=== PATIENT | female | born 1980 | race Caucasian/White ===

== ENCOUNTER → 2018-06-04 | Outpatient (CLI) | payer OTHER, SELFPAY | END | disposition home or self-care (01) | LOC: PSN 14:01 | PROVIDERS: Family Provider Family Medicine; PCP Family Medicine; Referring Provider Family Medicine; Visit Provider Family Medicine | DX: R00.2 Palpitations (principal) | CPT/HCPCS: 93225; 93226 ==

== ENCOUNTER → 2018-12-09 19:54 | Outpatient (CLI) | payer OTHER, SELFPAY | PROVIDERS: Family Provider Family Medicine; PCP Family Medicine; Referring Provider Family Medicine; Visit Provider Family Medicine | DX: G47.10 Hypersomnia, unspecified (principal); R06.83 Snoring | CPT/HCPCS: 95810 ==

== ENCOUNTER → 2019-01-28 20:17 | Outpatient (CLI) | payer OTHER, SELFPAY ==
[2018-12-27 07:39] VITALS: BMI 33.1
== END ==
PROVIDERS: Family Provider Family Medicine; PCP Family Medicine; Referring Provider Nurse Practitioner Acute Care; Visit Provider Nurse Practitioner Acute Care
DX: G47.33 Obstructive sleep apnea (adult) (pediatric) (principal)
CPT/HCPCS: 95811

== ENCOUNTER → 2019-02-01 06:52 | Outpatient (CLI) | payer OTHER, SELFPAY ==
[2018-12-27 07:39] VITALS: BMI 33.1
--- NOTE | 2019-02-07 09:23 | PFT ---
INTRODUCTION: The patient is a 38-year-old female that presents for pulmonary function studies secondary to a diagnosis of shortness of breath. Respiratory therapy reports good patient effort. Bronchodilators were used during testing. INTERPRETATION: Forced expiration spirometry demonstrates no evidence of a large airways obstructive ventilatory defect. There was no significant response to aerosolized bronchodilators. Spirograms are of good quality and plateau normally. The respiratory flow volume loop is normal. Body plethysmography was performed and reveals lung volumes to be within normal limits. Diffusing capacity by single breath CO was also within normal limits. IMPRESSION: Normal pulmonary function studies.
== END ==
PROVIDERS: Family Provider Family Medicine; PCP Family Medicine; Referring Provider Nurse Practitioner Acute Care; Visit Provider Nurse Practitioner Acute Care
DX: R06.02 Shortness of breath (principal)
CPT/HCPCS: 94060; 94726; 94729

== ENCOUNTER 2019-08-01 11:52 | Emergency (ER) | payer BC, SELFPAY ==
[2019-07-27 05:40] VITALS: BMI 32.5
[2019-08-01 11:54] VITALS: BP 130/76; PULSE 79; PULSE 81; RESP 14; RESP 18; TEMP 36.8; O2SAT 97; BMI 31.9
--- NOTE | 2019-08-01 12:24 | ED.DCSUM_ITS ---
History of Present Illness Chief Complaint: Wound Informant: Patient Onset: Today Context: Sudden Onset Narrative: Patient is a 39-year-old female status post hysterectomy presenting with bleeding wound on her right labia. Patient was taking a shower and she thinks she must of scratched hemangioma that she has had on her labia. She denies any pain. After she got the shower was drying her hair and pressure teeth noted she was bleeding. She applied direct pressure but continued to bleed so she came to the emergency room for further evaluation. Patient denies any other complaints at this time. She denies any history of any bleeding issues. She does not take any blood thinners or aspirin. She denies any lightheadedness. States she is otherwise feeling well today. No other complaints at this time. Past Medical History - Allergies and Home Meds Allergies/Adverse Reactions: Allergies amoxicillin [From Augmentin] Adverse Reaction (Mild, Verified 08/01/19 11:53) Abd cramps/diarrhea GI upset/Yeast infection clavulanic acid [From Augmentin] Adverse Reaction (Mild, Verified 08/01/19 11:53) Abd cramps/diarrhea GI upset/Yeast infection Primary Care Physician: Piter Andrew DO [Primary Care Provider] - Past Medical History: - - Rheumatoid arthritis Surgical History: hysterectomy Lives: Spouse/ Significant Other, With Family Smoking Status: Former smoker Review of Systems General: Denies: Chills, Fever, Sweats Eyes: Denies: Visual changes - bilaterally, Diplopia ENT: Denies: Rhinorrhea, Sore throat Cardiovascular: Denies: Chest pain, Palpitations Respiratory: Denies: Dyspnea, Cough, Dyspnea on exertion Gastrointestinal: Denies: Abdominal pain, Nausea, Vomiting, Diarrhea, Melena, Hematochezia Genitourinary: Denies: Dysuria, Hematuria, Frequency Musculoskeletal: Denies: Back pain, Extremity Pain Skin: Reports: Wounds - Right labia. Denies: Rash Neurological: Denies: Headache, Weakness, Numbness Physical Exam Vital Signs/Narrative: Vital Signs Temp Pulse Resp BP Pulse Ox 08/01/19 11:54 98.2 F 81 14 130/76 H 97 Inital Vital Signs reviewed: Yes General: Well nourished, Well developed, No Acute Distress Head: Normocephalic, Atraumatic Eyes: Perrl, EOMI ENT: Moist mucous membranes, No rhinorrhea Neck: Supple, Nontender Cardiovascular: Regular rate, Regular rhythm, No murmurs Respiratory: No distress, CTA bilaterally, Chest nontender Abdomen: Soft, Nontender, Nondistended, Normal bowel sounds : - - See skin exam. No external signs of any other trauma, edema or swelling. No internal exam performed. Back: Nontender, Normal Inspection. Negative for: CVA tenderness Extremities: Nontender, No edema Skin: Normal color, No rash, - - Small wound on the proximal inner right labia with dried blood. No active bleeding. There are 2 areas of dried blood next to each other, exact source of the blood is not entirely clear.. Negative for: Pallor Neurological: Alert, Oriented x3, Cranial nerves II-XII grossly intact, Normal Strength, Normal Sensation Psychological: Normal affect, Normal Mood Diagnostic/Tx/Re-eval - Medical Decision Making Patient is evaluated for bleeding wound after actually scratching hemangioma on her right labia. She appears nontoxic and in no acute distress. On my exam patient is no longer bleeding. Gelfoam will be applied to the area in case rebleeding does occur as well as a pressure dressing. Patient is agreeable this plan. She is instructed to follow-up with her PRESS PIPE INSPECTOR as needed. Patient is counseled on signs and symptoms requiring return to the emergency room. Patient verbalizes agreement and understand this plan. Patient discharged home in stable and improved condition. ED Disposition - Plan for ED Patient: Disposition: Home or Assisted Living Diagnosis: Open wound of genital labia Instructions: ED Abrasion Referrals: Piter Andrew DO [Primary Care Provider] - Additional Instructions: Continue to apply pressure with gauze for the next day or 2. You may put more Gelfoam on the area of bleeding if it starts to bleed again with initial Gelfoam falls off. Please follow-up with your PRESS PIPE INSPECTOR as needed.
[2019-08-01 12:42] VITALS: RESP 18
[2019-08-01] MEDS: Gelfoam 12-7 MM Sponge (1) 1 EACH TP (12:42)
== END 2019-08-01 12:44 | disposition home or self-care (01) ==
PROVIDERS: Emergency Provider Emergency Medicine; PCP Family Medicine
DX: S31.40XA Unspecified open wound of vagina and vulva, initial encounter (principal); X58.XXXA Exposure to other specified factors, initial encounter; Y93.E1 Activity, personal bathing and showering; Y92.9 Unspecified place or not applicable; M06.9 Rheumatoid arthritis, unspecified; Z87.891 Personal history of nicotine dependence
CPT/HCPCS: 99282

== ENCOUNTER → 2019-08-02 10:38 | Outpatient (CLI) | payer BC, SELFPAY ==
[2019-08-02 10:03] VITALS: BMI 31.3
--- NOTE | 2019-08-02 10:39 | RAD_ITS ---
STUDY: X-RAY - LUMBAR SPINE REASON FOR EXAM: Female, 39 years old. LBP TECHNIQUE: 4 view(s) of the lumbar spine were obtained. COMPARISON: None FINDINGS: Normal lumbar lordosis. There is a dextroscoliosis of the lumbar spine at the thoracolumbar junction.. There is a normal alignment of the vertebrae. Normal vertebral bodies and endplates. Normal disc space heights. The soft tissue structures are unremarkable. RAD/L/S Spine Min 4 Views IMPRESSION: Moderate/severe dextroscoliosis at the thoracal lumbar junction. Electronically Signed: Maximus Majano, at 10:35 EDT , Service support ,
--- NOTE | 2019-08-02 10:39 | RAD_ITS ---
STUDY: X-RAY - THORACIC SPINE REASON FOR EXAM: Female, 39 years old. BACK PAIN TECHNIQUE: AP and lateral view(s) of the thoracic spine were obtained. COMPARISON: None. FINDINGS: Normal kyphosis of the thoracic spine. Moderate levoscoliosis centered at the T6-T7 level. Normal thoracic vertebrae and endplates. Normal disc space heights. Marked degree of dextroscoliosis at the thoracal lumbar junction. The soft tissue structures are unremarkable. RAD/Thoracic Spine 2 Views IMPRESSION: Moderate levoscoliosis at the T6-T7 level as well as a marked degree of dextroscoliosis at the thoracolumbar junction. Electronically Signed: Maximus Majano, at 10:34 EDT , Service support ,
== END ==
PROVIDERS: PCP Family Medicine; Referring Provider Chiropractor; Visit Provider Chiropractor
DX: M99.03 Segmental and somatic dysfunction of lumbar region (principal); M06.9 Rheumatoid arthritis, unspecified; M45.9 Ankylosing spondylitis of unspecified sites in spine; M99.02 Segmental and somatic dysfunction of thoracic region
CPT/HCPCS: 72070; 72110

== ENCOUNTER 2019-08-08 16:40 | Outpatient (CLI) | payer BC, SELFPAY ==
[2019-08-02 10:03] VITALS: BMI 31.3
== END 2019-08-08 16:45 | disposition home or self-care (01) ==
LOC: LABSPEC 08-09 15:22
PROVIDERS: PCP Family Medicine; Referring Provider Family Medicine; Visit Provider Family Medicine
DX: Z20.828 Contact with and (suspected) exposure to other viral communicable diseases (principal)
CPT/HCPCS: 87635; G2023; U0003

== ENCOUNTER → 2019-12-30 09:50 | Outpatient (CLI) | payer BC, SELFPAY ==
[2019-09-13 16:35] VITALS: BMI 31.9
[2019-12-30 12:58] LABS: Hemoglobin A1c 6.3 % (3.8-5.6)
[2019-12-30 13:28] LABS: ALB/GLOB Ratio 1.1 RATIO (0.9-2.4); AST(SGOT) 4 U/L (15-37); Alanine Aminotransfer ALT/SGPT 19 U/L (13-56); Albumin, Serum 3.8 g/dL (3.2-5.0); Alkaline Phosphatase 58 U/L (45-117); Anion Gap 5 (5-15); BUN 8 mg/dL (7-18); BUN/Creat Ratio 10.5 RATIO (10-20); Calcium,Total 9.4 mg/dL (8.5-10.1); Chloride 105 mmol/L (98-107); Cholesterol 253 mg/dL (200); Creatinine, Serum 0.76 mg/dL (0.55-1.02); EST Glomerular Filtration Rate 91 mL/min (>60); Est Glom Filt Rate - Afr Amer 110 mL/min (>60); Globulin 3.6 g/dL (2.2-4.2); Glucose 113 mg/dL (74-106); High Density Lipoprotein 33 mg/dL; Potassium 3.8 mmol/L (3.5-5.1); Protein, Total 7.4 g/dL (6.4-8.2); Sodium Level 139 mmol/L (136-145); Triglycerides 172 mg/dL; Very Low Density Lipoprotein 34 mg/dL (5-40)
== END ==
PROVIDERS: PCP Family Medicine; Referring Provider Family Medicine; Visit Provider Family Medicine
DX: Z00.00 Encounter for general adult medical examination without abnormal findings (principal); R73.01 Impaired fasting glucose
CPT/HCPCS: 36415; 80053; 80061; 83036

== ENCOUNTER → 2020-08-09 15:27 | Outpatient (CLI) | payer BC, SELFPAY ==
[2020-08-09 13:30] VITALS: BMI 34.5
[2020-08-09 16:42] LABS: NATERA MAILED SPECIMEN
[2020-08-09 17:11] LABS: Prolactin 3.5 ng/mL
== END ==
PROVIDERS: PCP Family Medicine; Visit Provider Obstetrics & Gynecology
DX: R53.83 Other fatigue (principal)
CPT/HCPCS: 36415; 84146; 84443

== ENCOUNTER → 2021-09-11 | Outpatient (CLI) | payer OTHER, SELFPAY ==
--- NOTE | 2021-09-11 12:02 | BI_ITS ---
MAMMOGRAPHY - BILATERAL SCREENING 3-D TOMOSYNTHESIS REASON FOR EXAM: Female, 41 years old. Breast cancer screening. PERTINENT HISTORY: History of breast cancer in grandmother, age not identified. TECHNIQUE: 2-D mammograms and 3-D Tomosynthesis of the breast (s) were performed. CAD was performed. COMPARISON: 03/29/2015. FINDINGS: The breast composition is almost entirely fat. 2 new low density partially obscured masses in the upper outer quadrant of the left breast the most medial of these measures 12 mm in diameter and the most lateral measures 11 mm in diameter. These likely represent cysts. However, the patient should return for compression spot views and ultrasound of the left breast for further evaluation of these low-density masses. Right breast is stable. BI/SCRN MAMM (CAD)W/JASMYNE BILAT IMPRESSION: 2 new low density, partially obscured masses in the left breast for which further workup, as outlined above, is recommended. ASSESSMENT CATEGORY: BIRADS Category 0: Incomplete. Need additional imaging evaluation as above. A letter regarding these results will be sent to the patient by the facility within 30 days. FOLLOW UP RECOMMENDATION: Additional imaging recommended as above. (E) Approximately 10% of breast cancers are not detected by mammography. A normal mammogram should not delay biopsy of a clinically suspicious abnormality. Electronically Signed: Danny Christie MD at 13:59 EDT ,
== END | disposition home or self-care (01) ==
LOC: OPBI 12:01
PROVIDERS: PCP Family Medicine; Visit Provider Obstetrics & Gynecology
DX: Z12.31 Encounter for screening mammogram for malignant neoplasm of breast (principal)
CPT/HCPCS: 77063; 77067

== ENCOUNTER → 2021-09-17 | Outpatient (CLI) | payer OTHER, SELFPAY ==
--- NOTE | 2021-09-17 14:16 | BI_ITS ---
MAMMOGRAPHY - UNILATERAL DIAGNOSTIC: LEFT BREAST REASON FOR EXAM: Female, 41 years old. Abnormal screening mammogram. PERTINENT HISTORY: Grandmother with breast cancer. TECHNIQUE: Digital unilateral breast dakotah (3D mammographic acquisition) in the CC and MLO projections. 2-D mediolateral oblique (MLO) and craniocaudad (CC) views of both breasts were obtained. CAD: Full Field Digital Mammography with Computer Added Detection was performed. COMPARISON: Comparison is made with prior study dated 09/11/2021. FINDINGS: Breast Composition: There are scattered areas of fibroglandular density. Stable appearance of the 2 low density nodules in the upper outer quadrant of the left breast. Correlation with ultrasound is recommended. No other significant abnormalities are identified. BI/DIAG MAMM W/CAD, UNILAT IMPRESSION: Persistent nodules in the anterior upper outer quadrant of the left breast as described. Correlation with ultrasound is recommended. ASSESSMENT CATEGORY: BIRADS Category 0: Incomplete. Need additional imaging evaluation. A letter regarding these results will be sent to the patient by the facility within 30 days. Approximately 10% of breast cancers are not detected by mammography. A normal mammogram should not delay biopsy of a clinically suspicious abnormality. Electronically Signed: Maximus Majano MD at 15:11 EDT ,
--- NOTE | 2021-09-17 14:48 | US_ITS ---
STUDY: ULTRASOUND BREAST - LEFT REASON FOR EXAM: Female, 41 years old. Abnormal screening mammogram. TECHNIQUE: Axial and longitudinal images of the LEFT breast were performed with a high resolution ultrasound transducer. # OF IMAGES: 60 COMPARISON: Comparison is made with prior mammogram dated 09/11/2021 and 09/17/2021. FINDINGS: LEFT Breast: The mammographic abnormality corresponds to a cluster of cysts at the 12 o''clock position of the breast at 3 cm from the nipple. The largest cyst measures 1 cm x 1 cm x 0.4 cm. US/Breast Limited Unilateral IMPRESSION: The mammographic abnormality corresponds to a cluster of cysts at the 12 o''clock position of the breast at 3 cm from nipple. ASSESSMENT CATEGORY: BIRADS Category 2: Benign. A letter regarding these results will be sent to the patient by the facility within 30 days. Electronically Signed: Maximus Majano MD at 8:47 EDT ,
== END | disposition home or self-care (01) ==
LOC: OPBI 14:14
PROVIDERS: PCP Family Medicine; Visit Provider Obstetrics & Gynecology
DX: R92.2 Inconclusive mammogram (principal)
CPT/HCPCS: 76642; 77065

== ENCOUNTER → 2021-10-09 | Outpatient (CLI) | payer OTHER, SELFPAY ==
[2021-10-09 10:06] LABS: Absolute Lymphocyte Count 3.12 X10^3/uL (0.83-4.51); Absolute Neutrophil Count 4.8 X10^3/uL (2.0-7.7); Basophil# 0.05 X10^3/uL; Basophil% 0.6 % (0-1); Eosinophil# 0.23 X10^3/uL; Eosinophils% 2.7 % (0-5); Hematocrit 39.1 % (37-47); Hemoglobin 13.5 g/dL (12.0-15.0); Lymphocyte # 3.12 X10^3/ul (0.83-4.51); Mean Corp Hgb Conc 34.5 g/dL (32-36); Mean Corpuscular Hgb 31.2 pg (27.0-32.0); Mean Corpuscular Volume 90.3 fL (81-99); Mean Platelet Vol. 10.4 fl (6.2-12.0); Monocyte# 0.43 X10^3/uL; NRBC Flagged by Analyzer 0 % (0-5); Neutrophil # 4.81 X10^3/uL (2.7-7.7); Neutrophil % 55.4 % (47-70); Platelet Count 296 K/mm3 (150-450); RBC Distribution Width CV 12.3 % (11.6-14.6); RBC Distribution Width SD 40.6 fl (35.1-43.9); Red Blood Count 4.33 M/mm3 (4.2-5.4); White Blood Count 8.7 K/mm3 (4.4-11.0)
[2021-10-09 10:21] LABS: Insulin 19.9 mU/L (2.6-37.6)
[2021-10-09 10:23] LABS: Hemoglobin A1c 7.7 % (3.8-5.6)
[2021-10-09 10:26] LABS: ALB/GLOB Ratio 0.9 RATIO (0.9-2.4); AST(SGOT) 8 U/L (15-37); Alanine Aminotransfer ALT/SGPT 18 U/L (13-56); Albumin, Serum 3.4 g/dL (3.2-5.0); Alkaline Phosphatase 51 U/L (45-117); Anion Gap 10 (5-15); BUN 14 mg/dL (7-18); BUN/Creat Ratio 17.5 RATIO (10-20); Calcium,Total 8.8 mg/dL (8.5-10.1); Chloride 102 mmol/L (98-107); Cholesterol 243 mg/dL (200); EST Glomerular Filtration Rate 85 mL/min (>60); Est Glom Filt Rate - Afr Amer 102 mL/min (>60); Globulin 3.9 g/dL (2.2-4.2); Glucose 227 mg/dL (74-106); High Density Lipoprotein 42 mg/dL; Protein, Total 7.3 g/dL (6.4-8.2); Sodium Level 136 mmol/L (136-145); Thyroid Stim Hormone (TSH) 2.51 uIU/mL (0.358-3.74); Triglycerides 230 mg/dL; Very Low Density Lipoprotein 46 mg/dL (5-40)
== END | disposition home or self-care (01) ==
PROVIDERS: PCP Family Medicine; Referring Provider Family Medicine; Visit Provider Family Medicine
DX: Z00.00 Encounter for general adult medical examination without abnormal findings (principal); E78.5 Hyperlipidemia, unspecified; R73.01 Impaired fasting glucose; R79.89 Other specified abnormal findings of blood chemistry
CPT/HCPCS: 36415; 80053; 80061; 83036; 83525; 84443; 85025

== ENCOUNTER 2022-11-14 15:00 | Outpatient (RCR) | payer OTHER, SELFPAY ==
--- NOTE | 2022-10-24 09:34 | HP.PTEVAL ---
Patient's Visit Information Visit Information Visit Information: ELVIA ARZOLA is a 42 year old F referred to Physical Therapy by Dr. Navin Joseph MD with a diagnosis of , SI DYSFUNCTION, AND SACROILITIS. Date of Evaluation: 10/24/22 Physical Therapist: Elli Recinos PT, Cert MDT Visit Plan Frequency: 2x /Week Duration: 4-6 Weeks Plan: *WRITTEN HEP INSTRUCTIONS TO SUPPLEMENT WATER EX* AQUATIC THERAPY FOR PAIN RELEIF, POSTURE CORRECTION/STRENGTHENING, INSTRUCTION IN APPROPRIATE BODY MECHANICS AND ACTIVITY MODIFICATIONS. DLS STARTING WITH A NEUTRAL SPINE PROGRESSING ROM TOLERATED. TRUDY LE ROM, STRETCHING AND STRENGTHENING. HEP INSTRUCTION. 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. Disability: NO Present symptoms: LEFT LOW BACK/SI JOINT AREA PAIN AND LOW BACK ACHINESS ACROSS TRUDY LOW BACK. INTERMITTENT R LE NUMBNESS. 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 Symptoms at onset: LOW BACK PAIN Worse: SITTING IN THE CAR TOO LONG, PROLONGED STANDING, BENDING/GARDENING, TRYING TO STAND UP AFTER PROLONGED BENDING, PROLONGED WALKING/WALKING MORE THAN A FEW MILES. Better: HEAT, MASSAGE, STEROIDS, ANTI-INFLAMMATORY, M. RELAXER, BIOFREEZE. Disturbed sleep: YES Previous history/Previous treatment: MEDICATION, MASSAGE, ACCUPUNCTURE. CHIROPRACTIC A FEW YEARS AGO - WITH BENEFIT FOR ACUTE SX'S. NO INGRIS'S. NO BACK SURGERY. Treatment this episode: MEDICATION AND MASSAGE. PLANNING TO TRY INJECTIONS TO HELP THE PAIN. Coughing/sneezing/straining: NE Gait: STIFFNESS ESPECIALLY IN THE MORNING AND DIFFICULTY STANDING UP STRAIGHT. LEFT LEG ROLLS OUT. Bowel or Bladder Dysfunction: NO Accidents: NO Unexplained weight loss: NO Imagin10/20/22 LUMBAR X-RAY: Stable thoracolumbar dextroscoliosis with chronic L5-S1 degenerative facet arthropathy. 10/20/22 PELVIC X-RAY: MPRESSION: Minimal right acetabular spurring otherwise normal x-ray examination of the pelvis. 10/20/22: X-RAY OF SI JTS: IMPRESSION: Mild SI joint arthrosis. PMH/Recent major surgery: TYPE 2 DIABETIC. RA. Objective Objective: Sitting/Standing Posture: SCOLIOSIS Other Observations: INDEP GAIT AND TRANSFERS. Sensory deficit: TRUDY LE LIGHT TOUCH SENSATION GROSSLY INTACT AND SYMMETRICAL. ROM deficit: TRUDY HIP IR L>R, HS AND GASTROC-SOLEUS COMPLEX TIGHTNESS Motor deficit: TRUDY LE STRENGTH GROSSLY 5/5 WITH MMT'ING EXCEPT HIPS 4/5 Reflexes: 2/3 TRUDY LE'S. Dural Signs: NEGATIVE TRUDY LE'S. Lumbar mvmt loss: flex - NIL ext - MOD TO DIAMOND - INCREASES L LOW BACK/SI JT AREA PAIN R SG - MIN L SG - MOD Core strength: FAIR Palpation: TENDERNESS L SI JT REGION AND SACRAL REGION Balance/Special Test Scores Oswestry Low Back Score: 14 Goals Goal 1:: DECREASE C/O LOW BACK, SACRAL, PELVIC AND LE SX'S. Goal Time Frame: 4-6 Weeks Goal 2:: IMPROVE PERSONAL CARE, LIFTING, WALKING, SITTING, STANDING, SOCIAL LIFE, TRAVEL AND WORK/HOMEMAKING FUNCTION. Goal Time Frame: 4-6 Weeks Goal 3:: INSTRUCT IN PROPHYLAXIS Goal Time Frame: 4-6 Weeks Anticipated Interventions Patient/Client Instruction: Educate patient on: Condition, Plan of Care and Risk Factors For the Purpose of:: To improve self management Therapeutic Exercise to Include: Strength training, Body mechanics, Postural training, Flexibilty training, Gait and locomotor training, Neuromotor development, In an aquatic setting and Dynamic Lumbar Stabilization For the Purpose of:: To decrease pain, To increase ROM, To improve muscle performance and motor function, To increase tolerance to activity/condition/position, To improve ability of physical actions for home/community/work/leisure and To improve gait and locomotor functions Text: Thank you for the opportunity to evaluate your patient. For Medicare and Medicare HMO plans, please review the plan of care and approve it. It will need to be FAXED BACK to us at [phone] for Medicare purposes. For Medicare only, by signing this I certify the plan of care. Please let me know if there are questions or concerns regarding this plan of care. Physician Signature: Date:
--- NOTE | 2022-11-19 10:31 | HP.PTDCSUM ---
Discharge Summary D/C summary: It has been my pleasure to treat ELVIA ARZOLA referred by Dr. Navin Joseph MD, with the diagnosis of , SI DYSFUNCTION, AND SACROILITIS for a total of 7 visit(s). Discharge Date: Please see the following information for a summary of their discharge status. Subjective Subjective: PATIENT STATES SHE GOT TRUDY SI JOINT INJECTIONS FROM DR. VILLAREAL THIS MORNING AND SHE STILL FEELS NUMBING. DIDN'T KNOW SHE WAS GOING TO HAVE INJECTIONS UNTIL YESTERDAY. PATIENT STATES SHE LOVES THE POOL AND IT FELT GOOD INI THE POOL BUT SHE THINKS HER SI AND LBP WAS WORSE OVER ALL ON [place] AFTER STARTING THE WATER THERAPY. SHE REPORTS HAVING SOME GOOD MUSCLE SORENESS AND WAS SURPRISED BY HOW CHALLENGING THE POOL EX'S COULD BE. SHE REPORTS SHE IS CHANGING JOBS AND ISN'T GOING TO HAVE INSURANCE FOR AWHILE. Pain LB: Pain Intensity (Out of 10): 4 Overall Improvement % Improvement: 0 Objective Objective/Function: Deferred physical examination today due to just having injections this morning. Discussed possible benefits of aquatic therapy in conjunction with injections and patient will consider. Goals Goal 1:: DECREASE C/O LOW BACK, SACRAL, PELVIC AND LE SX'S. Goal Progress: Not Progressing Goal 2:: IMPROVE PERSONAL CARE, LIFTING, WALKING, SITTING, STANDING, SOCIAL LIFE, TRAVEL AND WORK/HOMEMAKING FUNCTION. Goal Progress: Not Progressing Goal 3:: INSTRUCT IN PROPHYLAXIS Goal Progress: Not Progressing Plan Plan: D/C AT THIS TIME TO INDEP HEP. PATIENT AGREEABLE. D/C Information d/c sentence: If there are questions or concerns regarding this patient's physical therapy, please feel free to call me at [phone]. Thank you for the referral of this patient. Sincerely, Elli Recinos, PT, Cert MDT Balance/Gait/Functional tests Balance/Special Test Scores Oswestry Low Back Score: 13 Improvement % Improvement: 0
== END 2022-11-14 19:00 | disposition home or self-care (01) ==
LOC: PT 15:00
PROVIDERS: PCP Family Medicine; Referring Provider Anesthesiology Pain Medicine; Visit Provider Anesthesiology Pain Medicine
DX: M46.1 Sacroiliitis, not elsewhere classified (principal); M45.9 Ankylosing spondylitis of unspecified sites in spine
CPT/HCPCS: 97113; 97162

== ENCOUNTER → 2022-11-14 | Outpatient (CLI) | payer OTHER, SELFPAY ==
--- NOTE | 2022-11-14 12:24 | BI_ITS ---
MAMMOGRAPHY - BILATERAL SCREENING REASON FOR EXAM: Female, 42 years old. Routine annual screening examination. PERTINENT HISTORY: Mother with breast cancer. Grandmother with breast cancer. TECHNIQUE: Digital bilateral breast jasmyne (3D mammographic acquisition) in the CC and MLO projections. 2-D mediolateral oblique (MLO) and craniocaudad (CC) views of both breasts were obtained. CAD: Full Field Digital Mammography with Computer Added Detection was performed. COMPARISON: Comparison is made with prior study dated September 11, 2021 and September 17, 2021. FINDINGS: Breast Composition: The breasts are almost entirely fatty. 2 adjacent nodular densities are seen along the anterior upper central portion of the left breast. The larger nodule measures 1.1 cm. Prior ultrasound demonstrated these 2 nodules to be cysts. No other significant abnormalities are identified. There has been no significant change since the prior study. BI/SCRN MAMM (CAD)W/JASMYNE BILAT IMPRESSION: Stable bilateral screening mammogram. Yearly follow-up mammogram recommended. (A) ASSESSMENT CATEGORY: BIRADS Category 2: Benign. A letter regarding these results will be sent to the patient by the facility within 30 days. Approximately 10% of breast cancers are not detected by mammography. A normal mammogram should not delay biopsy of a clinically suspicious abnormality. [id number] Electronically Signed: Maximus Majano MD at 13:58 EDT ,
== END | disposition home or self-care (01) ==
LOC: OPBI 12:23
PROVIDERS: PCP Family Medicine; Referring Provider Nurse Practitioner Family; Visit Provider Nurse Practitioner Family
DX: Z12.31 Encounter for screening mammogram for malignant neoplasm of breast (principal); Z80.3 Family history of malignant neoplasm of breast
CPT/HCPCS: 77063; 77067

== ENCOUNTER → 2023-02-06 | Outpatient (CLI) | payer OTHER, SELFPAY ==
--- OUTSIDE RECORDS SUMMARY | 2023-02-06 07:22 | XMS RPT_ITS | CCD ---
Author Name Unknown Address [address] [place] [address] Organization [facility] Care Team Providers Care Nuclear Reactor Technician Name Role Phone Tara Del Valle Unavailable Josafat Vargas Unavailable Royal Huddleston Unavailable Travel Rn, System Unavailable Unavailable Lindsay Vaca Unavailable Unavailable Vanessa Meraz Unavailable Unavailable Unavailable Unavailable Medications Completed/Discontinued Medications Medication Drug Class(es) Dates Sig (Normalized) Sig (Original) 0.8 ml adalimumab 50 mg/ml prefilled syringe (5 sources) Tumor Necrosis Factor Jackelyn Start: 09-08-2013 HUMIRA, 40MG/0.8ML (Subcutaneous Kit) 1 (one) Kit q 2 weeks for 0 days Quantity: 1 Kit Refills: 0 Ordered: 08-Sep-2013 Tara Del Valle DO, DO, Kathleen Start : 08-Sep-2013 Active Problems Active Problems Problem Classification Problem Date Documented Da te Episodic/Chronic Abdominal pain (9 sources) Generalized abdominal pain; Translations: [Abdominal pain, acute, generalized] Resolved: 05-13-2012 12-25-2014 Episodic Diabetes mellitus without complication (20 sources) Abnormal glucose tolerance test; Translations: [Hyperglycemia] 12-22-2014 Episodic Past or Other Problems Problem Classification Problem Date Documented Date Episodic/Chronic Other aftercare (1 source) Post-discharge follow-up; Translations: [Hospital discharge follow-up] 10-30-2014 Unclassified (20 sources) Unclassified (9 sources) Patient encounter status; Translations: [Annual physical exam] 10-30-2014 Unclassified (9 sources) Weight Gain (783.1) Unclassified (3 sources) EXAMINATION, ROUTINE MEDICAL (V70.0) Unclassified (6 sources) Abdominal Pain,General (789.07) Unclassified (3 sources) Hospital discharge follow-up (V67.59) Unclassified (9 sources) Abnormal Blood Chemistry (790.6) Unclassified (10 sources) Unspecified Diagnosis 10-30-2014 Unclassified (6 sources) HYPERCHOLESTEREMIA (272.0) Unclassified (3 sources) Arthralgia NEGATED: Highlighted row has been ruled out!Unclassified (5 sources) Problem Onset: 2 10-30-2014 Results Test Name Value Interpretation Reference Range Facil ity Vital Signs Date Time Vital Sign Value Performing Clinician Facility 10-30-2014 10: BMI (Body Mass Index) 32.62 kg/m2 Vanessa Meraz RN [facility] Work Phone: 10-30-2014 10: Body Temperature 97.6 [degF] Vanessa Meraz RN [facility] Work Phone: Encounters Encounter Date Encounter Type Care Provider Facility Start: 10-30-2014 End: 10-30-2014 Patient encounter procedure Vanessa Meraz RN [facility]; [facility] Work Phone: Start: 10-30-2014 End: 10-30-2014 Periodic preventive med est patient 18-39 yrs [facility] Start: 09-08-2013 End: 09-08-2013 Initial preventive medicine new pt age 18-39yrs [facility] Start: 09-08-2013 End: 09-08-2013 Patient encounter procedure Tara Del Valle DO Work Phone: [facility] Start: 08-18-2012 End: 08-18-2012 Patient encounter procedure [facility] Start: 07-14-2012 End: 07-14-2012 Patient encounter procedure [facility] Start: 06-25-2012 End: 06-25-2012 Patient encounter procedure Tara Del Valle [facility] Start: 06-11-2012 End: 06-11-2012 Patient encounter procedure Tara Del Valle [facility] Start: 05-28-2012 End: 05-28-2012 Patient encounter procedure Tara Del Valle [facility] Start: 05-13-2012 End: 05-13-2012 Patient encounter procedure Tara Del Valle [facility] Start: 05-05-2012 End: 05-05-2012 Patient encounter procedure Tara Del Valle [facility] Start: 10-06-2011 End: 10-06-2011 Patient encounter procedure Tara Del Valle [facility] Start: 10-06-2011 End: 10-06-2011 Patient encounter status Tara Del Valle DO Work Phone: [facility] Patient encounter procedure Tara Del Valle DO Work Phone: [facility]; [facility] Work Phone: Patient encounter status Lindsay Vaca [facility]; [facility] Work Phone: Procedures Date Procedure Procedure Detail Performing Clinician Start: 03-29-2015 End: 03-29-2015 Breast Limited Unilateral Comments: See Note; NOTES: [facility] Imaging Services [address] [place] [address] Verdana 4d Breast Limited Unilateral MR#: [id number] Acct: [id number] Name: ELVIA ARZOLA Rep #: [id number] : 1980 F 34 From: Maximus Majano MD PCP: Tara Del Valle DO Status: REG CLI Study: Breast Limited Unilateral Date of Exam: 03/29/15 Exam# [id number] Ordering Dr: Josafat Muñoz MD STUDY: ULTRASOUND BREAST - RIGHT REASON FOR EXAM: Female, 34 years old. Bilateral breast discharge. TECHNIQUE: Axial and longitudinal images of the RIGHT breast were performed with a high resolution ultrasound transducer. COMPARISON: Comparison is made with prior mammogram done earlier in the day. FINDINGS: RIGHT Breast: Mildly dilated subareolar ducts. IMPRESSION: Mildly dilated subareolar ducts. ASSESSMENT CATEGORY: BIRADS Category 2: Benign. A letter regarding these results will be sent to the patient by the facility within 30 days. Electronically Signed: Maximus Majano MD at 10:47 EST Tel [phone], Service support [phone], STUDY: ULTRASOUND BREAST - LEFT REASON FOR EXAM: Female, 34 years old. Bilateral nipple discharge. TECHNIQUE: Axial and longitudinal images of the LEFT breast were performed with a high resolution ultrasound transducer. COMPARISON: Comparison is made with prior mammogram done earlier in the day. FINDINGS: LEFT Breast: Unremarkable examination. IMPRESSION: Unremarkable examination. ASSESSMENT CATEGORY: BIRADS Category 1: Negative. A letter regarding these results will be sent to the patient by the facility within 30 days. Electronically Signed: Maximus Majano MD at 10:48 EST Tel [phone], Service support [phone], CC: Josafat Muñoz MD; Tara Del Valle DO Biomedical Scientist: Signed Tara Del Valle Start: 03-29-2015 End: 03-29-2015 Bilat Diag Digital AND CAD Comments: See Note; NOTES: [facility] Imaging Services [address] [place] [address] Verdana 4d Bilat Diag Digital AND CAD MR#: [id number] Acct: [id number] Name: ELVIA ARZOLA Rep #: [id number] : 1980 F 34 From: Maximus Majano MD PCP: Tara Del Valle DO Status: [facility] CLI Study: Bilat Diag Digital AND CAD Date of Exam: 03/29/15 Exam# [id number] Ordering Dr: Josafat Muñoz MD MAMMOGRAPHY - BILATERAL DIAGNOSTIC REASON FOR EXAM: Female, 34 years old. Bilateral nipple discharge. PERTINENT HISTORY: Grandmother with breast cancer. TECHNIQUE: Digital examination. Mediolateral oblique (MLO) and craniocaudad (CC) views of both breasts were obtained. CAD: CAD was performed on this study. COMPARISON: None. Baseline examination. FINDINGS: Breast Composition: There are scattered areas of fibroglandular density. There are no dominant masses or suspicious calcifications. No other significant abnormalities are identified. IMPRESSION: Negative diagnostic mammogram. With the patient's history of bilateral nipple discharge, correlation with ultrasound is recommended. ASSESSMENT CATEGORY: BIRADS Category 0: Incomplete. Need additional imaging evaluation. A letter regarding these results will be sent to the patient by the facility within 30 days. Approximately 10% of breast cancers are not detected by mammography. A normal mammogram should not delay biopsy of a clinically suspicious abnormality. Electronically Signed: Maximus Majano MD at 10:30 EST Tel [phone], Service support [phone], CC: Josafat Muñoz MD; Tara Del Valle DO Biomedical Scientist: Signed Tara Del Valle Start: 09-22-2014 End: 09-22-2014 Pelvis (Routine) Comments: See Note; NOTES: [facility] Imaging Services [address] [place] [address] MRI Report MR#: [id number] Acct: [id number] Name: ELVIA ARZOLA Rep #: [id number] : 1980 F 34 From: Dung Joseph MD PCP: Tara Del Valle DO Status: REG CLI Study: Pelvis (Routine) Date of Exam: 09/22/14 Exam# [id number] Ordering Dr: Jennifer Benitez STUDY: MRI BILATERAL HIPS T PELVIS REASON FOR EXAM: Female, 34 years old. Pain in the left sacroiliac area and low back for 5 years. No injury. Suspect sacroiliitis. TECHNIQUE: Standardized fat and water weighted pulse sequences were obtained in all 3 orthogonal planes. COMPARISON: Prior CT of the abdomen and pelvis on 05-03-12. FINDINGS: RIGHT HIP Normal hip joint without articular joint space narrowing. Normal right acetabulum. Normal right labrum. Normal right femoral head. Normal right femoral neck and intratrochanteric region. Normal right gluteus minimus, medius and iliopsoas tendons and distal insertions. Normal right superior and inferior pubic rami. Normal right pubic symphysis. Normal right ischial tuberosity. Normal origin of the right hamstring tendons. Normal visualized right iliac wing, sacroiliac joint, and sacral ala. Normal visualized soft tissue structures of the pelvis. LEFT HIP Normal left hip joint without articular joint space narrowing. Normal left acetabulum. Normal left labrum. Normal left femoral head. Normal left femoral neck and intratrochanteric region. Normal left gluteus minimus, medius and iliopsoas tendons and distal insertions. Normal left superior and inferior pubic rami. Normal left pubic symphysis. Normal left ischial tuberosity. Normal origin of the left hamstring tendons. There is left sacroiliitis with sclerosis of the sacrum and iliac bone adjacent to the left sacroiliac joint and widening of the sacroiliac joint. No edema. The findings correlate with the areas of sclerosis noted in the same location on the prior CT examination. The findings are consistent with chronic left sacroiliitis. Differential diagnostic considerations include chronic psoriatic arthritis, reactive arthritis, or seropositive arthritis Normal visualized soft tissue structures of the pelvis. IMPRESSION: The findings are consistent with chronic left sacroiliitis with sclerotic reaction as described above. Differential diagnostic considerations include chronic psoriatic arthritis, reactive arthritis, or seropositive arthritis. Electronically Signed: Dung Joseph MD, FACR at 13:55 EDT , Service support [phone], CC: JENNIFER BENITEZ; Tara Del Valle DO Biomedical Scientist: Signed Tara Eligio Start: 09-14-2014 End: 09-14-2014 Chest PA and Lateral Comments: See Note; NOTES: [facility] Imaging Services [address] [place] [address] Radiology Report MR#: [id number] Acct: [id number] Name: ELVIA ARZOLA Rep #: [id number] : 1980 F 34 From: Clarence Clement DO PCP: Tara Del Valle DO Status: REG CLI Study: Chest PA and Lateral Date of Exam: 09/14/14 Exam# [id number] Ordering Dr: Jennifer Benitez STUDY: X-RAY CHEST REASON FOR EXAM: Female, 34 years old. Arthralgia. TECHNIQUE: PA and lateral views of the chest. COMPARISON: January 05, 2013 FINDINGS: The lungs are clear and expanded. There is no demonstrated pleural abnormality. Normal size heart. Normal mediastinum and isi. Normal visualized pulmonary arteries. Normal visualized aortic arch and descending thoracic aorta. Again seen is marked scoliosis of the thoracolumbar spine, which is unchanged from the previous study. There is degenerative osteoarthritis of the bilateral shoulders. There is no demonstrated abnormality of the visualized soft tissue structures of the upper abdomen. IMPRESSION: 1. No acute cardiopulmonary disease. 2. Stable scoliosis when compared with January 05, 2013. Electronically Signed: Clarence Clement DO at 16:38 EDT Tel [phone], Service support [phone], RAD/Chest PA and Lateral IMPRESSION: 1. No acute cardiopulmonary disease. 2. Stable scoliosis when compared with January 05, 2013. Electronically Signed: Clarence Clement DO at 16:38 EDT Tel [phone], Service support [phone], CC: JENNIFER BENITEZ; Tara Del Valle DO Biomedical Scientist: Signed Tara Del Valle Start: 02-09-2002 End: 02-09-2002 Tonsillectomy Vanessa Palumbo Kt H/O: surgery Tonsillectomy Vanessa L Kt R N Plan of Treatment Date Care Activity Detail Author Start: 02-22-2016 HbA1c (Bld) [Mass fraction] Hemoglobin Glyclated (HGB A1C) (24379) [facility] Work Phone: Start: 02-22-2016 Hemoglobin glycosylated a1c Hemoglobin Glyclated (HGB A1C) (95691) [facility]; [facility] Work Phone: Start: 10-25-2015 HbA1c (Bld) [Mass fraction] Hemoglobin Glyclated (HGB A1C) (37779) [facility] Work Phone: Start: 10-25-2015 Hemoglobin glycosylated a1c Hemoglobin Glyclated (HGB A1C) (63375) [facility]; [facility] Work Phone: Start: 06-27-2015 HbA1c (Bld) [Mass fraction] Hemoglobin Glyclated (HGB A1C) (08341) [facility] Work Phone: Start: 06-27-2015 Hemoglobin glycosylated a1c Hemoglobin Glyclated (HGB A1C) (45418) [facility]; [facility] Work Phone: Start: 02-27-2015 HbA1c (Bld) [Mass fraction] Hemoglobin Glyclated (HGB A1C) (41154) [facility] Work Phone: Start: 02-27-2015 Hemoglobin glycosylated a1c Hemoglobin Glyclated (HGB A1C) (65192) [facility]; [facility] Work Phone: Start: 10-30-2014 Procedure Education Eprescribed prescriptions (G8553) [facility] Work Phone: Start: 10-30-2014 Provider Instructions for Treatment Follow up in 4 months [facility] Work Phone: Start: 10-30-2014 HbA1c (Bld) [Mass fraction] Hemoglobin Glyclated (HGB A1C) (96801) [facility] Work Phone: Start: 10-30-2014 Hemoglobin glycosylated a1c Hemoglobin Glyclated (HGB A1C) (13460) [facility]; [facility] Work Phone: Start: 10-30-2014 Hepatic function panel HEPATIC FUNCTION PANEL (95310) [facility] Work Phone: Start: 10-30-2014 Lipid panel LIPID PANEL (97715) [facility] Work Phone: Start: 09-08-2013 Provider Instructions for Treatment [facility] Work Phone: Start: 09-08-2013 Lipid panel LIPID PANEL (72047) [facility] Work Phone: Payers Date Payer Category Payer Policy ID Unknown [facility] Social History Date Type Detail Facility Alcohol Use: Alcohol Use: [facility] Work Phone: Caffeine Use Caffeine Use [facility] Work Phone: Instructions Note Date & Type Note Facility [facility]; [facility] Work Phone: Instructions Note Date & Type Note Facility [facility]; [facility] Work Phone: Summary Purpose Family History Unknown Family Member Name Dates Details Alcohol Abuse Comments:Father. Paternal Gr andfather. Status:Active Depression Comments:Father. Status:Active Diabetes Mellitus Comments:Paternal Aunt. Status:Active Hypertension Comments:Father. Status:Active Sudden Comments:Father. Status:Active Thyroid problems Comments:Maternal Grandmothe r. Status:Active Unknown Family Member Name Dates Details Alcohol Abuse Comments:Father. Paternal Gr andfather. Status:Active Depression Comments:Father. Status:Active Diabetes Mellitus Comments:Paternal Aunt. Status:Active Hypertension Comments:Father. Status:Active Sudden Comments:Father. Status:Active Thyroid problems Comments:Maternal Grandmothe r. Status:Active Unknown Family Member Name Dates Details Alcohol Abuse Comments:Father. Paternal Gr andfather. Status:Active Depression Comments:Father. Status:Active Diabetes Mellitus Comments:Paternal Aunt. Status:Active Hypertension Comments:Father. Status:Active Sudden Comments:Father. Status:Active Thyroid problems Comments:Maternal Grandmothe r. Status:Active Advance Directives No Advanced Directives Records Found Instructions Name Dates Details How to access health informa tion online Indication:Annual physical exam Start:30-Oct-2014 Instruction Type:Patient Education How to access health informa tion online - Detail Indication:Annual physical exam Start:30-Oct-2014 Instruction Type:Patient Education Patient Instructions Indication:Annual physical exam Start:30-Oct-2014 Instruction Type:Provider Instructions for Treatment How to access health informa tion online Indication:Annual physical exam Start:08-Sep-2013 Instruction Type:Patient Education How to access health informa tion online - Detail Indication:Annual physical exam Start:08-Sep-2013 Instruction Type:Patient Education obesity counseling Indication:Weight Gain Start:18-Aug-2012 Instruction Type:Provider Instructions for Treatment Patient Instructions Indication:Obesity (BMI 30-39.9) Start:14-Jul-2012 Instruction Type:Provider Instructions for Treatment Patient Instructions Indication:Obesity (BMI 30-39.9) Start:11-Jun-2012 Instruction Type:Provider Instructions for Treatment obesity counseling Indication:Obesity (BMI 30-39.9) Start:28-May-2012 Instruction Type:Provider Instructions for Treatment Patient Instructions Indication:Obesity (BMI 30-39.9) Start:28-May-2012 Instruction Type:Provider Instructions for Treatment Patient Instructions Indication:Abdominal pain, acute, generalized Start:13-May-2012 Instruction Type:Provider Instructions for Treatment Patient Instructions Indication:Hospital discharge follow-up Start:05-May-2012 Instruction Type:Provider Instructions for Treatment Patient Instructions: do t and execise repeat chol panel in 4-6 months Indication:Encounter for routine adult medical examination Start:06-Oct-2011 Instruction Type:Provider Instructions for Treatment Additional Source Comments INFORMATION SOURCE (unrecogn ized section and content) FOR RECORDS PERTAINING TO PATIENTS WHO ARE OR HAVE BEEN ENROLLED IN A CHEMICAL DEPENDENCY/SUBSTANCEABUSE PROGRAM, SOME INFORMATION MAY BE OMITTED. This clinical summary was aggregated from multiple sources. Caution should be exercised in using it in the provision of clinical care. This summary normalizes information from multiple sources, and as a consequence, information in this document may materially change the coding, format and clinical context of patient data. In addition, data may be omitted in some cases. CLINICAL DECISIONS SHOULD BE BASED ON THE PRIMARY CLINICAL RECORDS. [facility] provides no warranty or guarantee of the accuracy or completeness of information in this document.
[2023-02-06 09:52] LABS: Absolute Lymphocyte Count 3.59 X10^3/uL (0.83-4.51); Absolute Neutrophil Count 4.9 X10^3/uL (2.0-7.7); Basophil# 0.05 X10^3/uL; Basophil% 0.6 % (0-1); Eosinophil# 0.15 X10^3/uL; Eosinophils% 1.7 % (0-5); Hematocrit 38.9 % (37-47); Hemoglobin 12.9 g/dL (12.0-15.0); Lymphocyte # 3.59 X10^3/ul (0.83-4.51); Lymphocyte % 39.5 % (19-41); Mean Corp Hgb Conc 33.2 g/dL (32-36); Mean Corpuscular Hgb 30.4 pg (27.0-32.0); Mean Corpuscular Volume 91.5 fL (81-99); Mean Platelet Vol. 10.6 fl (6.2-12.0); Monocyte# 0.38 X10^3/uL; Monocyte% 4.2 % (0-10); NRBC Flagged by Analyzer 0 % (0-5); Neutrophil # 4.89 X10^3/uL (2.7-7.7); Neutrophil % 53.8 % (47-70); Platelet Count 332 K/mm3 (150-450); RBC Distribution Width CV 12.6 % (11.6-14.6); RBC Distribution Width SD 41.5 fl (35.1-43.9); Red Blood Count 4.25 M/mm3 (4.2-5.4); White Blood Count 9.1 K/mm3 (4.4-11.0)
[2023-02-06 10:05] LABS: Vitamin D,25 Hydroxy 63.7 ng/mL
[2023-02-06 10:23] LABS: ALB/GLOB Ratio 0.9 RATIO (0.9-2.4); AST(SGOT) 13 U/L (15-37); Alanine Aminotransfer ALT/SGPT 12 U/L (13-56); Albumin, Serum 3.4 g/dL (3.2-5.0); Alkaline Phosphatase 41 U/L (45-117); Anion Gap 7 (5-15); BUN 8 mg/dL (7-18); BUN/Creat Ratio 11.1 RATIO (10-20); Calcium,Total 8.6 mg/dL (8.5-10.1); Chloride 107 mmol/L (98-107); Cholesterol 205 mg/dL (200); Creatinine, Serum 0.72 mg/dL (0.55-1.02); EST Glomerular Filtration Rate 95 mL/min (>60); Est Glom Filt Rate - Afr Amer 115 mL/min (>60); Globulin 3.6 g/dL (2.2-4.2); Glucose 94 mg/dL (74-106); High Density Lipoprotein 41 mg/dL; Potassium 3.7 mmol/L (3.5-5.1); Sodium Level 141 mmol/L (136-145); Triglycerides 112 mg/dL; Very Low Density Lipoprotein 22 mg/dL (5-40)
== END | disposition home or self-care (01) ==
LOC: MTLAB 07:19
PROVIDERS: PCP Family Medicine; Referring Provider Nurse Practitioner Family; Visit Provider Nurse Practitioner Family
DX: Z00.01 Encounter for general adult medical examination with abnormal findings (principal); E11.9 Type 2 diabetes mellitus without complications; E55.9 Vitamin D deficiency, unspecified; E78.5 Hyperlipidemia, unspecified
CPT/HCPCS: 36415; 80053; 80061; 82306; 85025

== ENCOUNTER → 2023-03-12 | Outpatient (CLI) | payer OTHER, SELFPAY | END | disposition home or self-care (01) | LOC: SL 13:35 | PROVIDERS: PCP Family Medicine; Referring Provider Nurse Practitioner Acute Care; Visit Provider Nurse Practitioner Acute Care | DX: G47.33 Obstructive sleep apnea (adult) (pediatric) (principal) | CPT/HCPCS: 95806 ==

== ENCOUNTER → 2023-11-09 | Outpatient (CLI) | payer OTHER, SELFPAY ==
[2023-11-09 12:13] LABS: Absolute Lymphocyte Count 3.55 X10^3/uL (0.83-4.51); Absolute Neutrophil Count 2.5 X10^3/uL (2.0-7.7); Basophil# 0.06 X10^3/uL; Basophil% 0.9 % (0-1); Eosinophil# 0.11 X10^3/uL; Eosinophils% 1.7 % (0-5); Hematocrit 37.9 % (37-47); Hemoglobin 12.8 g/dL (12.0-15.0); Lymphocyte # 3.55 X10^3/ul (0.83-4.51); Lymphocyte % 53.4 % (19-41); Mean Corp Hgb Conc 33.8 g/dL (32-36); Mean Corpuscular Hgb 30.4 pg (27.0-32.0); Mean Platelet Vol. 10.4 fl (6.2-12.0); Monocyte# 0.37 X10^3/uL; Monocyte% 5.6 % (0-10); NRBC Flagged by Analyzer 0 % (0-5); Neutrophil # 2.54 X10^3/uL (2.7-7.7); Neutrophil % 38.1 % (47-70); Platelet Count 283 K/mm3 (150-450); RBC Distribution Width CV 12.2 % (11.6-14.6); Red Blood Count 4.21 M/mm3 (4.2-5.4); White Blood Count 6.7 K/mm3 (4.4-11.0)
[2023-11-09 12:54] LABS: Vitamin D,25 Hydroxy 87.7 ng/mL
[2023-11-09 13:36] LABS: ALB/GLOB Ratio 1.1 RATIO (0.9-2.4); AST(SGOT) 10 U/L (15-37); Alanine Aminotransfer ALT/SGPT 14 U/L (13-56); Albumin, Serum 3.8 g/dL (3.2-5.0); Alkaline Phosphatase 41 U/L (45-117); Anion Gap 9 (5-15); BUN 12 mg/dL (7-18); BUN/Creat Ratio 13.4 RATIO (10-20); Calcium,Total 9.4 mg/dL (8.5-10.1); Chloride 107 mmol/L (98-107); Cholesterol 230 mg/dL (200); Creatinine, Serum 0.89 mg/dL (0.55-1.02); EST Glomerular Filtration Rate 74 mL/min (>60); Est Glom Filt Rate - Afr Amer 89 mL/min (>60); Globulin 3.5 g/dL (2.2-4.2); Glucose 96 mg/dL (74-106); High Density Lipoprotein 51 mg/dL; Protein, Total 7.3 g/dL (6.4-8.2); Sodium Level 141 mmol/L (136-145); Triglycerides 64 mg/dL; Very Low Density Lipoprotein 13 mg/dL (5-40)
[2023-11-09 13:50] LABS: Microalbumin,Random Urine 39.1 mg/L (NO RANGE EST.); Microalbumin:Creatinine Ratio 11.4 mg/g CRE (<30 mg/g CRE)
[2023-11-09 14:09] LABS: Hemoglobin A1c 4.7 % (3.8-5.6)
== END | disposition home or self-care (01) ==
LOC: BFHLAB 08:35
PROVIDERS: PCP Family Medicine; Referring Provider Family Medicine; Visit Provider Family Medicine
DX: Z00.00 Encounter for general adult medical examination without abnormal findings (principal); E11.9 Type 2 diabetes mellitus without complications; E55.9 Vitamin D deficiency, unspecified
CPT/HCPCS: 36415; 80053; 80061; 82043; 82306; 82570; 83036; 85025

== ENCOUNTER → 2023-11-20 | Outpatient (CLI) | payer OTHER, SELFPAY ==
--- NOTE | 2023-11-20 09:16 | BI_ITS ---
MAMMOGRAPHY - BILATERAL SCREENING REASON FOR EXAM: Female, 43 years old. Routine annual screening examination. PERTINENT HISTORY: Mother with breast cancer. Grandmother with breast cancer. TECHNIQUE: Digital bilateral breast jasmyne (3D mammographic acquisition) in the CC and MLO projections. 2-D mediolateral oblique (MLO) and craniocaudad (CC) views of both breasts were obtained. CAD: Full Field Digital Mammography with Computer Added Detection was performed. COMPARISON: Comparison is made with prior study November 14, 2022 and September 11, 2021. FINDINGS: Breast Composition: There are scattered areas of fibroglandular density. There are no dominant masses or suspicious calcifications. The previously seen nodular densities in the anterior central portion of the left breast have cleared. No other significant abnormalities are identified. There has been no significant change since the prior study. BI/SCRN MAMM (CAD)W/JASMYNE BILAT IMPRESSION: Stable bilateral screening mammogram. Yearly follow-up mammogram recommended. (A) ASSESSMENT CATEGORY: BIRADS Category 2: Benign. A letter regarding these results will be sent to the patient by the facility within 30 days. Approximately 10% of breast cancers are not detected by mammography. A normal mammogram should not delay biopsy of a clinically suspicious abnormality. [id number] Electronically Signed: Maximus Majano MD at 14:05 EDT ,
== END | disposition home or self-care (01) ==
PROVIDERS: PCP Family Medicine; Referring Provider Family Medicine; Visit Provider Family Medicine
DX: Z12.31 Encounter for screening mammogram for malignant neoplasm of breast (principal); Z80.3 Family history of malignant neoplasm of breast
CPT/HCPCS: 77063; 77067

== ENCOUNTER 2024-09-15 08:08 | Emergency (ER) | payer OTHER, SELFPAY ==
[2024-09-15 08:08] VITALS: BP 107/73; PULSE 87; RESP 14; TEMP 36.2; O2SAT 98; BMI 24.7
--- NOTE | 2024-09-15 08:15 | EDS_ITS ---
HPI HPI - GI History of Present Illness Chief Complaint: Abd Pain PFSH PFSH Medical History (Reviewed 04/07/23 @ 07:54 by Laurence Guerra MANAGED CARE DIRECTOR, MANAGED CARE DIRECTOR-C) Ankylosing hyperostosis Diabetes Environmental allergies Genetic testing of female IBS (irritable bowel syndrome) CHANDAN (obstructive sleep apnea) Home Medications ?Medication ?Instructions ?Recorded ?Last Taken ?Type ixekizumab 80 mg/mL subcutaneous 80 mg subcut Q4W 10/10 05/31 Unknown History auto-injector (Taltz Autoinjector) omeprazole 20 mg capsule,delayed 20 mg PO DAILY Unknown History release tirzepatide 10 mg/0.5 mL 10 mg subcut QWEEK 12/10/22 Unknown History subcutaneous pen injector (Mounjaro) celecoxib 200 mg capsule 200 mg PO DAILY RA 04/07/23 Unknown History Allergy/AdvReac Type Severity Reaction Status Date / Time amoxicillin (From Augmentin) AdvReac Mild Abd Verified 09/15/24 08:09 cramps/diarrhea clavulanic acid (From AdvReac Mild Abd Verified 09/15/24 08:09 Augmentin) cramps/diarrhea Family History (Reviewed 04/07/23 @ 07:54 by Laurence Guerra MANAGED CARE DIRECTOR, MANAGED CARE DIRECTOR-C) Father Hypertension Mother Cancer skin Breast cancer Grandfather Prostate cancer Grandmother Breast cancer Unknown Breast cancer Cousin Surgical History History of hysterectomy History of tonsillectomy Social History (Reviewed 04/07/23 @ 07:54 by Laurence Guerra MANAGED CARE DIRECTOR, MANAGED CARE DIRECTOR-C) Smoking Status: Former smoker Tobacco: How many years used: 15 how long ago did patient quit smokin, 0.5ppd second hand exposure: Yes alcohol intake: never substance use type: does not use caffeine: Yes what type of physical activity do you participate in: walking frequency: 3-4 times per week seatbelt use: always additional social history: -Darío 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 Physical Exam Const Vital Signs: 09/15/24 08:08 Temperature 97.1 F L Temperature Source Temporal Pulse Rate 87 Respiratory Rate 14 Blood Pressure 107/73 Blood Pressure Mean 84 Pulse Ox 98 Oxygen Delivery Method Room Air Discharge Plan Triage Chief Complaint: Abd Pain ED Provider: Provider,Ed Physician Dx/Rx/DC Orders Prescriptions: No Action Taltz Autoinjector 80 mg/mL auto-injector 80 mg subcut Q4W omeprazole 20 mg capsule,delayed release(DR/EC) 20 mg PO DAILY Mounjaro 10 mg/0.5 mL pen injector 10 mg subcut QWEEK celecoxib 200 mg capsule 200 mg PO DAILY Primary Care Provider: Piter Andrew Referrals: Piter Andrew DO [Primary Care Provider] - Print Language: Serbian
--- NOTE | 2024-09-15 08:15 | ED.VIS.GI ---
HPI HPI - GI History of Present Illness Chief Complaint: Abd Pain Informant: patient Abdominal Pain/Flank Pain Onset: Today Context: Sudden Onset Timing: Waxes and wanes Quality: Sharp and Stabbing Location: RUQ and RLQ Worsened by: Nothing Relieved by: Nothing Nausea/Vomiting/Emesis GI Symptom: Positive for Nausea and Vomiting Quality: Positive for Nonbilious; Negative for Blood streaks, Coffee ground or Hematemesis Diarrhea/Melena/Hematochezia GI Symptom: Negative for Diarrhea, Melena or Hematochezia Associated Symptoms Associated Symptoms: Negative for Dysuria, Frequency or Hematuria Narrative Narrative: Patient presents with abdominal pain that began this morning. Patient states she woke up with pain in her right side of her abdomen. Patient describes it as sharp and stabbing. Patient states it started over the right mid abdomen and right upper quadrant. Patient states it feels like it started to radiate into the right lower abdomen. Patient admits to some nausea and vomiting. Patient denies any hematemesis or coffee-ground emesis. Patient does admit to a decreased appetite. Patient denies any diarrhea, melena, hematochezia. Patient denies any dysuria, frequency, or hematuria. Patient denies any fevers or chills. 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 IBS (irritable bowel syndrome) Environmental allergies Diabetes CHANDAN (obstructive sleep apnea) Ankylosing hyperostosis Home Medications ?Medication ?Instructions ?Recorded ?Last Taken ?Type ixekizumab 80 mg/mL subcutaneous 80 mg subcut Q4W 10/23/21 Unknown History auto-injector (Taltz Autoinjector) omeprazole 20 mg capsule,delayed 20 mg PO DAILY 10/23/21 Unknown History release tirzepatide 10 mg/0.5 mL 10 mg subcut QWEEK 12/10/22 Unknown History subcutaneous pen injector (Roselyn) celecoxib 200 mg capsule 200 mg PO DAILY RA 04/07/23 Unknown History ondansetron 4 mg disintegrating 4 mg PO Q8H PRN PRN Nausea #10 tabs 09/15/24 Unknown Rx tablet Allergy/AdvReac Type Severity Reaction Status Date / Time amoxicillin (From Augmentin) AdvReac Mild Abd Verified 09/15/24 08:09 cramps/diarrhea clavulanic acid (From AdvReac Mild Abd Verified 09/15/24 08:09 Augmentin) cramps/diarrhea Family History Father Hypertension Mother Cancer skin Breast cancer Grandfather Prostate cancer Grandmother Breast cancer Unknown Breast cancer Cousin Surgical History History of tonsillectomy History of hysterectomy Social History Smoking Status: Former smoker Tobacco: How many years used: 15 how long ago did patient quit smokin, 0.5ppd second hand exposure: Yes alcohol intake: never substance use type: does not use caffeine: Yes what type of physical activity do you participate in: walking frequency: 3-4 times per week seatbelt use: always additional social history: -Darío Patient works at [employer] [facility] ED Constitutional Constitutional ED: Denies chills or fever(s) Eyes Eyes: Denies blurry vision or change in vision ENT ENT ED: Denies rhinorrhea or sore throat Cardiovascular Cardiovascular: Denies chest pain or palpitations Respiratory/Chest Respiratory/Chest: Denies cough or dyspnea Gastrointestinal Gastrointestinal: Reports abdominal pain, nausea and vomiting; Denies diarrhea or melena Genitourinary Genitourinary ED: Denies dysuria or hematuria Musculoskeletal Musculoskeletal: Denies back pain or neck pain Integumentary Denies abscess or rash Neurologic Neurologic: Denies headache(s) or weakness Allergic/Immunologic Allergic/Immunologic ED: Denies mouth swelling or urticaria EXAM Physical Exam Const Vital Signs: 09/15/24 08:08 Temperature 97.1 F L Temperature Source Temporal Pulse Rate 87 Respiratory Rate 14 Blood Pressure 107/73 Blood Pressure Mean 84 Pulse Ox 98 Oxygen Delivery Method Room Air Positive well nourished and well developed Constitutional Narrative: BMI is 24.7. General Appearance ED: well developed and NAD HEENT Reports moist mucous membranes Neck supple and no JVD Resp normal respiratory effort and clear to auscultation bilaterally Cardio regular rate and regular rhythm GI non-distended Palpation: soft and tender RLQ, RUQ and Mcdonald's sign; Negative for guarding or rebound tenderness present Extremity General Extremety ED: Negative for edema or tenderness General Extremity: Negative for edema Neuro CN's II-XII intact bilaterally, moves all extremities and no sensory deficits noted Sensorium / Orientation: alert Motor Exam: strength 5/5 throughout Psych mental status grossly normal MDM MDM MDM Narrative Medical decision making narrative: Differential diagnosis includes cholecystitis, cholelithiasis, appendicitis, pyelonephritis, bowel obstruction, perforation, pancreatitis, and gastroenteritis. CBC will be obtained to assess for leukocytosis and anemia. Comprehensive metabolic profile will be obtained to assess for electrolyte abnormality, hepatic function, and renal function. Lipase will be obtained to assess for pancreatitis. Urinalysis will be obtained to assess for urinary tract infection and hematuria. CT scan of the abdomen pelvis will be obtained to assess for cholecystitis, cholelithiasis, appendicitis, bowel obstruction, perforation. Lab Data Attestation: I reviewed the patient's lab results. Lab results narrative: CBC was reviewed and was within normal limits. Comprehensive metabolic profile was reviewed and was within normal limits. Lipase was reviewed and was normal at 57. Urinalysis was reviewed. There is no evidence of urinary tract infection or hematuria. Labs: Laboratory Results - last 24 hr 09/15/24 09/15/24 08:40 09:35 WBC 7.4 RBC 4.24 Hgb 13.1 Hct 37.5 MCV 88.4 MCH 30.9 MCHC 34.9 RDW Std Deviation 38.5 RDW Coeff of Mateo 11.9 Plt Count 277 MPV 9.8 Immature Gran % (Auto) 0.300 Neut % (Auto) 61.7 Lymph % (Auto) 31.4 [place] % (Auto) 5.1 Eos % (Auto) 1.1 Baso % (Auto) 0.4 Absolute Neuts (auto) 4.6 Absolute Lymphs (auto) 2.33 Nucleated RBC % 0 Sodium 140 Potassium 3.9 Chloride 103 Carbon Dioxide 26.8 Anion Gap 10 BUN 14 Creatinine 0.87 Estim Creat Clear Calc 72.74 Est GFR (MDRD) Non-Af 85 BUN/Creatinine Ratio 16.4 Glucose 99 Calcium 9.5 Total Bilirubin 0.39 AST 12 ALT 8 Alkaline Phosphatase 46 Total Protein 7.2 Albumin 4.3 Globulin 2.8 Albumin/Globulin Ratio 1.5 Lipase 57 Urine Color Yellow Urine Clarity Clear Urine pH 8.0 Ur Specific [facility] 1.010 Urine Protein Negative Urine Glucose (UA) Normal Urine Ketones Negative Urine Occult Blood Negative Urine Nitrite Negative Urine Bilirubin Negative Urine Urobilinogen Normal Ur Leukocyte Esterase Negative Urine RBC 0 SEEN Urine WBC 0 SEEN Ur Squamous Epith Cells 0-5 SEEN Urine Bacteria 0 SEEN Urine Mucus 0 SEEN Radiography Diagnostic Testing: Clinical Impression(s) from Imaging Studies Abdomen/Pelvis CT 09/15/24 08:58 IMPRESSION: Small bilateral ovarian follicles. Reading Location: [id number] CT scan of the abdomen pelvis was obtained. There are small bilateral ovarian follicles. There is no evidence of appendicitis. There is no evidence of cholecystitis or cholelithiasis. There is no ureteral calculus noted. There is no evidence of pancreatitis. This was interpreted by the radiologist and was also independently reviewed by myself. Treatment and Re-Evaluation :: Patient was given IV fluids, morphine, and Zofran. Patient was feeling better on reevaluation. Patient was advised of her findings. Patient was advised that this could be a viral gastroenteritis or inflammatory bowel disease. Patient was instructed to follow-up with her primary care physician in 5 to 7 days. Patient was given a prescription for Zofran to take as needed for nausea. Patient was instructed to return if worse in any way. Patient understood and was agreeable with plan. All questions were answered. Discharge Plan Triage Chief Complaint: Abd Pain ED Provider: Kam Frey Dx/Rx/DC Orders Clinical Impression: Abdominal pain, Nausea and vomiting Instructions: ED Abdominal Pain Unkn Cause Fem Prescriptions: New ondansetron 4 mg tablet,disintegrating 4 mg PO Q8H PRN PRN (Reason: Nausea) Qty: 10 0RF No Action Taltz Autoinjector 80 mg/mL auto-injector 80 mg subcut Q4W omeprazole 20 mg capsule,delayed release(DR/EC) 20 mg PO DAILY Mounjaro 10 mg/0.5 mL pen injector 10 mg subcut QWEEK celecoxib 200 mg capsule 200 mg PO DAILY Primary Care Provider: Piter Andrew Referrals: Piter Andrew DO [Primary Care Provider] - 5-7 Days Print Language: Cameroonian Disposition Disposition: Home, Self Care
--- NOTE | 2024-09-15 08:58 | CT_ITS ---
PROCEDURE: ABDOMEN/PELVIS W IV CONT ONLY 09/15/2024 REASON FOR EXAM: ABDOMINAL PAIN Nausea and vomiting. TECHNIQUE: ABDOMEN/PELVIS W IV CONT ONLY Coronal and Sagittal reconstruction series were provided. CONTRAST: Isovue 370 VOLUME: 100 mL One or more dose reduction techniques were used (e.g., Automated exposure control, adjustment of the mA and/or kV according to patient size, use of iterative reconstruction technique. RADIATION DOSE SUMMARY: CTDlvol: 11 mGy DLP: 616.94 mGycm COMPARISON: None FINDINGS: Lung bases: Lung bases are clear. No coronary artery calcification is seen. Liver: Normal size. No mass. Gallbladder: Unremarkable Spleen: Normal size. Pancreas: Normal size without evidence of mass surrounding inflammation or ductal dilation. Adrenals: Unremarkable Kidneys: Normal renal sizes. No hydronephrosis. Bladder: Unremarkable Reproductive Organs: Small bilateral ovarian follicles. Bowel: Nonspecific bowel gas pattern. Scattered sigmoid diverticula. Appendix: Unremarkable Lymph nodes: Unremarkable. Vasculature: The abdominal aorta and IVC are normal. Peritoneum / Retroperitoneum: Unremarkable. Bones: Dextroscoliosis. CT/Abdomen/Pelvis W IV Cont ONLY IMPRESSION: Small bilateral ovarian follicles. Reading Location: [id number]
[2024-09-15] MEDS: 0.9% Normal Saline (1000mL) 1,000 ML 999 ML IV (09:07)
[2024-09-15 09:12] LABS: Hematocrit 37.5 % (37-47); Hemoglobin 13.1 g/dL (12.0-15.0); Immature Granulocytes Count 0.020 X10^3/uL (0.0-0.0); Mean Corp Hgb Conc 34.9 g/dL (32-36); Mean Corpuscular Volume 88.4 fL (81-99); Mean Platelet Vol. 9.8 fl (6.2-12.0); NRBC Flagged by Analyzer 0 % (0-5); Platelet Count 277 K/mm3 (150-450); RBC Distribution Width CV 11.9 % (11.6-14.6); RBC Distribution Width SD 38.5 fl (35.1-43.9); Red Blood Count 4.24 M/mm3 (4.2-5.4); White Blood Count 7.4 K/mm3 (4.4-11.0)
[2024-09-15 09:40] LABS: AST(SGOT) 12 U/L (<=31); Alanine Aminotransfer ALT/SGPT 8 U/L (<=34); Albumin, Serum 4.3 g/dL (3.5-5.0); Alkaline Phosphatase 46 U/L (35-104); Anion Gap 10 (5-15); BUN 14 mg/dL (4-19); BUN/Creat Ratio 16.4 RATIO (10-20); Calcium,Total 9.5 mg/dL (7.6-11.0); Carbon Dioxide 26.8 mmol/L (21.0-32.0); Chloride 103 mmol/L (98-108); Estimated Creatinine Clearance 72.74 ml/min (50-250); Globulin 2.8 g/dL (2.2-4.2); Glucose 99 mg/dL (70-99); Lipase 57 U/L (13-75); Potassium 3.9 mmol/L (3.3-5.1)
[2024-09-15 09:52] LABS: Mucous, Urine 0 SEEN /hpf (<or=2+); Red Blood Cells-Urine 0 SEEN /hpf (0-5)
[2024-09-15 10:08] LABS: Color, Urine Yellow (Yellow); Glucose, Dipstick Normal (Normal); Ketone-Dipstick Negative (Negative); Leukocyte Esterase-Dipstick Negative /ul (Negative); Nitrite-Dipstick Negative (Negative); Occult Blood-Urine Negative /ul (Negative); Protein-Dipstick Negative (Negative); Specific Gravity, Urine 1.010 (1.002-1.030); Urine Bilirubin Dipstick Negative (Negative)
[2024-09-15 10:15] LABS: Squamous Epithelial Cells - UA 0-5 SEEN /hpf (5-10)
--- OUTSIDE RECORDS SUMMARY | 2024-09-15 10:20 | XMS RPT_ITS | CCD ---
Author Organization [facility] Care Team Providers Care Antique Finisher Name Role Phone Tara Del Valle Unavailable Josafat Vargas Unavailable Royal Huddleston Unavailable Parquetry Layer, System Unavailable Unavailable Lindsay Vaca Unavailable Unavailable Vanessa Meraz Unavailable Unavailable Unavailable Unavailable Dr. Piter Andrew Primary Care Provider [phone] Dr. Piter Andrew Referring Provider Dr. Mandy Hess Attending Provider [phone] Dr. Piter Andrew Primary Care Provider [phone] Dr. Scar Turner Attending Provider Dr. Piter Andrew Primary Care Provider [phone] Dr. Scar Turner Attending Provider Dr. Piter Andrew Referring Provider BROCK Guerra NP Attending Provider [phone] Dr. Piter Andrew Primary Care Provider [phone] Piter Andrew Primary Care Unavailable Piter Andrew Referring Unavailable Laurence Guerra NP Attending Unavailable Piter Andrew Primary Care Unavailable Piter Andrew Referring Unavailable Donal ACUNA, Charline Attending Unavailable Christy London Attending Unavailable Piter Andrew Primary Care Unavailable Christy London Referring Unavailable Piter Andrew Primary Care Unavailable Piter Andrew Referring Unavailable Piter Andrew Attending Unavailable Piter Andrew Primary Care Unavailable Piter Andrew Referring Unavailable Piter Andrew Attending Unavailable Piter Andrew Primary Care Unavailable Charlie ACID PURIFIERLaurence Referring Unavailable Charlie ACID PURIFIER, Laurence Attending Unavailable Allergies Allergy Classification Reported Allergen(s) Allergy Type Date of Onset Reaction(s) Facility (7 sources) Amoxicillin Drug Allergy 1 Abd cramps/diarrhea [facility] (7 sources) Clavulanate Drug Allergy 1 Abd cramps/diarrhea [facility] (1 source) Amoxicillin Drug Allergy 4 [facility] (1 source) Clavulanate Drug Allergy 4 [facility] Medications Current Medications Medication Drug Class(es) Dates Sig (Normalized) Sig (Original) 1 ml ixekizumab 80 mg/ml auto-injector (4 sources) Interleukin-17A Antagonist Start: 10-23-2021 Ixekizumab (Taltz Autoinjector) 80 mg/mL auto-injector Active 80 MG SC every 4 weeks October 22, 2021 11:00pm omeprazole 20 mg delayed release oral capsule (4 sources) Proton Pump Inhibitor Start: 10-23-2021 take 20 mg by mouth once daily Omeprazole Active 20 MG PO DAILY October 22, 2021 11:00pm Tirzepatide (Mounjaro) 10 mg/0.5 mL pen injector (2 sources) Start: 12-10-2022 Tirzepatide (Mounjaro) 10 mg/0.5 mL pen injector Active 10 MG SC EVERY WEEK December 09, 2022 11:00pm Completed/Discontinued Medications Medication Drug Class(es) Dates Sig (Normalized) Sig (Original) acetaminophen 325 mg / oxyCODONE hydrochloride 5 mg oral tablet (7 sources) Opioid Agonist Start: 12-02-2013 End: 12-27-2018 take 2 tablets by mouth every four hours as needed Oxycodone-Acetamin ophen Discontinued 2 TABLET PO EVERY 4 HOURS NEEDED December 01, 2013 11:00pm December 27, 2018 2:12pm 0.8 ml adalimumab 50 mg/ml prefilled syringe (12 sources) Tumor Necrosis Factor Jackelyn Start: 11-25-2013 End: 12-27-2018 Adalimumab Discontinued 40 MG SQ DIRECTED November 24, 2013 11:00pm December 27, 2018 2:15pm Start: 09-08-2013 HUMIRA, 40MG/0 .8ML (Subcutaneous Kit) 1 (one) Kit q 2 weeks for 0 days Quantity: 1 Kit Refills: 0 Ordered: 08-Sep-2013 Tara Del Valle DO, DO, Kathleen Start : 08-Sep-2013 Active Start: 09-08-2013 HUMIRA, 40MG/0 .8ML (Subcutaneous Kit) 1 (one) Kit q 2 weeks for 0 days Quantity: 1 Kit Refills: 0 Ordered: 08-Sep-2013 Tara Del Valle DO, DO, Kathleen Start : 08-Sep-2013 Active amoxicillin 875 mg / clavulanate 125 mg oral tablet (7 sources) Penicillin-class Antibacterial Start: 01-31-2018 End: 12-27-2018 take 875 mg by mouth every twelve hours Amoxicillin-Pot Clavulanate Discontinued 875 MG PO Q12H January 31, 2018 12:00am December 27, 2018 2:11pm cholecalciferol 1.25 mg oral capsule (5 sources) Vitamin D Start: 05-13-2012 take 1 capsule by mouth every week VITAMIN D3, 23148MGUE (Oral Capsule) 1 Capsule 2 xweek for 0 days Quantity: 8 {Capsule} Refills: 6 Ordered: 13-May-2012 Sarah Mireles RN Start : 13-May-2012 Active ibuprofen 800 mg oral tablet (12 sources) Nonsteroidal Anti-inflammatory Drug Start: 10-06-2011 End: 12-27-2018 take 800 mg by mouth three times daily as needed Ibuprofen Discontinued 800 MG PO 3 TIMES DAILY NEEDED December 01, 2013 11:00pm December 27, 2018 2:13pm lansoprazole 30 mg delayed release oral capsule (7 sources) Proton Pump Inhibitor Start: 12-27-2018 End: 10-23-2021 take 1 capsule by mouth once daily Lansoprazole (Prevacid) 30 mg capsule,delayed release(DR/EC) Discontinued 30 MG PO DAILY December 27, 2018 12:00am October 23, 2021 1:46pm meloxicam 15 mg oral tablet (4 sources) Nonsteroidal Anti-inflammatory Drug Start: 10-23-2021 End: 12-10-2022 take 15 mg by mouth once daily Meloxicam Discontinued 15 MG PO DAILY October 22, 2021 11:00pm December 10, 2022 8:51am metFORMIN hydrochloride 500 mg oral tablet (7 sources) Biguanide Start: 02-19-2022 End: 12-10-2022 take 500 mg by mouth twice daily Metformin Discontinued 500 MG PO TWICE A DAY February 19, 2022 7:37am December 10, 2022 8:50am Start: 10-23-2021 End: 02-19-2022 take 500 mg by mouth once daily Metformin Discontinued 500 MG PO DAILY October 22, 2021 11:00pm February 19, 2022 7:38am nabumetone 500 mg oral tablet (7 sources) Nonsteroidal Anti-inflammatory Drug Start: 12-27-2018 End: 10-23-2021 take 1500 mg by mouth once daily Nabumetone Discontinued 1500 MG PO DAILY December 27, 2018 12:00am October 23, 2021 1:46pm naproxen 500 mg delayed release oral tablet (5 sources) Nonsteroidal Anti-inflammatory Drug Start: 10-06-[address], 500MG (Oral Tablet Delayed Release) [address] prn for 30 days Refills: 0 Ordered: 06-Oct-2011 Sarah Mireles RN Start : 06-Oct-2011 Active 12 hr orphenadrine citrate 100 mg extended release oral tablet (7 sources) Muscle Relaxant Start: 12-12-2017 End: 12-27-2018 take 100 mg by mouth twice daily Orphenadrine Citrate Discontinued 100 MG PO TWICE A DAY December 11, 2017 11:00pm December 27, 2018 2:13pm phentermine hydrochloride 37.5 mg oral tablet (5 sources) Sympathomimetic Amine Anorectic Start: 06-25-2012 End: 11-08-2012 take 1 tablet by mouth once daily ADIPEX-P, 37.5MG (Oral Tablet) 1 Tablet qd for 0 days Quantity: 30 {Tablet} Refills: 0 Ordered: 08-Nov-2012 Sarah Mireles RN Start : 25-Jun-2012 End : 08-Nov-2012 Inactive Comments: thirty BMI 4/4 31.95 wt 192BMI 06/11/12 30.68 wt 184BMI 06/25/12 29.9 wt 180 Comment on above: thirty BMI 4/4 31.95 wt 192BMI 06/11/12 30.68 wt 184BMI 06/25/12 29.9 wt 180 /FOLIC ACID (Oral Tablet) (5 sources) /FOLIC ACID (Oral Tablet) qd Active promethazine hydrochloride 25 mg oral tablet (7 sources) Phenothiazine Start: 12-02-2013 End: 12-27-2018 take 25 mg by mouth every four hours as needed Promethazine Discontinued 25 MG PO EVERY 4 HOURS NEEDED December 01, 2013 11:00pm December 27, 2018 2:12pm 1 ml secukinumab 150 mg/ml prefilled syringe (7 sources) Interleukin-17A Antagonist Start: 12-27-2018 End: 10-23-2021 Secukinumab (Cosentyx) 150 mg/mL syringe Discontinued 150 MG SC MONTHLY December 27, 2018 12:00am October 23, 2021 1:47pm Semaglutide (3 sources) Start: 02-19-2022 End: 12-10-2022 Semaglutide (Ozempic) 1 mg/dose (4 mg/3 mL) pen injector Discontinued 1 MG SC EVERY WEEK February 19, 2022 12:00am December 10, 2022 8:51am Start: 02-19-2022 Semaglutide (O zempic) 1 mg/dose (4 mg/3 mL) pen injector Active 1 MG SC EVERY WEEK February 19, 2022 1:00am traZODone hydrochloride 50 mg oral tablet (7 sources) Serotonin Reuptake Inhibitor Start: 07-27-2018 End: 12-27-2018 take 50 mg by mouth at bedtime Trazodone Discontinued 50 MG PO AT BEDTIME July 26, 2018 11:00pm December 27, 2018 2:12pm Problems Active Problems Problem Classification Problem Date Documented Da te Episodic/Chronic Abdominal pain (9 sources) Generalized abdominal pain; Translations: [Abdominal pain, acute, generalized] Resolved: 05-13-2012 12-25-2014 Episodic Diabetes mellitus without complication (7 sources) Diabetes mellitus; Translations: [Type 2 diabetes mellitus without complications] 08-01-2019 Chronic Diabetes mellitus without complication (20 sources) Abnormal glucose tolerance test; Translations: [Hyperglycemia] 12-22-2014 Episodic Comment on above: new dx - educ diet a nd exericse - aviod and reverse the metabolic syndrome Diseases of white blood cells (10 sources) Leukocytosis; Translations: [Leukocytosis, unspecified type] 12-29-2014 Chronic Disorders of lipid metabolism (9 sources) Hypercholesterolemi a; Translations: [Hypercholesteremia ] 11-14-2014 Chronic Malaise and fatigue (15 sources) Fatigue; Translations: [FATIGUE] 10-30-2014 Episodic Nutritional deficiencies (10 sources) Vitamin D deficiency; Translations: [Vitamin d deficiency] 10-30-2014 Chronic Other acquired deformities (7 sources) Scoliosis deformity of spine; Translations: [Scoliosis, unspecified] 08-30-2019 Chronic Other aftercare (6 sources) Post-discharge follow-up; Translations: [Hospital discharge follow-up] 10-30-2014 Episodic Other non-traumatic joint disorders (7 sources) Joint pain; Translations: [Arthralgia] 10-30-2014 Episodic Comment on above: seeing Dr Benitez and no definitive dx yet-- working on it Other nutritional; endocrine; and metabolic disorders (20 sources) Obesity; Translations: [Obesity, unspecified] Chronic Other nutritional; endocrine; and metabolic disorders (5 sources) Obesity, unspecified; Translations: [Obesity (BMI 30-39.9)] 10-30-2014 Chronic Other nutritional; endocrine; and metabolic disorders (7 sources) Obese class I; Translations: [Obesity, unspecified] 12-27-2018 Chronic Other nutritional; endocrine; and metabolic disorders (2 sources) Obesity, unspecified; Translations: [Obesity, unspecified] 12-10-2022 Chronic Other nutritional; endocrine; and metabolic disorders (11 sources) Weight gain; Translations: [Weight Gain] 10-30-2014 Episodic Other screening for suspected conditions (not mental disorders or infectious disease) (19 sources) Blood chemistry abnormal; Translations: [Abnormal blood chemistry] Onset: 12-14-2023 11-14-2014 Episodic Comment on above: theo positive -- saw may and she thinks may be related to chrons and wants a scope with bx Other upper respiratory disease (5 sources) Allergic rhinitis, cause unspecified; Translations: [Allergic Rhinitis] 10-30-2014 Chronic Residual codes; unclassified (7 sources) Obstructive sleep apnea syndrome; Translations: [Obstructive sleep apnea (adult) (pediatric)] 08-01-2019 Chronic Residual codes; unclassified (3 sources) Obstructive sleep apnea (adult) (pediatric); Translations: [Obstructive sleep apnea (adult)(pediatric)] Onset: 03-17-2023 12-10-2022 Chronic Residual codes; unclassified (1 source) H/O: surgery; Translations: [Tonsillectomy] 10-30-2014 Episodic Comment on above: 2003 Residual codes; unclassified (7 sources) FH: Diabetes mellitus; Translations: [Family history of diabetes mellitus] 10-30-2014 Episodic Residual codes; unclassified (3 sources) Family history of diabetes mellitus Episodic Rheumatoid arthritis and related disease (14 sources) Rheumatoid arthritis; Translations: [Rheumatoid arthritis, unspecified] 12-27-2018 Chronic Spondylosis; intervertebral disc disorders; other back problems (7 sources) Disseminated idiopathic skeletal hyperostosis; Translations: [Ankylosing hyperostosis [[place]], site unspecified] 08-01-2019 Chronic Past or Other Problems Problem Classification Problem Date Documented Date Episodic/Chronic Nonmalignant breast conditions (6 sources) Cyst of breast; Translations: [Solitary cyst of left breast] 09-18-2021 Episodic Open wounds of head; neck; and trunk (7 sources) Labia - open wound; Translations: [Unspecified open wound of vagina and vulva, initial encounter] 08-02-2019 Episodic Other aftercare (1 source) Post-discharge follow-up; Translations: [Hospital discharge follow-up] 10-30-2014 Other bone disease and musculoskeletal deformities (20 sources) Segmental and somatic dysfunction; Translations: [Segmental and somatic dysfunction of lumbar region] 08-02-2019 Episodic Other lower respiratory disease (7 sources) Dyspnea; Translations: [Shortness of breath] 08-01-2019 Episodic Spondylosis; intervertebral disc disorders; other back problems (7 sources) Backache; Translations: [Dorsalgia, unspecified] 09-19-2019 Episodic Sprains and strains (7 sources) Chondrocostal joint sprain; Translations: [Sprain of ribs, initial encounter] 05-31-2020 Episodic Unclassified (20 sources) Unclassified (9 sources) Patient [...] Results Test Name Value Interpretation Reference Range Facility SCRN MAMM (CAD)W/JASMYNE BILATo n 11-20-2023 SCRN MAMM (CAD)W/JASMYNE BILAT [facility] Imaging Services [address] [place] [address] SCRN MAMM (CAD)W/JASMYNE BILAT MR#: [id number] Acct: [id number] Name: ELVIA ARZOLA Rep #: [id number] : 1980 F 43 From: Maximus vides MD PCP: Dr. Piter Andrew DO Status: REG [facility] Study: SCRN MAMM (CAD)W/JASMYNE BILAT Date of Exam: 11/09 03/04 Exam# [id number] Ordering Dr: Piter Andrew DO [id number] MAMMOGRAPHY - BILATERAL SCREENING REASON FOR EXAM: Female, 43 years old. Routine annual screening examination. PERTINENT HISTORY: Mother with breast cancer. Grandmother with breast cancer. TECHNIQUE: Digital bilateral breast jasmyne (3D mammographic acquisition) in the CC and MLO projections. 2-D mediolateral oblique (MLO) and craniocaudad (CC) views of both breasts were obtained. CAD: Full Field Digital Mammography with Computer Added Detection was performed. COMPARISON: Comparison is made with prior study November 14, 2022 and September 11, 2021. FINDINGS: Breast Composition: There are scattered areas of fibroglandular density. There are no dominant masses or suspicious calcifications. The previously seen nodular densities in the anterior central portion of the left breast have cleared. No other significant abnormalities are identified. There has been no significant change since the prior study. BI/SCRN MAMM (CAD)W/JASMYNE BILAT IMPRESSION: Stable bilateral screening mammogram. Yearly follow-up mammogram recommended. (A) ASSESSMENT CATEGORY: BIRADS Category 2: Benign. A letter regarding these results will be sent to the patient by the facility within 30 days. Approximately 10% of breast cancers are not detected by mammography. A normal mammogram should not delay biopsy of a clinically suspicious abnormality. [id number] Electronically Signed: Maximus Majano MD at 14:05 EDT Reading Location ID and State: [address] [place] [address] , Service support , CC: Dr. Piter Andrew, DO Property Technician: Signed Normal [facility] CBC W/Diff, Automatedon 09-3 0-2023 Absolute Lymph 3.55 X10 3/uL Normal 0.83-4.51 [facility] Comment on above: Performed By: #### L 500.4050, L500.4100, L100.0100, L501.9985, L502.0250, L506.1000 #### [facility] [address] [place], [place], [id number] Absolute Neut 2.5 X10 3/uL Normal 2.0-7.7 [facility] Comment on above: Performed By: #### L 500.4050, L500.4100, L100.0100, L501.9985, L502.0250, L506.1000 #### [facility] [address] [place], [place], [id number] (322) Basophils/100 WBC (Bld) 0.9 % Normal 0-1 [facility] Comment on above: Performed By: #### L 500.4050, L500.4100, L100.0100, L501.9985, L502.0250, L506.1000 #### [facility] [address] [place], [address] Eosinophils/100 WBC (Bld) 1.7 % Normal 0-5 [facility] Comment on above: Performed By: #### L 500.4050, L500.4100, L100.0100, L501.9985, L502.0250, L506.1000 #### [facility] [address] [place], [address] Erythrocyte distribution width (RBC) [Ratio] 12.2 % Normal 11.6-14.6 [facility] Comment on above: Performed By: #### L 500.4050, L500.4100, L100.0100, L501.9985, L502.0250, L506.1000 #### [facility] [address] [place], [address] Hematocrit (Bld) [Volume fraction] 37.9 % Normal 37-47 [facility] Comment on above: Performed By: #### L 500.4050, L500.4100, L100.0100, L501.9985, L502.0250, L506.1000 #### [facility] [address] [place], [address] Hemoglobin (Bld) [Mass/Vol] 12.8 g/dL Normal 12.0-15.0 [facility] Comment on above: Performed By: #### L 500.4050, L500.4100, L100.0100, L501.9985, L502.0250, L506.1000 #### [facility] [address] [place], [address] IG% 0.300 Normal 0.0-0.9 [facility] Comment on above: Result Comment: IG% - Immature Granulocytes (promyelocytes, myelocytes and metamyelocytes) > 1% indicates that a LEFT SHIFT is Present. Performed By: #### L 500.4050, L500.4100, L100.0100, L501.9985, L502.0250, L506.1000 #### [facility] [address] [place], [address] Lymphocytes/100 WBC (Bld) 53.4 % High 19-41 [facility] Comment on above: Performed By: #### L 500.4050, L500.4100, L100.0100, L501.9985, L502.0250, L506.1000 #### [facility] [address] [place], [address] MCH (RBC) [Entitic mass] 30.4 pg Normal 27.0-32.0 [facility] Comment on above: Performed By: #### L 500.4050, L500.4100, L100.0100, L501.9985, L502.0250, L506.1000 #### [facility] [address] [place], [address] MCHC (RBC) [Mass/Vol] 33.8 g/dL Normal 32-36 [facility] Comment on above: Performed By: #### L 500.4050, L500.4100, L100.0100, L501.9985, L502.0250, L506.1000 #### [facility] [address] [place], [address] MCV (RBC) [Entitic vol] 90.0 fL Normal 81-99 [facility] Comment on above: Performed By: #### L 500.4050, L500.4100, L100.0100, L501.9985, L502.0250, L506.1000 #### [facility] [address] [place], [address] Monocytes/100 WBC (Bld) 5.6 % Normal 0-10 [facility] Comment on above: Performed By: #### L 500.4050, L500.4100, L100.0100, L501.9985, L502.0250, L506.1000 #### [facility] [address], [address] Neutrophils/100 WBC (Bld) 38.1 % Low 47-70 [facility] Comment on above: Performed By: #### L 500.4050, L500.4100, L100.0100, L501.9985, L502.0250, L506.1000 #### [facility] [address] [place], [address] Nucleated RBC (Bld) [#/Vol] 0 10*3/uL Normal 0-5 [facility] Comment on above: Performed By: #### L 500.4050, L500.4100, L100.0100, L501.9985, L502.0250, L506.1000 #### [facility] [address] [place], [address] Platelet mean volume (Bld) [Entitic vol] 10.4 fL Normal 6.2-12.0 [facility] Comment on above: Performed By: #### L 500.4050, L500.4100, L100.0100, L501.9985, L502.0250, L506.1000 #### [facility] [address] [place], [address] Platelets (Bld) [#/Vol] 283 10*3/uL Normal 150-450 [facility] Comment on above: Performed By: #### L 500.4050, L500.4100, L100.0100, L501.9985, L502.0250, L506.1000 #### [facility] [address] [place], [address] RBC (Bld) [#/Vol] 4.21 10*6/uL Normal 4.2-5.4 [facility] Comment on above: Performed By: #### L 500.4050, L500.4100, L100.0100, L501.9985, L502.0250, L506.1000 #### [facility] [address] [place], [address] RDW SD 40.0 fl Normal 35.1-43.9 [facility] Comment on above: Performed By: #### L 500.4050, L500.4100, L100.0100, L501.9985, L502.0250, L506.1000 #### [facility] [address] [place], [address] WBC (Bld) [#/Vol] 6.7 10*3/uL Normal 4.4-11.0 [facility] Comment on above: Performed By: #### L 500.4050, L500.4100, L100.0100, L501.9985, L502.0250, L506.1000 #### [facility] [address] [place], [address] Comprehensive Metabolic Prof [facility] 11-09-2023 Albumin [Mass/Vol] 3.8 g/dL Normal 3.2-5.0 [facility] Comment on above: Performed By: #### L 500.4050, L500.4100, L100.0100, L501.9985, L502.0250, L506.1000 #### [facility] [address] [place], [address] Albumin/Globulin [Mass ratio] 1.1 {ratio} Normal 0.9-2.4 [facility] Comment on above: Performed By: #### L 500.4050, L500.4100, L100.0100, L501.9985, L502.0250, L506.1000 #### [facility] [address] [place], [address] ALK P 41 U/L Low 45-117 [facility] Comment on above: Performed By: #### L 500.4050, L500.4100, L100.0100, L501.9985, L502.0250, L506.1000 #### [facility] [address] [place], [address] ALT [Catalytic activity/Vol] 14 U/L Normal 13-56 [facility] Comment on above: Performed By: #### L 500.4050, L500.4100, L100.0100, L501.9985, L502.0250, L506.1000 #### [facility] [address] [place], [address] AST [Catalytic activity/Vol] 10 U/L Low 15-37 [facility] Comment on above: Performed By: #### L 500.4050, L500.4100, L100.0100, L501.9985, L502.0250, L506.1000 #### [facility] [address] [place], [address] Bilirubin [Mass/Vol] 0.40 mg/dL Normal 0.20-1.00 [facility] Comment on above: Result Comment: For patients on eltrombopag therapy, use of Dimension [place] TBIL is not recommended. Performed By: #### L 500.4050, L500.4100, L100.0100, L501.9985, L502.0250, L506.1000 #### [facility] [address] [place], [address] BUN/CRE 13.4 RATIO Normal 10-20 [facility] Comment on above: Performed By: #### L 500.4050, L500.4100, L100.0100, L501.9985, L502.0250, L506.1000 #### [facility] [address] [place], [address] CA,Total 9.4 mg/dL Normal 8.5-10.1 [facility] Comment on above: Performed By: #### L 500.4050, L500.4100, L100.0100, L501.9985, L502.0250, L506.1000 #### [facility] [address] [place], [address] Chloride [Moles/Vol] 107 mmol/L Normal 98-107 [facility] Comment on above: Performed By: #### L 500.4050, L500.4100, L100.0100, L501.9985, L502.0250, L506.1000 #### [facility] [address] [place], [address] CO2 [Moles/Vol] 25.0 mmol/L Normal 21.0-32.0 [facility] Comment on above: Performed By: #### L 500.4050, L500.4100, L100.0100, L501.9985, L502.0250, L506.1000 #### [facility] [address] [place], [address] Creatinine [Mass/Vol] 0.89 mg/dL Normal 0.55-1.02 [facility] Comment on above: Result Comment: The validity of the calculated GFR GFRAA in patients over 70 years has not been determined. Clinical correlation is essential. Performed By: #### L 500.4050, L500.4100, L100.0100, L501.9985, L502.0250, L506.1000 #### [facility] [address] [place], [address] EST GFR - AA 89 mL/min Normal >60 [facility] Comment on above: Result Comment: Afri can [place] GFR Calc Performed By: #### L 500.4050, L500.4100, L100.0100, L501.9985, L502.0250, L506.1000 #### [facility] [address] [place], [address] GAP 9 Normal 5-15 [facility] Comment on above: Performed By: #### L 500.4050, L500.4100, L100.0100, L501.9985, L502.0250, L506.1000 #### [facility] [address] [place], [address] GFR/1.73 sq M.predicted among non-blacks MDRD (S/P/Bld) [Vol rate/Area] 74 mL/min/{1.73_m2} Normal >60 [facility] Comment on above: Result Comment: Non- GFR Calc Performed By: #### L 500.4050, L500.4100, L100.0100, L501.9985, L502.0250, L506.1000 #### [facility] [address] [place], [address] Globulin (S) [Mass/Vol] 3.5 g/dL Normal 2.2-4.2 [facility] Comment on above: Performed By: #### L 500.4050, L500.4100, L100.0100, L501.9985, L502.0250, L506.1000 #### [facility] [address], [address] Glucose [Mass/Vol] 96 mg/dL Normal 74-106 [facility] Comment on above: Performed By: #### L 500.4050, L500.4100, L100.0100, L501.9985, L502.0250, L506.1000 #### [facility] [address] [place], [address] Potassium [Moles/Vol] 4.0 mmol/L Normal 3.5-5.1 [facility] Comment on above: Performed By: #### L 500.4050, L500.4100, L100.0100, L501.9985, L502.0250, L506.1000 #### [facility] [address] [facility] [place], [address] Sodium [Moles/Vol] 141 mmol/L Normal 136-145 [facility] Comment on above: Performed By: #### L 500.4050, L500.4100, L100.0100, L501.9985, L502.0250, L506.1000 #### [facility] [address] [place], [address] T PROT 7.3 g/dL Normal 6.4-8.2 [facility] Comment on above: Performed By: #### L 500.4050, L500.4100, L100.0100, L501.9985, L502.0250, L506.1000 #### [facility] [address] [place], [address] Urea nitrogen [Mass/Vol] 12 mg/dL Normal 7-18 [facility] Comment on above: Performed By: #### L 500.4050, L500.4100, L100.0100, L501.9985, L502.0250, L506.1000 #### [facility] [address], [address] Hemoglobin A1con 11-09-2023 HbA1c (Bld) [Mass fraction] 4.7 % Normal 3.8-5.6 [facility] Comment on above: Result Comment: Norm al < 5.7 % Prediabetic 5.7 - 6.4 % Diabetic >or= 6.5 % Please note range changes. Performed By: #### L 500.4050, L500.4100, L100.0100, L501.9985, L502.0250, L506.1000 #### [facility] [address] [place], [address] Lipid Profileon 11-09-2023 Cholesterol [Mass/Vol] 230 mg/dL High 200 [facility] Comment on above: Result Comment: <200 mg/dL Desirable 200-240 mg/dL Borderline >240 mg/dL High Risk Performed By: #### L 500.4050, L500.4100, L100.0100, L501.9985, L502.0250, L506.1000 #### [facility] [address] [place], [address] Cholesterol in HDL [Mass/Vol] 51 mg/dL Normal [facility] Comment on above: Result Comment: The drugs N-Acetylcysteine and Metamizole may falsely depress this assay. Reference Range HDL <40 mg/dL Low HDL Cholesterol HDL >or= 60 mg/dL High HDL Cholesterol Performed By: #### L 500.4050, L500.4100, L100.0100, L501.9985, L502.0250, L506.1000 #### [facility] [address] [place], [address] Cholesterol in LDL [Mass/Vol] 166 mg/dL High 0-130 [facility] Comment on above: Performed By: #### L 500.4050, L500.4100, L100.0100, L501.9985, L502.0250, L506.1000 #### [facility] [address] [place], [address] Cholesterol in VLDL [Mass/Vol] 13 mg/dL Normal 5-40 [facility] Comment on above: Performed By: #### L 500.4050, L500.4100, L100.0100, L501.9985, L502.0250, L506.1000 #### [facility] [address] [place], [address] Triglyceride [Mass/Vol] 64 mg/dL Normal [facility] Comment on above: Result Comment: The drugs N-Acetylcysteine and Metamizole may falsely depress this assay. Serum Triglycerides Reference Interval Normal <150 mg/dL Borderline high 150 - 199 mg/dL High 200 - 499 mg/dL Very High > or = 500 mg/dL Performed By: #### L 500.4050, L500.4100, L100.0100, L501.9985, L502.0250, L506.1000 #### [facility] [address] [place], [address] Microalb:Creat Ratio,Random URon 11-09-2023 Creatinine [Mass/Vol] 343.00 mg/dL Normal NO RAN GE EST. [facility] Comment on above: Performed By: #### L 500.4050, L500.4100, L100.0100, L501.9985, L502.0250, L506.1000 #### [facility] [address] [place], [address] MALB:CRE 11.4 mg/g CRE Normal <30 mg/g CRE [facility] Comment on above: Performed By: #### L 500.4050, L500.4100, L100.0100, L501.9985, L502.0250, L506.1000 #### [facility] [address] [place], [address] MICROALBUMIN,UR 39.1 mg/L Normal NO RANGE EST. [facility] Comment on above: Performed By: #### L 500.4050, L500.4100, L100.0100, L501.9985, L502.0250, L506.1000 #### [facility] [address] [place], [address] Vitamin D,25 Hydroxyon 11-08 Vitamin D 25-OH 87.7 ng/mL Normal [facility] Comment on above: Result Comment: Althea min D 25(OH) Status Range Deficiency <20 ng/mL (50nmol/L) Insufficiency 20 - 30 ng/mL (50 - 75 nmol/L) Sufficiency 30 - 100 ng/mL (75 - 250 nmol/L) Toxicity >100 ng/mL (>250 nmol/L) Performed By: #### L 500.4050, L500.4100, L100.0100, L501.9985, L502.0250, L506.1000 #### [facility] [address] [place], [address] Pulmonary Visit Reporton Pulmonary Visit Report [facility] [place] [address] [place] [address] OFFICE VISIT Date of Service: 04/07/23 MR#: [id number] Acct: [id number] Name: ELVIA ARZOLA Rep #: [id number] : 1980 Provider: BROCK Guerra Age/Sex: 42/F Location: [facility] [place] Status: Signed Assessment and Plan Assessment and Plan (1) Snoring: Status: Acute Plan: Recent polysomnogram indicates that the patient no longer has sleep apnea. She has lost a significant amount of weight, this is likely the reason that she no longer has obstructive sleep apnea. However, she continues to snore and is having some sinus issues. For this reason I am sending her to ENT for evaluation and treatment. She may follow-up in this office as needed. Orders: Referrals Ears, Nose and Throat R06.83 - Snoring Plan Details Goals Barriers: Goals Decrease inflammation Decrease spasm Improve ROm Decrease pain Barriers RA Scoliosis HPI Sleep study results Chief Complaint: Test results HPI Comments Details: This patient presents to the office today to discuss recent test results. She is ambulatory and currently on room air. She has not recently been seen in the ED or urgent care for any respiratory illness. She has not required any antibiotics or prednisone for any breathing problems. She reports that she continues to snore. She is feeling rested when she wakes up. She is not having apneic events waking her up, she is not gasping for air. She is not requiring naps. She is not nodding off to sleep unintentionally. She denies any difficulty with dry mouth or morning headaches. She denies any shortness of breath. She denies any cough, sputum production or hemoptysis. She denies any wheezing, chest tightness, chest pain or palpitations. She also denies any fever, chills or body aches. Test results personally reviewed with patient: Unattended sleep study completed on March 12, 2023. Overall AHI is 1.8 events per hour. Diagnosis: This study did not meet the criteria used to define the presence of sleep apnea. Intake Vital Signs 12/10/22 07:46 04/07/23 07:33 Height 5 ft 4 in 5 ft 4 in Weight: 154 lb 144 lb BMI 26.4 24.7 BP 104/71 109/75 Blood Pressure Location Lt brachial Lt brachial Position Sitting Sitting Respiration 18 18 Pulse 65 96 Pulse Source Monitor Monitor Temp 96.9 F L 97.3 F L Temperature Source Temporal Artery Temporal Artery Pulse Oximetry (%) 99 97 Oxygen Delivery Method room air room air Intake Visit Reasons: Sleep study results Chief Complaint: Right Rib Pain Dynamiter Required: No DME Vendor: [employer] Accompanied by: Self Is patient in pain?: No Allergies amoxicillin [From Augmentin] Adverse Reaction (Mild, Verified 04/07/23 07:47) Abd cramps/diarrhea clavulanic acid [From Augmentin] Adverse Reaction (Mild, Verified 04/07/23 07:47) Abd cramps/diarrhea Medications ixekizumab 80 mg/mL subcutaneous auto-injector (Taltz Autoinjector) 80 mg subcut Q4W 10/23/21 [History Confirmed 04/07/23] omeprazole 20 mg capsule,delayed release 20 mg PO DAILY 10/23/21 [History Confirmed 04/07/23] tirzepatide 10 mg/0.5 mL subcutaneous pen injector (Mounjaro) 10 mg subcut QWEEK 12/10/22 [History Confirmed 04/07/23] celecoxib 200 mg capsule 200 mg PO DAILY RA 04/07/23 [History Confirmed 04/07/23] PFSH Medical History Ankylosing hyperostosis Diabetes Environmental allergies Genetic testing of female IBS (irritable bowel syndrome) CHANDAN (obstructive sleep apnea) Surgical History History of hysterectomy History of tonsillectomy Family History Father Hypertension Mother Cancer skin Breast cancer Grandfather Prostate cancer Grandmother Breast cancer Unknown Breast cancer Cousin Social History Smoking Status: Former smoker Tobacco: How many years used: 15 how long ago did patient quit smokin, 0.5ppd second hand exposure: Yes alcohol intake: never substance use type: does not use caffeine: Yes what type of physical activity do you participate in: walking frequency: 3-4 times per week seatbelt use: always additional social history: -Darío 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 Normal [facility] Absolute lymphocyte countOrd ered By: Christy London on 02-06-2023 Lymphocytes Auto (Unsp spec) [#/Vol] 3.59 10*3/uL 0.83-4.51 [facility] Basophil percentageOrdered B y: Christy London on 02-06-2023 Basophils/100 WBC (Bld) 0.6 % 0-1 [facility] Bilirubin [Mass/Vol] 0.50 mg/dL 0.20-1.00 [facility] Comment on above: For patients on eltr ombopag therapy, use of Dimension [place] TBIL is not recommended. Chloride [Moles/Vol] 107 mmol/L 98-107 [facility] Cholesterol [Mass/Vol] 205 mg/dL <200 [facility] Comment on above: <200 mg/dL Desirable 200-240 mg/dL Borderline >240 mg/dL High Risk Eosinophils/100 WBC (Bld) 1.7 % 0-5 [facility] Glucose [Mass/Vol] 94 mg/dL 74-106 [facility] Neutrophils (Bld) [#/Vol] 4.9 10*3/uL 2.0-7.7 [facility] Neutrophils/100 WBC (Bld) 53.8 % 47-70 [facility] Potassium [Moles/Vol] 3.7 mmol/L 3.5-5.1 [facility] Protein [Mass/Vol] 7.0 g/dL 6.4-8.2 [facility] Sodium [Moles/Vol] 141 mmol/L 136-145 [facility] Triglyceride [Mass/Vol] 112 mg/dL <199 [facility] Comment on above: The drugs N-Acetylcy steine and Metamizole may falsely depress this assay.Serum Triglycerides Reference Interval Normal <150 mg/dL Borderline high 150 - 199 mg/dL High 200 - 499 mg/dL Very High > or = 500 mg/dL WBC (Bld) [#/Vol] 9.1 10*3/uL 4.4-11.0 [facility] Blood erythrocytes count (nu mber/volume)Ordered By: Christy London on 02-06-2023 RBC (Bld) [#/Vol] 4.25 10*6/uL 4.2-5.4 [facility] Blood hemoglobin measurement (mass/volume)Ordered By: Christy London on 02-06-2023 Hemoglobin (Bld) [Mass/Vol] 12.9 g/dL 12.0-15.0 [facility] Blood lymphocytes/100 leukoc ytesOrdered By: Christy London on 02-06-2023 Lymphocytes/100 WBC (Bld) 39.5 % 19-41 [facility] Blood monocytes/100 leukocyt esOrdered By: Christycindy London on 02-06-2023 Monocytes/100 WBC (Bld) 4.2 % 0-10 [facility] Blood platelet mean volumeOr dered By: Christy London on 02-06-2023 Platelet mean volume (Bld) [Entitic vol] 10.6 fL 6.2-12.0 [facility] CBC W/Diff, Automatedon - Absolute Lymph 3.59 X10 3/uL Normal 0.83-4.51 [facility] Comment on above: Performed By: #### L 500.4050, L500.4100, L100.0100, L506.1000 #### [facility] [address] [place], [address] Absolute Neut 4.9 X10 3/uL Normal 2.0-7.7 [facility] Comment on above: Performed By: #### L 500.4050, L500.4100, L100.0100, L506.1000 #### [facility] [address] [place], [address] Basophils/100 WBC (Bld) 0.6 % Normal 0-1 [facility] Comment on above: Performed By: #### L 500.4050, L500.4100, L100.0100, L506.1000 #### [facility] [address] [place], [address] Eosinophils/100 WBC (Bld) 1.7 % Normal 0-5 [facility] Comment on above: Performed By: #### L 500.4050, L500.4100, L100.0100, L506.1000 #### [facility] [address] [place], [address] Erythrocyte distribution width (RBC) [Ratio] 12.6 % Normal 11.6-14.6 [facility] Comment on above: Performed By: #### L 500.4050, L500.4100, L100.0100, L506.1000 #### [facility] [address] [place], [address] Hematocrit (Bld) [Volume fraction] 38.9 % Normal 37-47 [facility] Comment on above: Performed By: #### L 500.4050, L500.4100, L100.0100, L506.1000 #### [facility] [address] [place], [address] Hemoglobin (Bld) [Mass/Vol] 12.9 g/dL Normal 12.0-15.0 [facility] Comment on above: Performed By: #### L 500.4050, L500.4100, L100.0100, L506.1000 #### [facility] [address] [place], [address] IG% 0.200 Normal 0.0-0.9 [facility] Comment on above: Result Comment: IG% - Immature Granulocytes (promyelocytes, myelocytes and metamyelocytes) > 1% indicates that a LEFT SHIFT is Present. Performed By: #### L 500.4050, L500.4100, L100.0100, L506.1000 #### [facility] [address] [place], [address] Lymphocytes/100 WBC (Bld) 39.5 % Normal 19-41 [facility] Comment on above: Performed By: #### L 500.4050, L500.4100, L100.0100, L506.1000 #### [facility] [address] [place], [address] MCH (RBC) [Entitic mass] 30.4 pg Normal 27.0-32.0 [facility] Comment on above: Performed By: #### L 500.4050, L500.4100, L100.0100, L506.1000 #### [facility] [address] [place], [address] MCHC (RBC) [Mass/Vol] 33.2 g/dL Normal 32-36 [facility] Comment on above: Performed By: #### L 500.4050, L500.4100, L100.0100, L506.1000 #### [facility] [address] [place], [address] MCV (RBC) [Entitic vol] 91.5 fL Normal 81-99 [facility] Comment on above: Performed By: #### L 500.4050, L500.4100, L100.0100, L506.1000 #### [facility] [address] [place], [address] Monocytes/100 WBC (Bld) 4.2 % Normal 0-10 [facility] Comment on above: Performed By: #### L 500.4050, L500.4100, L100.0100, L506.1000 #### [facility] [address] [place], [address] Neutrophils/100 WBC (Bld) 53.8 % Normal 47-70 [facility] Comment on above: Performed By: #### L 500.4050, L500.4100, L100.0100, L506.1000 #### [facility] [address] [place], [address] Nucleated RBC (Bld) [#/Vol] 0 10*3/uL Normal 0-5 [facility] Comment on above: Performed By: #### L 500.4050, L500.4100, L100.0100, L506.1000 #### [facility] [address] [place], [address] Platelet mean volume (Bld) [Entitic vol] 10.6 fL Normal 6.2-12.0 [facility] Comment on above: Performed By: #### L 500.4050, L500.4100, L100.0100, L506.1000 #### [facility] [address] [place], [address] Platelets (Bld) [#/Vol] 332 10*3/uL Normal 150-450 [facility] Comment on above: Performed By: #### L 500.4050, L500.4100, L100.0100, L506.1000 #### [facility] [address] [place], [address] RBC (Bld) [#/Vol] 4.25 10*6/uL Normal 4.2-5.4 [facility] Comment on above: Performed By: #### L 500.4050, L500.4100, L100.0100, L506.1000 #### [facility] [address] [place], [address] RDW SD 41.5 fl Normal 35.1-43.9 [facility] Comment on above: Performed By: #### L 500.4050, L500.4100, L100.0100, L506.1000 #### [facility] [address] [place], [address] WBC (Bld) [#/Vol] 9.1 10*3/uL Normal 4.4-11.0 [facility] Comment on above: Performed By: #### L 500.4050, L500.4100, L100.0100, L506.1000 #### [facility] [address] [place], [address] Comprehensive Metabolic Prof vaon 02-06-2023 Albumin [Mass/Vol] 3.4 g/dL Normal 3.2-5.0 [facility] Comment on above: Performed By: #### L 500.4050, L500.4100, L100.0100, L506.1000 #### [facility] [address] [place], [address] Albumin/Globulin [Mass ratio] 0.9 {ratio} Normal 0.9-2.4 [facility] Comment on above: Performed By: #### L 500.4050, L500.4100, L100.0100, L506.1000 #### [facility] [address] [place], [address] ALK P 41 U/L Low 45-117 [facility] Comment on above: Performed By: #### L 500.4050, L500.4100, L100.0100, L506.1000 #### [facility] [address] [place], [address] ALT [Catalytic activity/Vol] 12 U/L Low 13-56 [facility] Comment on above: Performed By: #### L 500.4050, L500.4100, L100.0100, L506.1000 #### [facility] [address] [place], [address] AST [Catalytic activity/Vol] 13 U/L Low 15-37 [facility] Comment on above: Performed By: #### L 500.4050, L500.4100, L100.0100, L506.1000 #### [facility] [address] [place], [address] Bilirubin [Mass/Vol] 0.50 mg/dL Normal 0.20-1.00 [facility] Comment on above: Result Comment: For patients on eltrombopag therapy, use of Dimension Preston TBIL is not recommended. Performed By: #### L 500.4050, L500.4100, L100.0100, L506.1000 #### [facility] [address] [place], [address] BUN/CRE 11.1 RATIO Normal 10-20 [facility] Comment on above: Performed By: #### L 500.4050, L500.4100, L100.0100, L506.1000 #### [facility] [address] [place], [address] CA,Total 8.6 mg/dL Normal 8.5-10.1 [facility] Comment on above: Performed By: #### L 500.4050, L500.4100, L100.0100, L506.1000 #### [facility] [address] [place], [address] Chloride [Moles/Vol] 107 mmol/L Normal 98-107 [facility] Comment on above: Performed By: #### L 500.4050, L500.4100, L100.0100, L506.1000 #### [facility] [address] [place], [address] CO2 [Moles/Vol] 27.0 mmol/L Normal 21.0-32.0 [facility] Comment on above: Performed By: #### L 500.4050, L500.4100, L100.0100, L506.1000 #### [facility] [address] [place], [address] Creatinine [Mass/Vol] 0.72 mg/dL Normal 0.55-1.02 [facility] Comment on above: Result Comment: The validity of the calculated GFR GFRAA in patients over 70 years has not been determined. Clinical correlation is essential. Performed By: #### L 500.4050, L500.4100, L100.0100, L506.1000 #### [facility] [address] [place], [address] EST GFR - AA 115 mL/min Normal >60 [facility] Comment on above: Result Comment: Afri can [place] GFR Calc Performed By: #### L 500.4050, L500.4100, L100.0100, L506.1000 #### [facility] [address] [place], [address] GAP 7 Normal 5-15 [facility] Comment on above: Performed By: #### L 500.4050, L500.4100, L100.0100, L506.1000 #### [facility] [address] [place], [address] GFR/1.73 sq M.predicted among non-blacks MDRD (S/P/Bld) [Vol rate/Area] 95 mL/min/{1.73_m2} Normal >60 [facility] Comment on above: Result Comment: Non- GFR Calc Performed By: #### L 500.4050, L500.4100, L100.0100, L506.1000 #### [facility] [address] [place], [address] Globulin (S) [Mass/Vol] 3.6 g/dL Normal 2.2-4.2 [facility] Comment on above: Performed By: #### L 500.4050, L500.4100, L100.0100, L506.1000 #### [facility] [address] [place], [address] Glucose [Mass/Vol] 94 mg/dL Normal 74-106 [facility] Comment on above: Performed By: #### L 500.4050, L500.4100, L100.0100, L506.1000 #### [facility] [address] [place], [address] Potassium [Moles/Vol] 3.7 mmol/L Normal 3.5-5.1 [facility] Comment on above: Performed By: #### L 500.4050, L500.4100, L100.0100, L506.1000 #### [facility] [address] [place], [address] Sodium [Moles/Vol] 141 mmol/L Normal 136-145 [facility] Comment on above: Performed By: #### L 500.4050, L500.4100, L100.0100, L506.1000 #### [facility] [address] [place], [address] T PROT 7.0 g/dL Normal 6.4-8.2 [facility] Comment on above: Performed By: #### L 500.4050, L500.4100, L100.0100, L506.1000 #### [facility] [address] [place], [address] Urea nitrogen [Mass/Vol] 8 mg/dL Normal 7-18 [facility] Comment on above: Performed By: #### L 500.4050, L500.4100, L100.0100, L506.1000 #### [facility] [address] [place], [address] Determination of erythrocyte mean corpuscular volume (MCV)Ordered By: Christy London on 02-06-2023 MCV (RBC) [Entitic vol] 91.5 fL 81-99 [facility] Hematocrit Auto (Bld) [Volum e fraction]Ordered By: Christy London on 02-06-2023 Hematocrit (Bld) [Volume fraction] 38.9 % 37-47 [facility] - Chemistry and C hemistry - challengeOrdered By: Christy London on 02-06-2023 ALP [Catalytic activity/Vol] 41 U/L 45-117 [facility] ALT [Catalytic activity/Vol] 12 U/L 13-56 [facility] CO2 [Moles/Vol] 27.0 mmol/L 21.0-32.0 [facility] Globulin (S) [Mass/Vol] 3.6 g/dL 2.2-4.2 [facility] Urea nitrogen/Creatinine [Mass ratio] 11.1 mg/mg 10-20 [facility] - Hematology and Cell countsOrdered By: Christy London on 02-06-2023 Erythrocyte distribution width (RBC) [Entitic vol] 41.5 fL 35.1-43.9 [facility] Erythrocyte distribution width (RBC) [Ratio] 12.6 % 11.6-14.6 [facility] Immature granulocytes/100 WBC (Bld) 0.200 % 0.0-0.9 [facility] Comment on above: IG% - Immature Granu locytes (promyelocytes, myelocytes and metamyelocytes) > 1% indicates that a LEFT SHIFT is Present. MCH (RBC) [Entitic mass] 30.4 pg 27.0-32.0 [facility] Nucleated RBC/100 WBC (Bld) [Ratio] 0 % 0-5 [facility] Lipid Profileon 02-06-2023 Cholesterol [Mass/Vol] 205 mg/dL High 200 [facility] Comment on above: Result Comment: <200 mg/dL Desirable 200-240 mg/dL Borderline >240 mg/dL High Risk Performed By: #### L 500.4050, L500.4100, L100.0100, L506.1000 #### [facility] [address] [place], [address] Cholesterol in HDL [Mass/Vol] 41 mg/dL Normal [facility] Comment on above: Result Comment: The drugs N-Acetylcysteine and Metamizole may falsely depress this assay. Reference Range HDL <40 mg/dL Low HDL Cholesterol HDL >or= 60 mg/dL High HDL Cholesterol Performed By: #### L 500.4050, L500.4100, L100.0100, L506.1000 #### [facility] [facility] [address] [place], [address] Cholesterol in LDL [Mass/Vol] 142 mg/dL High 0-130 [facility] Comment on above: Performed By: #### L 500.4050, L500.4100, L100.0100, L506.1000 #### [facility] [address] [place], [address] Cholesterol in VLDL [Mass/Vol] 22 mg/dL Normal 5-40 [facility] Comment on above: Performed By: #### L 500.4050, L500.4100, L100.0100, L506.1000 #### [facility] [address] [place], [address] Triglyceride [Mass/Vol] 112 mg/dL Normal [facility] Comment on above: Result Comment: The drugs N-Acetylcysteine and Metamizole may falsely depress this assay. Serum Triglycerides Reference Interval Normal <150 mg/dL Borderline high 150 - 199 mg/dL High 200 - 499 mg/dL Very High > or = 500 mg/dL Performed By: #### L 500.4050, L500.4100, L100.0100, L506.1000 #### [facility] [address] [place], [address] MCHC Auto (RBC) [Mass/Vol]Or dered By: Christy London on 02-06-2023 MCHC (RBC) [Mass/Vol] 33.2 g/dL 32-36 [facility] No Panel InformationOrdered By: Christy London on 02-06-2023 Estimated GFR (MDRD) Amer 115 mL/min >60 [facility] Comment on above: GFR Calc Estimated GFR (MDRD) Non-Af Amer 95 mL/min >60 [facility] Comment on above: Non- GFR Calc Vitamin D 25-Hydroxy 63.7 ng/mL [facility] Comment on above: Vitamin D 25(OH) Sta tus Range Deficiency <20 ng/mL (50nmol/L) Insufficiency 20 - 30 ng/mL (50 - 75 nmol/L) Sufficiency 30 - 100 ng/mL (75 - 250 nmol/L) Toxicity >100 ng/mL (>250 nmol/L) Platelets bldOrdered By: Shan London on 02-06-2023 Platelets (Bld) [#/Vol] 332 10*3/uL 150-450 [facility] Serum or plasma albumin adelina urement (mass/volume)Ordered By: Christy London on 02-06-2023 Albumin [Mass/Vol] 3.4 g/dL 3.2-5.0 [facility] Serum or plasma albumin/glob ulin mass ratioOrdered By: Christy London on 02-06-2023 Albumin/Globulin [Mass ratio] 0.9 {ratio} 0.9-2.4 [facility] Serum or plasma calcium adelina urement (mass/volume)Ordered By: Christy London on 02-06-2023 Calcium [Mass/Vol] 8.6 mg/dL 8.5-10.1 [facility] Serum or plasma cholesterol in HDL measurement (mass/volume)Ordered By: Christy London on 02-06-2023 Cholesterol in HDL [Mass/Vol] 41 mg/dL >40 [facility] Comment on above: The drugs N-Acetylcy steine and Metamizole may falsely depress this assay. Reference Range HDL <40 mg/dL Low HDL Cholesterol HDL >or= 60 mg/dL High HDL Cholesterol Serum or plasma cholesterol in VLDL measurement (mass/volume)Ordered By: Chrisyt Lodnon on 02-06-2023 Cholesterol in VLDL [Mass/Vol] 22 mg/dL 5-40 [facility] Serum or plasma creatinine m easurement (mass/volume)Ordered By: Christy London on 02-06-2023 Creatinine [Mass/Vol] 0.72 mg/dL 0.55-1.02 [facility] Comment on above: The validity of the calculated GFR & GFRAA in patients over 70 years has not been determined. Clinical correlation is essential. Serum or plasma low density lipoprotein (LDL) cholesterol measurement (mass/volume)Ordered By: Christy London on 02-06-2023 Cholesterol in LDL [Mass/Vol] 142 mg/dL 0-130 [facility] Serum or plasma urea nitroge n measurement (mass/volume)Ordered By: Christy London on 02-06-2023 Urea nitrogen [Mass/Vol] 8 mg/dL 7-18 [facility] Thin prep Papanicolaou smear with manual screeningOrdered By: Christycindy London on 02-06-2023 Thin prep Papanicolaou smear with manual screening 13 U/L 15-37 [facility] Thin prep Papanicolaou smear with manual screening 7 5-15 [facility] Vitamin D,25 Hydroxyon 02-06 Vitamin D 25-OH 63.7 ng/mL Normal [facility] Comment on above: Result Comment: Althea min D 25(OH) Status Range Deficiency <20 ng/mL (50nmol/L) Insufficiency 20 - 30 ng/mL (50 - 75 nmol/L) Sufficiency 30 - 100 ng/mL (75 - 250 nmol/L) Toxicity >100 ng/mL (>250 nmol/L) Performed By: #### L 500.4050, L500.4100, L100.0100, L506.1000 #### [facility] [address] [place], [place], [id number] Absolute lymphocyte counton 10-09-2021 Lymphocytes Auto (Unsp spec) [#/Vol] 3.12 10*3/uL 0.83-4.51 [facility] Work Phone: Basophil percentageon 2021 Basophils/100 WBC (Bld) 0.6 % 0-1 [facility] Work Phone: Bilirubin [Mass/Vol] 0.40 mg/dL 0.20-1.00 [facility] Work Phone: Comment on above: For patients on eltr ombopag therapy, use of Dimension [place] TBIL is not recommended. Chloride [Moles/Vol] 102 mmol/L 98-107 [facility] Work Phone: Cholesterol [Mass/Vol] 243 mg/dL <200 [facility] Work Phone: Comment on above: <200 mg/dL Desirable 200-240 mg/dL Borderline >240 mg/dL High Risk Eosinophils/100 WBC (Bld) 2.7 % 0-5 [facility] Work Phone: Glucose [Mass/Vol] 227 mg/dL 74-106 [facility] Work Phone: Comment on above: Glucose result great er than or equal to 200 mg/dLsuggests DIABETES MELLITUS per A.D.A. criteria. Neutrophils (Bld) [#/Vol] 4.8 10*3/uL 2.0-7.7 [facility] Work Phone: Neutrophils/100 WBC (Bld) 55.4 % 47-70 [facility] Work Phone: Potassium [Moles/Vol] 4.0 mmol/L 3.5-5.1 [facility] Work Phone: Protein [Mass/Vol] 7.3 g/dL 6.4-8.2 [facility] Work Phone: Sodium [Moles/Vol] 136 mmol/L 136-145 [facility] Work Phone: Triglyceride [Mass/Vol] 230 mg/dL <199 [facility] Work Phone: Comment on above: The drugs N-Acetylcy steine and Metamizole may falsely depress this assay.Serum Triglycerides Reference Interval Normal <150 mg/dL Borderline high 150 - 199 mg/dL High 200 - 499 mg/dL Very High > or = 500 mg/dL WBC (Bld) [#/Vol] 8.7 10*3/uL 4.4-11.0 [facility] Work Phone: Blood erythrocytes count (nu mber/volume)on 10-09-2021 RBC (Bld) [#/Vol] 4.33 10*6/uL 4.2-5.4 [facility] Work Phone: Blood hemoglobin measurement (mass/volume)on 10-09-2021 Hemoglobin (Bld) [Mass/Vol] 13.5 g/dL 12.0-15.0 [facility] Work Phone: Blood lymphocytes/100 leukoc yteson 10-09-2021 Lymphocytes/100 WBC (Bld) 36.0 % 19-41 [facility] Work Phone: Blood monocytes/100 leukocyt eson 10-09-2021 Monocytes/100 WBC (Bld) 5.0 % 0-10 [facility] Work Phone: Blood platelet mean volumeon 10-09-2021 Platelet mean volume (Bld) [Entitic vol] 10.4 fL 6.2-12.0 [facility] Work Phone: Determination of erythrocyte mean corpuscular volume (MCV)on 10-09-2021 MCV (RBC) [Entitic vol] 90.3 fL 81-99 [facility] Work Phone: Hematocrit Auto (Bld) [Volum e fraction]on 10-09-2021 Hematocrit (Bld) [Volume fraction] 39.1 % 37-47 [facility] Work Phone: Laboratory - Chemistry and C hemistry - challengeon 10-09-2021 ALP [Catalytic activity/Vol] 51 U/L 45-117 [facility] Work Phone: ALT [Catalytic activity/Vol] 18 U/L 13-56 [facility] Work Phone: CO2 [Moles/Vol] 24.0 mmol/L 21.0-32.0 [facility] Work Phone: Globulin (S) [Mass/Vol] 3.9 g/dL 2.2-4.2 [facility] Work Phone: Urea nitrogen/Creatinine [Mass ratio] 17.5 mg/mg 10-20 [facility] Work Phone: Laboratory - Hematology and Cell countson 10-09-2021 Erythrocyte distribution width (RBC) [Entitic vol] 40.6 fL 35.1-43.9 [facility] Work Phone: Erythrocyte distribution width (RBC) [Ratio] 12.3 % 11.6-14.6 [facility] Work Phone: Immature granulocytes/100 WBC (Bld) 0.300 % 0.0-0.9 [facility] Work Phone: Comment on above: IG% - Immature Granu locytes (promyelocytes, myelocytes and metamyelocytes) > 1% indicates that a LEFT SHIFT is Present. MCH (RBC) [Entitic mass] 31.2 pg 27.0-32.0 [facility] Work Phone: Nucleated RBC/100 WBC (Bld) [Ratio] 0 % 0-5 [facility] Work Phone: MCHC Auto (RBC) [Mass/Vol]on 10-09-2021 MCHC (RBC) [Mass/Vol] 34.5 g/dL 32-36 [facility] Work Phone: No Panel Informationon 10-09 Estimated GFR (MDRD) Amer 102 mL/min >60 [facility] Work Phone: Comment on above: GFR Calc Estimated GFR (MDRD) Non-Af Amer 85 mL/min >60 [facility] Work Phone: Comment on above: Non- GFR Calc Insulin Level 19.9 mU/L 2.6-37.6 [facility] Work Phone: Thyroid Stimulating Hormone (TSH) 2.51 uIU/mL 0.358-3.74 [facility] Work Phone: Platelets bldon 10-09-2021 Platelets (Bld) [#/Vol] 296 10*3/uL 150-450 [facility] Work Phone: Serum or plasma albumin adelina urement (mass/volume)on 10-09-2021 Albumin [Mass/Vol] 3.4 g/dL 3.2-5.0 [facility] Work Phone: Serum or plasma albumin/glob ulin mass ratioon 10-09-2021 Albumin/Globulin [Mass ratio] 0.9 {ratio} 0.9-2.4 [facility] Work Phone: Serum or plasma calcium adelina urement (mass/volume)on 10-09-2021 Calcium [Mass/Vol] 8.8 mg/dL 8.5-10.1 [facility] Work Phone: Serum or plasma cholesterol in HDL measurement (mass/volume)on 10-09-2021 Cholesterol in HDL [Mass/Vol] 42 mg/dL >40 [facility] Work Phone: Comment on above: The drugs N-Acetylcy steine and Metamizole may falsely depress this assay. Reference Range HDL <40 mg/dL Low HDL Cholesterol HDL >or= 60 mg/dL High HDL Cholesterol Serum or plasma cholesterol in VLDL measurement (mass/volume)on 10-09-2021 Cholesterol in VLDL [Mass/Vol] 46 mg/dL 5-40 [facility] Work Phone: Serum or plasma creatinine m easurement (mass/volume)on 10-09-2021 Creatinine [Mass/Vol] 0.80 mg/dL 0.55-1.02 [facility] Work Phone: Comment on above: The validity of the calculated GFR & GFRAA in patients over 70 years has not been determined. Clinical correlation is essential. Serum or plasma low density lipoprotein (LDL) cholesterol measurement (mass/volume)on 10-09-2021 Cholesterol in LDL [Mass/Vol] 155 mg/dL 0-130 [facility] Work Phone: Serum or plasma urea nitroge n measurement (mass/volume)on 10-09-2021 Urea nitrogen [Mass/Vol] 14 mg/dL 7-18 [facility] Work Phone: Thin prep Papanicolaou smear with manual screeningon 10-09-2021 Thin prep Papanicolaou smear with manual screening 8 U/L 15-37 [facility] Work Phone: Thin prep Papanicolaou smear with manual screening 10 5-15 [facility] Work Phone: Whole blood hemoglobin A1c/t otal hemoglobin ratio (mass fraction)on 10-09-2021 HbA1c (Bld) [Mass fraction] 7.7 % 3.8-5.6 [facility] Work Phone: Comment on above: Normal < 5.7 % Predi abetic 5.7 - 6.4 % Diabetic >or= 6.5 % Please note range changes. NOVEL CORONAVIRUS NASOPHARYN GEAL - [facility] SPECIMEN ONLYon 11-09-2019 SARS-COV-2 NOT DETECTED Normal NOT DETECTED [facility] Comment on above: Order Comment: Viral transport media - Collection must be done while wearing N-95 mask, eye protection, gown and gloves. Please label ALL specimens as 2019-nCoV rule out and deliver by hand. This test was performed using real time PCR and has been approved for the qualitative detection of SARS-CoV-2 nucleic acid. The test has been authorized by the FDA under an emergency use authorization for use by authorized laboratories. Result Comment: Nega tive results do not preclude SARS-CoV-2 infection and should not be used as the sole basis for treatment or other patient management decisions. Optimum specimen types and timing for peak viral levels during infections caused by SARS-CoV-2 has not been determined. The possibility of a false negative result should especially be considered if the patient's recent exposures or clinical presentation suggest that SARS-CoV-2 infection is probable, and diagnostic tests for other causes of illness (e.g., other respiratory illness) are negative. Collection of a new specimen and re-testing may be necessary if the patient is critically ill or clinically deteriorating. Performed By: #### L [id number] #### [facility] (DEFAULT) [address] [place] [address] NOVEL CORONAVIRUS NASOPHARYN GEAL - [facility] SPECIMEN ONLYon 11-02-2019 SARS-COV-2 NOT DETECTED Normal NOT DETECTED [facility] Comment on above: Order Comment: Viral transport media - Collection must be done while wearing N-95 mask, eye protection, gown and gloves. Please label ALL specimens as 2019-nCoV rule out and deliver by hand. This test was performed using real time PCR and has been approved for the qualitative detection of SARS-CoV-2 nucleic acid. The test has been authorized by the FDA under an emergency use authorization for use by authorized laboratories. Result Comment: Nega tive results do not preclude SARS-CoV-2 infection and should not be used as the sole basis for treatment or other patient management decisions. Optimum specimen types and timing for peak viral levels during infections caused by SARS-CoV-2 has not been determined. The possibility of a false negative result should especially be considered if the patient's recent exposures or clinical presentation suggest that SARS-CoV-2 infection is probable, and diagnostic tests for other causes of illness (e.g., other respiratory illness) are negative. Collection of a new specimen and re-testing may be necessary if the patient is critically ill or clinically deteriorating. Performed By: #### L [id number] #### [facility] (DEFAULT) [address] [place] [address] NOVEL CORONAVIRUS NASOPHARYN GEAL - [facility] SPECIMEN ONLYon 10-26-2019 SARS-COV-2 NOT DETECTED Normal NOT DETECTED [facility] Comment on above: Order Comment: Viral transport media - Collection must be done while wearing N-95 mask, eye protection, gown and gloves. Please label ALL specimens as 2019-nCoV rule out and deliver by hand. This test was performed using real time PCR and has been approved for the qualitative detection of SARS-CoV-2 nucleic acid. The test has been authorized by the FDA under an emergency use authorization for use by authorized laboratories. Result Comment: Nega tive results do not preclude SARS-CoV-2 infection and should not be used as the sole basis for treatment or other patient management decisions. Optimum specimen types and timing for peak viral levels during infections caused by SARS-CoV-2 has not been determined. The possibility of a false negative result should especially be considered if the patient's recent exposures or clinical presentation suggest that SARS-CoV-2 infection is probable, and diagnostic tests for other causes of illness (e.g., other respiratory illness) are negative. Collection of a new specimen and re-testing may be necessary if the patient is critically ill or clinically deteriorating. Performed By: #### L [id number] #### [facility] (DEFAULT) [address] [address] [facility] , Office ([id number])Ordere d By: Vanessa Meraz on 09-08-2013 HbA1c (Bld) [Mass fraction] 6.3 % Normal 4.6 - 7.1 [facility] Work Phone: THEO (ANTINUCLEAR ANTIBODY) ( [id number])Ordered By: Behavioral Health Specialist on 05-05-2012 Nuclear Ab Ql (S) Positive Abnormal [facility] Work Phone: Comment on above: PATIENT NOT FASTINGP ERFORMED BY: CB [facility] [id number] Garcia RoadDublin [place] [id number] Nuclear Ab Ql (S) Positive Abnormal [facility]; [facility] Work Phone: Comment on above: PATIENT NOT FASTINGP ERFORMED BY: CB [facility] [id number] Garcia RoadDublin [place] [id number] C-REACTIVE PROTEIN ([id number])Or dered By: Behavioral Health Specialist on 05-05-2012 CRP [Mass/Vol] 6.9 mg/L Abnormal 0.0-4.9 [facility] Work Phone: Comment on above: PATIENT NOT FASTINGP ERFORMED BY: CB [facility] [id number] Garcia RoadDublin [place] [id number] CALCIFIDIOL (05856) VIT D 25 Ordered By: Behavioral Health Specialist on 05-05-2012 25-Hydroxyvitamin D2+25-Hydroxyvitamin D3 [Mass/Vol] 25.0 ng/mL Abnormal 30.0-100.0 [facility] Work Phone: Comment on above: Vitamin D deficiency has been defined by the [place] [facility] and an Endocrine Society practice guideline as alevel of serum 25-OH vitamin D less than 20 ng/mL (1,2).The Endocrine Society went on to further define vitamin Dinsufficiency as a level between 21 and 29 ng/mL (2).1. IOM ([place] of Medicine). 2010. Dietary reference intakes for calcium and D. [place]: The National Academies Press.2. Tony MF, Angelique ANDRE, Van SOSA, et al. Evaluation, treatment, and prevention of vitamin D deficiency: an Endocrine Society clinical practice guideline. JCEM. 2010; 96(7):1911-30. PATIENT NOT FASTINGP ERFORMED BY: CB [facility] [id number] [facility] [id number] CBC WITH MANUAL DIFF ([id number]) Ordered By: Behavioral Health Specialist on 05-05-2012 Basophils (Bld) [#/Vol] 0.0 {x10E3/uL} Normal 0.0-0.2 [facility] Work Phone: Comment on above: PATIENT NOT FASTINGP ERFORMED BY: [address] [id number] Information: [id number] Basophils (Bld) [#/Vol] 0.0 10*3/uL Normal 0.0-0.2 [facility]; [facility] Work Phone: Comment on above: PATIENT NOT FASTINGP ERFORMED BY: DODIE Amaya[address] [id number] Information: [id number] Basophils/100 WBC (Bld) 0 % Normal 0-3 [facility] Work Phone: Comment on above: PATIENT NOT FASTINGP ERFORMED BY: [address] [id number] Information: [id number] Eosinophils (Bld) [#/Vol] 0.1 {x10E3/uL} Normal 0.0-0.4 [facility] Work Phone: Comment on above: PATIENT NOT FASTINGP ERFORMED BY: [address] [id number] Information: [id number] Eosinophils (Bld) [#/Vol] 0.1 10*3/uL Normal 0.0-0.4 [facility]; [facility] Work Phone: Comment on above: PATIENT NOT FASTINGP ERFORMED BY: [place] [id number] [facility] [id number] Information: [id number] Eosinophils/100 WBC (Bld) 1 % Normal 0-7 [facility] Work Phone: Comment on above: PATIENT NOT FASTINGP ERFORMED BY: DODIE MurrellTeresa [place] [id number] [facility] [id number] Information: [id number] Erythrocyte distribution width (RBC) [Ratio] 13.0 % Normal 12.3-15.4 [facility] Work Phone: Comment on above: PATIENT NOT FASTINGP ERFORMED BY: [address] [id number] Information: [id number] Hematocrit (Bld) [Volume fraction] 41.8 % Normal 34.0-46.6 [facility] Work Phone: Comment on above: PATIENT NOT FASTINGP ERFORMED BY: DODIE Amaya Ms[address] [id number] Information: [id number] Hemoglobin (Bld) [Mass/Vol] 14.1 g/dL Normal 11.1-15.9 [facility] Work Phone: Comment on above: PATIENT NOT FASTINGP ERFORMED BY: [address] [id number] Information: [id number] Immature granulocytes (Bld) [#/Vol] 0.0 {x10E3/uL} Normal 0.0-0.1 [facility] Work Phone: Comment on above: PATIENT NOT FASTINGP ERFORMED BY: [address] [id number] Information: [id number] Immature granulocytes (Bld) [#/Vol] 0.0 10*3/uL Normal 0.0-0.1 [facility]; [facility] Work Phone: Comment on above: PATIENT NOT FASTINGP ERFORMED BY: LabTeresa [place] [id number] [facility] [id number] Information: [id number] Immature granulocytes/100 WBC (Bld) 0 % Normal 0-2 [facility] Work Phone: Comment on above: PATIENT NOT FASTINGP ERFORMED BY: DODIE Rubio6370 [facility] [id number] Information: [id number] Lymphocytes (Bld) [#/Vol] 4.1 {x10E3/uL} Normal 0.7-4.5 [facility] Work Phone: Comment on above: PATIENT NOT FASTINGP ERFORMED BY: DODIE Amaya Ohxjcy5660 [facility] [id number] Information: [id number] Lymphocytes (Bld) [#/Vol] 4.1 10*3/uL Normal 0.7-4.5 [facility]; [facility] Work Phone: Comment on above: PATIENT NOT FASTINGP ERFORMED BY: DODIE Amaya [id number] [id number] Information: [id number] Lymphocytes/100 WBC (Bld) 36 % Normal 14-46 [facility] Work Phone: Comment on above: PATIENT NOT FASTINGP ERFORMED BY: DODIE Amaya [id number] [facility] [id number] Information: [id number] MCH (RBC) [Entitic mass] 31.3 pg Normal 26.6-33.0 [facility] Work Phone: Comment on above: PATIENT NOT FASTINGP ERFORMED BY: DODIE LabNuvia [id number] [facility] [id number] Information: [id number] MCHC (RBC) [Mass/Vol] 33.7 g/dL Normal 31.5-35.7 [facility] Work Phone: Comment on above: PATIENT NOT FASTINGP ERFORMED BY: DODIE MurrellCo [id number] [facility] [id number] Information: [id number] MCV (RBC) [Entitic vol] 93 fL Normal 79-97 [facility] Work Phone: Comment on above: PATIENT NOT FASTINGP ERFORMED BY: DODIE Rubio6370 [facility] [id number] Information: [id number] Monocytes (Bld) [#/Vol] 0.5 {x10E3/uL} Normal 0.1-1.0 [facility] Work Phone: Comment on above: PATIENT NOT FASTINGP ERFORMED BY: DODIE LabCowanda RubioEqqegc4658 [facility] [id number] Information: [id number] Monocytes (Bld) [#/Vol] 0.5 10*3/uL Normal 0.1-1.0 [facility]; [facility] Work Phone: Comment on above: PATIENT NOT FASTINGP ERFORMED BY: DODIE Amaya Lwrpqg2557 [facility] [id number] Information: [id number] Monocytes/100 WBC (Bld) 5 % Normal 4-13 [facility] Work Phone: Comment on above: PATIENT NOT FASTINGP ERFORMED BY: DODIE Rubio6370 [facility] [id number] Information: [id number] Neutrophils (Bld) [#/Vol] 6.4 {x10E3/uL} Normal 1.8-7.8 [facility] Work Phone: Comment on above: PATIENT NOT FASTINGP ERFORMED BY: DODIE LabCo [id number] [facility] [id number] Information: [id number] Neutrophils (Bld) [#/Vol] 6.4 10*3/uL Normal 1.8-7.8 [facility]; [facility] Work Phone: Comment on above: PATIENT NOT FASTINGP ERFORMED BY: DODIE LabCo Wfnron5560 [facility] [id number] Information: [id number] Neutrophils/100 WBC (Bld) 58 % Normal 40-74 [facility] Work Phone: Comment on above: PATIENT NOT FASTINGP ERFORMED BY: DODIE Rubio[address] [facility] [id number] Information: [id number] Platelets (Bld) [#/Vol] 268 {x10E3/uL} Normal 140-415 [facility] Work Phone: Comment on above: PATIENT NOT FASTINGP ERFORMED BY: DODIE [address] [facility] [id number] Information: [id number] Platelets (Bld) [#/Vol] 268 10*3/uL Normal 140-415 [facility]; [facility] Work Phone: Comment on above: PATIENT NOT FASTINGP ERFORMED BY: DODIE Rubio6370 [facility] [id number] Information: [id number] RBC (Bld) [#/Vol] 4.51 {x10E6/uL} Normal 3.77-5.28 [facility] Work Phone: Comment on above: PATIENT NOT FASTINGP ERFORMED BY: DODIE Rubio6370 [facility] [id number] Information: [id number] RBC (Bld) [#/Vol] 4.51 10*6/uL Normal 3.77-5.28 [facility]; [facility] Work Phone: Comment on above: PATIENT NOT FASTINGP ERFORMED BY: DODIE LabCowanda ClarkFrvejk5623 [facility] [id number] Information: [id number] WBC (Bld) [#/Vol] 11.2 {x10E3/uL} Abnormal 4.0-10.5 [facility] Internal Medicine Work Phone: Comment on above: PATIENT NOT FASTINGP ERFORMED BY: DODIE [facility] [id number] [facility] [id number] Information: [id number] WBC (Bld) [#/Vol] 11.2 10*3/uL Abnormal 4.0-10.5 Compr ehensive Internal Medicine; [facility] Work Phone: Comment on above: PATIENT NOT FASTINGP ERFORMED BY: DODIE LabCowanda ClarkVlhrww1200 Garcia RoadDublin [place] [id number] Information: [id number] Folate ([id number])Ordered By: Sy stem Parquetry Layer on 05-05-2012 Folate [Mass/Vol] 14.0 ng/mL Normal Compreh ensive Internal Medicine Work Phone: Comment on above: A serum folate monroe ntration of less than 3.1 ng/mL isconsidered to represent clinical deficiency. PATIENT NOT FASTINGP ERFORMED BY: DODIE [facility] [id number] Garcia RoadDublin [place] [id number] METABOLIC PANEL, COMPREHENSI VE ([id number])Ordered By: Behavioral Health Specialist on 05-05-2012 Albumin [Mass/Vol] 4.2 g/dL Normal 3.5-5.5 [facility] Work Phone: Comment on above: PATIENT NOT FASTINGP ERFORMED BY: DODIE [facility] [id number] Garcia RoadDublin [place] [id number] Albumin/Globulin [Mass ratio] 1.7 {ratio} Normal 1.1-2.5 [facility] Work Phone: Comment on above: PATIENT NOT FASTINGP ERFORMED BY: CB [facility] [id number] Garcia RoadDublin [place] [id number] ALP [Catalytic activity/Vol] 52 [iU]/L Normal 25-150 [facility] Work Phone: Comment on above: PATIENT NOT FASTINGP ERFORMED BY: CB [facility] Mgavml1154 Garcia RoadDublin [place] [id number] ALP [Catalytic activity/Vol] 52 U/L Normal 25-150 [facility]; [facility] Work Phone: Comment on above: PATIENT NOT FASTINGP ERFORMED BY: CB [facility] Lbjftc0606 Garcia RoadDublin [place] [id number] ALT [Catalytic activity/Vol] 14 [iU]/L Normal 0-32 [facility] Work Phone: Comment on above: PATIENT NOT FASTINGP ERFORMED BY: DODIE LabJayson ClarkSfkbqj8754 Garcia RoadDublin [place] [id number] ALT [Catalytic activity/Vol] 14 U/L Normal 0-32 [facility]; [facility] Work Phone: Comment on above: PATIENT NOT FASTINGP ERFORMED BY: DODIE [facility] Esmkfu1249 Garcia RoadDublin [place] [id number] AST [Catalytic activity/Vol] 10 [iU]/L Normal 0-40 [facility] Work Phone: Comment on above: PATIENT NOT FASTINGP ERFORMED BY: DODIE [facility] [id number] [address] RoadDublin [place] [id number] AST [Catalytic activity/Vol] 10 U/L Normal 0-40 [facility]; [facility] Work Phone: Comment on above: PATIENT NOT FASTINGP ERFORMED BY: DODIE [facility] [id number] [address] RoadDublin [place] [id number] Bilirubin [Mass/Vol] 0.2 mg/dL Normal 0.0-1.2 [facility] Work Phone: Comment on above: PATIENT NOT FASTINGP ERFORMED BY: [facility] [id number] Garcia RoadDublin [place] [id number] Calcium [Mass/Vol] 10.2 mg/dL Normal 8.7-10.2 [facility] Internal Medicine Work Phone: Comment on above: PATIENT NOT FASTINGP ERFORMED BY: [facility] [id number] [address] RoadDublin [place] [id number] Chloride [Moles/Vol] 99 mmol/L Normal 97-108 Comp [facility]car[facility] hospitalensive Internal Medicine Work Phone: Comment on above: PATIENT NOT FASTINGP ERFORMED BY: CB [facility] Eyzjcc9310 [address] RoadDublin [place] [id number] CO2 [Moles/Vol] 23 mmol/L Normal 20-32 Comprehen sive Internal Medicine Work Phone: Comment on above: PATIENT NOT FASTINGP ERFORMED BY: CB [facility] [id number] [address] RoadDublin [place] [id number] Creatinine [Mass/Vol] 0.77 mg/dL Normal 0.57-1.00 [facility] Internal Medicine Work Phone: Comment on above: PATIENT NOT FASTINGP ERFORMED BY: CB [facility] Hoptdc0047 Garcia RoadDublin [place] [id number] GFR/1.73 sq M predicted among blacks CKD-EPI (S/P/Bld) [Vol rate/Area] 121 mL/min/1.73 Normal [facility] Work Phone: Comment on above: PATIENT NOT FASTINGP ERFORMED BY: CB [facility] Fryyfa4220 [address] RoadDublin [place] [id number] GFR/1.73 sq M predicted among non-blacks CKD-EPI (S/P/Bld) [Vol rate/Area] 105 mL/min/1.73 Normal [facility] Work Phone: Comment on above: PATIENT NOT FASTINGP ERFORMED BY: CB [facility] Liuiwh5585 [address] RoadDublin [place] [id number] Globulin (S) [Mass/Vol] 2.5 g/dL Normal 1.5-4.5 [facility] Internal Medicine Work Phone: Comment on above: PATIENT NOT FASTINGP ERFORMED BY: CB [facility] [id number] Garcia RoadDublin [place] [id number] Glucose [Mass/Vol] 200 mg/dL Abnormal 65-99 [facility] Internal Medicine Work Phone: Comment on above: PATIENT NOT FASTINGP ERFORMED BY: CB [facility] Dvoouy1049 [address] RoadDublin [place] [id number] Potassium [Moles/Vol] 3.8 mmol/L Normal 3.5-5.2 [facility] Internal Medicine Work Phone: Comment on above: PATIENT NOT FASTINGP ERFORMED BY: CB [facility] Qmfjoi7012 Garcia RoadDublin [place] [id number] Protein [Mass/Vol] 6.7 g/dL Normal 6.0-8.5 [facility] Internal Medicine Work Phone: Comment on above: PATIENT NOT FASTINGP ERFORMED BY: DODIE LabJayson ClarkIkzdrg8801 Garcia Roadblin [place] [id number] Sodium [Moles/Vol] 137 mmol/L Normal 134-144 [facility] Internal Medicine Work Phone: Comment on above: PATIENT NOT FASTINGP ERFORMED BY: DODIE [facility] [id number] [address] [facility] [id number] Urea nitrogen [Mass/Vol] 13 mg/dL Normal 6-20 [facility] Internal Medicine Work Phone: Comment on above: PATIENT NOT FASTINGP ERFORMED BY: DODIE Amaya Mmxbze0963 [facility] [id number] Urea nitrogen/Creatinine [Mass ratio] 17 mg/mg Normal 8-20 [facility] Internal Medicine Work Phone: Comment on above: PATIENT NOT FASTINGP ERFORMED BY: [facility] [id number] [address] [facility] [id number] SED RATE ERYTHROCYTE ([id number]) Ordered By: Behavioral Health Specialist on 05-05-2012 ESR (Bld) [Velocity] 5 mm/h Normal 0-32 [facility] Internal Medicine Work Phone: Comment on above: PATIENT NOT FASTINGP ERFORMED BY: [facility] [id number] [address] [facility] [id number] T3, FREE (TRIDOTHYRONINE) ([id number])Ordered By: Behavioral Health Specialist on 05-05-2012 Free T3 [Mass/Vol] 2.8 pg/mL Normal 2.0-4.4 [facility] Internal Medicine Work Phone: Comment on above: PATIENT NOT FASTINGP ERFORMED BY: DODIE [facility] Mcpizr0822 [address] [facility]bl[facility] [place] [id number] T4, FREE (THYROXINE) ([id number]) Ordered By: Behavioral Health Specialist on 05-05-2012 Free T4 [Mass/Vol] 1.09 ng/dL Normal 0.82-1.77 [facility]ertim[facility] Internal Medicine Work Phone: Comment on above: PATIENT NOT FASTINGP ERFORMED BY: [employer] [facility] [id number] [address] RoadDublin [place] [id number] TSH ([id number])Ordered By: Syste m Parquetry Layer on 05-05-2012 TSH Qn 1.480 {uIU/mL} Normal 0.450-4.500 Gerardo [facility] Internal Medicine Work Phone: Comment on above: PATIENT NOT FASTINGP ERFORMED BY: CB [facility] [id number] Garcia RoadDublin [place] [id number] VITAMIN B-12 (CYANOCOBALAMIN ) ([id number])Ordered By: Behavioral Health Specialist on 05-05-2012 Cobalamin (Vitamin B12) [Mass/Vol] 592 pg/mL Normal 211-946 [facility] Work Phone: Comment on above: PATIENT NOT FASTINGP ERFORMED BY: CB [facility] Ljromn7235 Garcia RoadETF.comblin [place] [id number] Vital Signs Date Time Vital Sign Value Performing Clinician Facility 12-10-2022 07:46-0400 Body height 162.[address] Piter Andrew Work Phone: [facility] 12-10-2022 07:46-0400 Body mass index (BMI) [Ratio] 26.4 kg/m2 Dr. Piter Andrew Work Phone: [facility] 12-10-2022 07:46-0400 Body temperature 96.9 [degF] Dr. Piter Andrew Work Phone: [facility] 12-10-2022 07:46-0400 Body weight 69.[address] Piter Andrew Work Phone: [facility] 12-10-2022 07:46-0400 Diastolic blood pressure 71 mm[Hg] Dr. Piter Andrew Work Phone: [facility] 12-10-2022 07:46-0400 Heart rate 65 /min Dr. Piter Andrew Work Phone: [facility] 12-10-2022 07:46-0400 Respiratory rate 18 /min Dr. Piter Andrew Work Phone: [facility] 12-10-2022 07:46-0400 SaO2% (BldA) [Mass fraction] 99 % Dr. Piter Andrew Work Phone: [facility] 12-10-2022 07:46-0400 Systolic blood pressure 104 mm[Hg] Dr. Piter Andrew Work Phone: [facility] 10-23-2021 14:40-0400 Body height 162.[address] Piter Andrew Work Phone: [facility] Work Phone: 10-23-2021 14:40-0400 Body mass index (BMI) [Ratio] 34.7 kg/m2 Dr. Piter Andrew Work Phone: [facility] Work Phone: 10-23-2021 14:40-0400 Body weight 91.[address] Piter Andrew Work Phone: [facility] Work Phone: 10-23-2021 14:40-0400 Diastolic blood pressure 71 mm[Hg] Dr. Piter Andrew Work Phone: [facility] Work Phone: 10-23-2021 14:40-0400 Systolic blood pressure 107 mm[Hg] Dr. Piter Andrew Work Phone: [facility] Work Phone: 10-30-2014 10:09-0400 BMI (Body Mass Index) 32.62 kg/m2 Vanessa Meraz RN [facility] Work Phone: 10-30-2014 10:09-0400 Body Temperature 97.6 [degF] Vanessa Meraz RN [facility] Work Phone: Comment on above: Method: Temporal 10-30-2014 10:09-0400 Body weight 88.91 kg Vanessa Meraz RN [facility] Work Phone: 10-30-2014 10:040 BP Diastolic 80 mm[Hg] Vanessa Meraz RN [facility] Work Phone: Comment on above: Patient Position: Sitting; Cuff Location : Left Arm; Cuff Size: Standard 10-30-2014 10:040 BP Systolic 126 mm[Hg] Vanessa Meraz RN [facility] Work Phone: Comment on above: Patient Position: Sitting; Cuff Location : Left Arm; Cuff Size: Standard 10-30-2014 10: BSA (Body Surface Area) 1.96 m2 Vanessa Meraz RN [facility] Work Phone: 10-30-2014 10: Height 165.1 cm Vanessa Meraz RN [facility] Work Phone: 10-30-2014 10:040 Pulse (Heart Rate) 72 /min Vansesa Meraz RN [facility] Work Phone: Comment on above: Pattern: Regular 10-30-2014 10:040 Pulse Oximetry 96 % Tara Del Valle [facility] Work Phone: Comment on above: Room air 10-30-2014 10:0400 Respiratory Rate 16 /min Vanessa Meraz RN [facility] Work Phone: Comment on above: Pattern: Unlabored 10-30-2014 10:0400 SaO2% (BldA) [Mass fraction] 96 % Vanessa Meraz RN [facility]; [facility] Work Phone: Comment on above: Room air 09-08-2013 08:24-0400 BMI (Body Mass Index) 33.5 kg/m2 Sarah Mireles RN [facility] Work Phone: 09-08-2013 08:24-0400 Body Temperature 97.4 [degF] Sarah Mireles RN Comprehens e Internal Medicine Work Phone: Comment on above: Method: Tympanic 09-08-2013 08:24-0400 Body weight 91.32 kg Sarah Mireles RN [facility] Work Phone: 09-08-2013 08:24-0400 BP Diastolic 68 mm[Hg] Sarah Mireles RN [facility] Work Phone: Comment on above: Patient Position: Sitting; Cuff Location : Left Arm; Cuff Size: Large 09-08-2013 08:24-0400 BP Systolic 122 mm[Hg] Sarah Mireles RN [facility] Work Phone: Comment on above: Patient Position: Sitting; Cuff Location : Left Arm; Cuff Size: Large 09-08-2013 08:24-0400 BSA (Body Surface Area) 1.98 m2 Sarah Mireles RN [facility] Work Phone: 09-08-2013 08:24-0400 Height 165.1 cm Sarah Mireles RN [facility] Work Phone: 09-08-2013 08:24-0400 Pulse (Heart Rate) 94 /min Sarah Mireles RN Comprehens ramon Internal Medicine Work Phone: Comment on above: Pattern: Regular 09-08-2013 08:24-0400 Pulse Oximetry 97 % Tara Del Valle [facility] Work Phone: Comment on above: Room air 09-08-2013 08:24-0400 Respiratory Rate 16 /min Sarah Mireles RN Comprehensiv e Internal Medicine Work Phone: Comment on above: Pattern: Unlabored 09-08-2013 08:24-0400 SaO2% (BldA) [Mass fraction] 97 % Sarah Mireles RN [facility]; [facility] Work Phone: Comment on above: Room air 08-18-2012 10:30-0400 BMI (Body Mass Index) 30.47 kg/m2 Sarah Mireles RN [facility] Work Phone: 08-18-2012 10:30-0400 Body Temperature 98.2 [degF] Sarah Mireles RN Comprehensiv e Internal Medicine Work Phone: Comment on above: Method: Oral 08-18-2012 10:30-0400 Body weight 83.07 kg Sarah Mireles RN [facility] Work Phone: 08-18-2012 10:30-0400 BP Diastolic 70 mm[Hg] Sarah Mireles RN [facility] Work Phone: Comment on above: Patient Position: Sitting; Cuff Location : Left Arm; Cuff Size: Large 08-18-2012 10:30-0400 BP Systolic 110 mm[Hg] Sarah Mireles RN [facility] Work Phone: Comment on above: Patient Position: Sitting; Cuff Location : Left Arm; Cuff Size: Large 08-18-2012 10:30-0400 BSA (Body Surface Area) 1.91 m2 Sarah Mireles RN [facility] Work Phone: 08-18-2012 10:30-0400 Height 165.1 cm Sarah Mireles RN [facility] Work Phone: 08-18-2012 10:30-0400 Pulse (Heart Rate) 60 /min Sarah Mireles RN Comprehens ramon Internal Medicine Work Phone: Comment on above: Pattern: Regular 08-18-2012 10:30-0400 Respiratory Rate 18 /min Sarah Mireles RN Comprehensiv e Internal Medicine Work Phone: Comment on above: Pattern: Unlabored 07-14-2012 08:34-0400 BMI (Body Mass Index) 30.04 kg/m2 Vanessa Meraz RN [facility] Work Phone: 07-14-2012 08:34-0400 Body Temperature 97.6 [degF] Vanessa Meraz RN [facility] Work Phone: Comment on above: Method: Temporal 07-14-2012 08:34-0400 Body weight 81.87 kg Vanessa Meraz RN [facility] Work Phone: 07-14-2012 08:34-0400 BP Diastolic 72 mm[Hg] Vanessa Meraz RN [facility] Work Phone: Comment on above: Patient Position: Sitting; Cuff Location : Left Arm; Cuff Size: Standard 07-14-2012 08:34-0400 BP Systolic 140 mm[Hg] Vanessa Meraz RN [facility] Work Phone: Comment on above: Patient Position: Sitting; Cuff Location : Left Arm; Cuff Size: Standard 07-14-2012 08:34-0400 BSA (Body Surface Area) 1.89 m2 Vanessa Meraz RN [facility] Work Phone: 07-14-2012 08:34-0400 Height 165.1 cm Vanessa Meraz RN [facility] Work Phone: 07-14-2012 08:34-0400 Pulse (Heart Rate) 107 /min Vanessa Meraz RN [facility] Work Phone: Comment on above: Pattern: Regular 07-14-2012 08:34-0400 Pulse Oximetry 98 % Tara Del Valle [facility] Work Phone: Comment on above: Room air 07-14-2012 08:34-0400 Respiratory Rate 16 /min Vanessa Meraz RN [facility] Work Phone: Comment on above: Pattern: Unlabored 07-14-2012 08:34-0400 SaO2% (BldA) [Mass fraction] 98 % Vanessa Meraz RN [facility]; [facility] Work Phone: Comment on above: Room air 06-25-2012 10:09-0400 BMI (Body Mass Index) 29.98 kg/m2 Sarah Mireles RN [facility] Work Phone: 06-25-2012 10:09-0400 Body Temperature 98.4 [degF] Sarah Mireles RN Comprehensiv e Internal Medicine Work Phone: Comment on above: Method: Oral 06-25-2012 10:090400 Body weight 81.73 kg Sarah Mireles RN [facility] Work Phone: 06-25-2012 10:09-0400 BP Diastolic 78 mm[Hg] Sarah Mireles RN [facility] Work Phone: Comment on above: Patient Position: Sitting; Cuff Location : Left Arm; Cuff Size: Large 06-25-2012 10:09-0400 BP Systolic 120 mm[Hg] Sarah Mireles RN [facility] Work Phone: Comment on above: Patient Position: Sitting; Cuff Location : Left Arm; Cuff Size: Large 06-25-2012 10:09-0400 BSA (Body Surface Area) 1.89 m2 Sarah Mireles RN [facility] Work Phone: 06-25-2012 10:09040 Height 165.1 cm Sarah Mireles RN [facility] Work Phone: 06-25-2012 10:09-0400 Pulse (Heart Rate) 64 /min Sarah Mireles RN Comprehens ramon Internal Medicine Work Phone: Comment on above: Pattern: Regular 06-25-2012 10:09-0400 Respiratory Rate 18 /min Sarah Mireles RN Comprehensiv e Internal Medicine Work Phone: Comment on above: Pattern: Unlabored 06-11-2012 08:38-0400 BMI (Body Mass Index) 30.68 kg/m2 Sarah Mireles RN [facility] Work Phone: 06-11-2012 08:38-0400 Body weight 83.63 kg Sarah Mireles RN [facility] Work Phone: 06-11-2012 08:38-0400 BP Diastolic 72 mm[Hg] Sarah Mireles RN [facility] Work Phone: Comment on above: Patient Position: Sitting; Cuff Location : Left Arm; Cuff Size: Large 06-11-2012 08:38-0400 BP Systolic 120 mm[Hg] Sarah Mireles RN [facility] Work Phone: Comment on above: Patient Position: Sitting; Cuff Location : Left Arm; Cuff Size: Large 06-11-2012 08:38-0400 BSA (Body Surface Area) 1.91 m2 Sarah Mireles RN [facility] Work Phone: 06-11-2012 08:38-0400 Height 165.1 cm Sarah Mireles RN [facility] Work Phone: 06-11-2012 08:38-0400 Pulse (Heart Rate) 64 /min Sarah Mireles RN Comprehens ramon Internal Medicine Work Phone: Comment on above: Pattern: Regular 06-11-2012 08:38-0400 Respiratory Rate 20 /min Sarah Mireles RN Comprehensiv e Internal Medicine Work Phone: Comment on above: Pattern: Unlabored 05-28-2012 10:11-0400 BMI (Body Mass Index) 30.83 kg/m2 Sarah Mireles RN [facility] Work Phone: 05-28-2012 10:11-0400 Body Temperature 98.3 [degF] Sarah Mireles RN Comprehensiv e Internal Medicine Work Phone: Comment on above: Method: Oral 05-28-2012 10:110400 Body weight 84.03 kg Sarah Mireles RN [facility] Work Phone: 05-28-2012 10:11-0400 BP Diastolic 72 mm[Hg] Sarah Mireles RN [facility] Work Phone: Comment on above: Patient Position: Sitting; Cuff Location : Left Arm; Cuff Size: Large 05-28-2012 10:11-0400 BP Systolic 120 mm[Hg] Sarah Mireles RN [facility] Work Phone: Comment on above: Patient Position: Sitting; Cuff Location : Left Arm; Cuff Size: Large 05-28-2012 10:11-0400 BSA (Body Surface Area) 1.91 m2 Sarah Mireles RN [facility] Work Phone: 05-28-2012 10:110400 Height 165.1 cm Sarah Mireles RN [facility] Work Phone: 05-28-2012 10:11-0400 Pulse (Heart Rate) 60 /min Sarah Mireles RN Comprehens ramon Internal Medicine Work Phone: Comment on above: Pattern: Regular 05-28-2012 10:110400 Respiratory Rate 20 /min Sarah Mireles RN Comprehensiv e Internal Medicine Work Phone: Comment on above: Pattern: Unlabored 05-13-2012 09:27-0400 BMI (Body Mass Index) 31.95 kg/m2 Jalyn Manmelvi [facility] Medicine Work Phone: 05-13-2012 09:27-0400 Body Temperature 98.4 [degF] Jalyn Trejomelvi [facility] Medicine Work Phone: Comment on above: Method: Oral 05-13-2012 09:270400 Body weight 87.09 kg Jalyn Trejomelvi [employer] [facility] Work Phone: 05-13-2012 09:27-0400 BP Diastolic 78 mm[Hg] Jalyn Diaz [facility] Internal Medicine Work Phone: Comment on above: Patient Position: Sitting; Cuff Location : Left Arm; Cuff Size: Standard 05-13-2012 09:27-0400 BP Systolic 116 mm[Hg] Jalyn Diaz [facility] Internal Medicine Work Phone: Comment on above: Patient Position: Sitting; Cuff Location : Left Arm; Cuff Size: Standard 05-13-2012 09:27-0400 BSA (Body Surface Area) 1.94 m2 Jalyn Diaz [facility] Internal Medicine Work Phone: 05-13-2012 09:27-0400 Height 165.1 cm Jalyn Diaz [facility] Internal Medicine Work Phone: 05-13-2012 09:27-0400 Pulse (Heart Rate) 78 /min Jalyn Diaz [facility] Internal Medicine Work Phone: Comment on above: Pattern: Regular 05-13-2012 09:27-0400 Respiratory Rate 16 /min Jalyn Diaz [facility] Internal Medicine Work Phone: Comment on above: Pattern: Unlabored 05-05-2012 10:11-0400 Body Temperature 98.3 [degF] Jalyn Diaz [facility] Internal Medicine Work Phone: Comment on above: Method: Oral 05-05-2012 10:110400 Body weight 87.09 kg Jalyn Diaz [facility] Internal Medicine Work Phone: 05-05-2012 10:11-0400 BP Diastolic 70 mm[Hg] Jalyn Diaz [facility] Internal Medicine Work Phone: Comment on above: Patient Position: Sitting; Cuff Location : Left Arm; Cuff Size: Standard 05-05-2012 10:11-0400 BP Systolic 118 mm[Hg] Jalyn Diaz [facility] Internal Medicine Work Phone: Comment on above: Patient Position: Sitting; Cuff Location : Left Arm; Cuff Size: Standard 05-05-2012 10:11-0400 Pulse (Heart Rate) 92 /min Jalyn Diaz ROBI [facility] Work Phone: Comment on above: Pattern: Regular 10-06-2011 11:52-0400 BMI (Body Mass Index) 31.52 kg/m2 Sarah Mireles RN [facility] Work Phone: 10-06-2011 11:52-0400 Body weight 85.93 kg Sarah Mireles RN [facility] Work Phone: 10-06-2011 11:52-0400 BP Diastolic 62 mm[Hg] Sarah Mireles RN [facility] Work Phone: Comment on above: Patient Position: Sitting; Cuff Location : Left Arm; Cuff Size: Large 10-06-2011 11:52-0400 BP Systolic 120 mm[Hg] Sarah Mireles RN [facility] Work Phone: Comment on above: Patient Position: Sitting; Cuff Location : Left Arm; Cuff Size: Large 10-06-2011 11:52-0400 BSA (Body Surface Area) 1.93 m2 Sarah Mireles RN [facility] Work Phone: 10-06-2011 11:52-0400 Height 165.1 cm Sarah Mireles RN [facility] Work Phone: 10-06-2011 11:52-0400 Pulse (Heart Rate) 80 /min Sarah Mireles RN Comprehens ramon Internal Medicine Work Phone: Comment on above: Pattern: Regular 10-06-2011 11:52-0400 Respiratory Rate 16 /min Sarah Mireles RN Comprehensiv e Internal Medicine Work Phone: Comment on above: Pattern: Unlabored Encounters Encounter Date Encounter Type Care Provider Facility Start: 12-02-2023 Encounter for genera l adult medical examination without abnormal findings [facility] Start: 11-20-2023 End: 11-20-2023 ambulatory [facility] Facility:[facility] Start: 11-09-2023 End: 11-09-2023 ambulatory [facility] Facility:[facility] Start: 04-07-2023 End: 04-07-2023 ambulatory [facility] Facility:[facility] Start: 03-12-2023 End: 03-12-[address] Piter Andrew Work Phone: [facility] Work Phone: Start: 03-12-2023 End: 03-12-[address] Piter Andrew Work Phone: [facility]-Sleep Lab Work Phone: Start: 03-12-2023 End: 03-12-2023 ambulatory Piter Lorrie Facility:[facility] Start: 02-12-2023 Encounter for genera l adult medical examination with [facility]: 02-10-2023 ambulatory Piter Lorrie Facility: [facility] Start: 02-06-2023 End: 02-06-[address] Piter Andrew Work Phone: [facility] Work Phone: Start: 02-06-2023 End: 02-06-[address] Piter Andrew Work Phone: [facility]-Laboratory, [place] Work Phone: Start: 02-06-2023 End: 02-06-2023 ambulatory Christy London Facility:[facility] Start: 12-10-2022 End: 12-10-[address] Piter Andrew Work Phone: [facility]-P[facility] Work Phone: Start: 11-14-2022 End: 11-14-[address] Piter Andrew Work Phone: [facility] Work Phone: Start: 11-14-2022 End: 11-14-[address] Piter Andrew Work Phone: [facility]-Physical Therapy Work Phone: Start: 11-14-2022 End: 11-14-[address] Piter Andrew Work Phone: [facility]-Outpatient Breast Imaging Work Phone: Start: 10-20-2022 End: 10-20-[address] Piter Andrew Work Phone: [facility] Start: 10-23-2021 End: 10-23-[address] Piter Andrew Work Phone: [facility] Start: 10-09-2021 End: 10-09-2021 ambulatory [facility] Work Phone: Start: 10-09-2021 End: 10-09-2021 Patient encounter procedure [facility] Start: 09-17-2021 End: 09-17-2021 Patient encounter procedure [facility] Start: 09-11-2021 End: 09-11-2021 Patient encounter procedure [facility] Start: 10-30-2014 End: 10-30-2014 Patient encounter procedure Vanessa Meraz RN [facility]; [facility] Work Phone: Start: 10-30-2014 End: 10-30-2014 Periodic preventive med est patient 18-39 yrs Tara Del Valle [facility] Start: 09-08-2013 End: 09-08-2013 Initial preventive medicine new pt age 18-39yrs Tara Del Valle [facility] Start: 09-08-2013 End: 09-08-2013 Patient encounter procedure Tara Del Valle DO Work Phone: [facility] Start: 08-18-2012 End: 08-18-2012 Patient encounter procedure Tara Del Valle [facility] Start: 07-14-2012 End: 07-14-2012 Patient encounter procedure Tara Del Valle [facility] Start: 06-25-2012 End: 06-25-2012 Patient [...] Date Procedure Procedure Detail Performing Clinician Start: 11-14-[address] Piter Andrew Work Phone: Start: 10-20-2022 Plain X-ray of bilateral sacroiliac joints Dr. Piter Andrew Work Phone: Start: 10-20-2022 Pelvis X-ray Dr. Piter Andrew Work Phone: Start: 10-20-2022 X-ray of lumbosacral spine Dr. Piter Andrew Work Phone: Start: 09-17-2021 Ultrasonography of breast Start: 09-17-2021 Mammography Start: 09-11-2021 Screening mammography Start: 03-29-2015 End: 03-29-2015 Breast Limited Unilateral Comments: See Note; NOTES: [facility] Imaging Services [address] [place] [address] Verdana 4d Breast Limited Unilateral MR#: [id number] Acct: [id number] Name: ELVIA ARZOLA Rep #: [id number] : 1980 F 34 From: Maximus Majano MD PCP: Tara Del Valle DO Status: REG CLI Study: Breast Limited Unilateral Date of Exam: 03/29/15 Exam# [id number] Ordering Dr: Josafat Muñoz MD STUDY: ULTRASOUND [...] Maximus Majano MD at 10:47 EST Tel [phone], Service support [phone], STUDY: ULTRASOUND BREAST - LEFT REASON FOR [...] Maximus Majano MD at 10:48 EST Tel [phone], Service support [phone], CC: Josafat Muñoz MD; Tara Del Valle DO Property Technician: Signed Tara Del Valle Start: 03-29-2015 End: 03-29-2015 Bilat Diag Digital AND CAD Comments: See Note; NOTES: [facility] Imaging Services [address] [place] [address] Verdana 4d Bilat Diag Digital AND CAD MR#: [id number] Acct: [id number] Name: ELVIA ARZOLA Rep #: [id number] : 1980 F 34 From: Maximus Majano MD PCP: Tara Del Valle DO Status: REG CLI Study: Bilat Diag Digital AND CAD Date of Exam: 03/29/15 Exam# [id number] Ordering Dr: Josafat Muñoz MD MAMMOGRAPHY - [...] Maximus Majano MD at 10:30 EST Tel [phone], Service support [phone], CC: Josafat Muñoz MD; Tara Del Valle DO Property Technician: Signed Tara Del Valle Start: 09-22-2014 End: 09-22-2014 Pelvis (Routine) Comments: See Note; NOTES: [facility] Imaging Services [address] [place] [address] MRI Report MR#: [id number] Acct: [id number] Name: ELVIA ARZOLA Rep #: [id number] : 1980 F 34 From: Dung Joseph MD PCP: Tara Del Valle DO Status: REG CLI Study: Pelvis (Routine) Date of Exam: 09/22/14 Exam# [id number] Ordering Dr: Jennifer Benitez STUDY: MRI BILATERAL [...] FACR at 13:55 EDT , Service support [phone], CC: JENNIFER BENITEZ; Tara Del Valle DO Property Technician: Signed Tara Del Valle Start: 09-14-2014 End: 09-14-2014 Chest PA and Lateral Comments: See Note; NOTES: [facility] Imaging Services [address] [place] [address] Radiology Report MR#: [id number] Acct: [id number] Name: ELVIA ARZOLA Rep #: [id number] : 1980 F 34 From: Clarence Clement DO PCP: Tara Del Valle DO Status: REG CLI Study: Chest PA and Lateral Date of Exam: 09/14/14 Exam# [id number] Ordering Dr: Jennifer Benitez STUDY: X-RAY CHEST [...] Clarence Clement DO at 16:38 EDT Tel [phone], Service support [phone], RAD/Chest PA and Lateral IMPRESSION: 1. No acute cardiopulmonary disease. 2. Stable scoliosis when compared with January 05, 2013. Electronically Signed: Clarence Clement DO at 16:38 EDT Tel [phone], Service support [phone], CC: JENNIFER BENITEZ; Tara Del Valle DO Property Technician: Signed Tara Del Valle Start: 02-09-2002 End: 02-09-2002 Tonsillectomy Vanessa Meraz H/O: hysterectomy History of hysterectomy H/O: surgery Tonsillectomy Vanessa Meraz R N Comment on above: 2003 History of tonsillectomy History of tonsi llectomy Plan of Treatment Date Care Activity Detail Author Start: 02-22-2016 HbA1c (Bld) [Mass fraction] Hemoglobin Glyclated (HGB A1C) (88480) [facility] Work Phone: Start: 02-22-2016 Hemoglobin glycosylated a1c Hemoglobin Glyclated (HGB A1C) (48176) [facility]; [facility] Work Phone: Start: 10-25-2015 HbA1c (Bld) [Mass fraction] Hemoglobin Glyclated (HGB A1C) (30040) [facility] Work Phone: Start: 10-25-2015 Hemoglobin glycosylated a1c Hemoglobin Glyclated (HGB A1C) (44378) [facility]; [facility] Work Phone: Start: 06-27-2015 HbA1c (Bld) [Mass fraction] Hemoglobin Glyclated (HGB A1C) (38646) [facility] Work Phone: Start: 06-27-2015 Hemoglobin glycosylated a1c Hemoglobin Glyclated (HGB A1C) (02881) [facility]; [facility] Work Phone: Start: 02-27-2015 HbA1c (Bld) [Mass fraction] Hemoglobin Glyclated (HGB A1C) (30917) [facility] Work Phone: Start: 02-27-2015 Hemoglobin glycosylated a1c Hemoglobin Glyclated (HGB A1C) (25871) [facility]; [facility] Work Phone: Start: 10-30-2014 Procedure Education Eprescribe d prescriptions (G8553) [facility] Work Phone: Start: 10-30-2014 Provider Instruction s for Treatment Follow up in 4 months [facility] Work Phone: Start: 10-30-2014 HbA1c (Bld) [Mass fraction] Hemoglobin Glyclated (HGB A1C) (57698) [facility] Work Phone: Start: 10-30-2014 Hemoglobin glycosylated a1c Hemoglobin Glyclated (HGB A1C) (55552) [facility]; [facility] Work Phone: Start: 10-30-2014 Hepatic function panel HEPATIC FUNCTION PANEL (51001) [facility] Work Phone: Start: 10-30-2014 Lipid panel LIPID PANEL (59843) [facility] Work Phone: Start: 09-08-2013 Provider Instruction s for Treatment [facility] Work Phone: Start: 09-08-2013 Lipid panel LIPID PANEL (07886) [facility] Work Phone: Comment on above: do in december Start: 09-09-2012 25 hydroxy includes fractions if performed Vitamin D Hydroxy (07467) [facility] Work Phone: Start: 07-14-2012 Provider Instruction s for Treatment Follow up in 4 weeks [facility] Work Phone: Start: 06-25-2012 Provider Instruction s for Treatment Follow up in 2.5 weeks [facility] Work Phone: Start: 06-11-2012 Patient Education Weight Loss Diets *: overweight [facility] Work Phone: Start: 06-11-2012 Provider Instruction s for Treatment Follow up in 2 weeks [facility] Work Phone: Start: 05-28-2012 Patient Education Fats in the Diet: Good and Bad Recommendations for a Healthy Diet *: high-fat meals [facility] Work Phone: Start: 05-28-2012 Provider Instruction s for Treatment Follow up in 2 weeks [facility] Work Phone: Start: 05-13-2012 Provider Instruction s for Treatment [facility] Work Phone: Start: 05-13-2012 Rheumatoid factor quantitative RHEUMATOID FACTOR-QUANT (72811) test code 105939 [facility] Work Phone: Start: 05-13-2012 Extractable nuclear antigen antibody any method [facility] Work Phone: Start: 05-13-2012 Protein [Mass/Vol] ANTI-EQUIPMENT ASSOCIATE (A NTI RIBONUCLEAR PROTEIN ANTIBODY) (52793) test code 327121 [facility] Work Phone: Start: 05-13-2012 Dna antibody sun'aq/double stranded DNA ANTIBODY-NATV/DBL ST (91500) test code 487016 [facility] Work Phone: Start: 05-13-2012 HbA1c (Bld) [Mass fraction] Hemoglobin Glyclated (HGB A1C) (83861) [facility] Work Phone: Start: 05-13-2012 Hemoglobin glycosylated a1c Hemoglobin Glyclated (HGB A1C) (13590) [facility]; [facility] Work Phone: Start: 05-05-2012 Patient Education Abdominal Pa in: abdominal pain [facility] Work Phone: Start: 05-05-2012 Provider Instruction s for Treatment [facility] Work Phone: Start: 10-06-2011 Provider Instruction s for Treatment Reviewed Lab [facility] Work Phone: Start: 10-06-2011 Lipid panel LIPID PANEL (68291) [facility] Work Phone: Comment on above: do in 5-6 months Start: 10-06-2011 HbA1c (Bld) [Mass fraction] Hemoglobin Glyclated (HGB A1C) (91505) [facility] Work Phone: Start: 10-06-2011 Hemoglobin glycosylated a1c Hemoglobin Glyclated (HGB A1C) (62527) [facility]; [facility] Work Phone: MG Breast - bilatera l Screening [facility] Work Phone: [facility] Work Phone: [facility] Work Phone: [facility] Work Phone: [facility] Work Phone: Immunizations Immunization Date Immunization Notes Care Provider Fa cility 03-12-2020 Covid (Moderna) [facility] 02-13-2020 Covid (Moderna) [facility] 12-13-2018 influenza, injectabl e, quadrivalent, preservative free Dr. Piter Andrew Work Phone: [facility] 12-13-2018 influenza, seasonal, injectable [facility] Work Phone: 11-23-2017 tetanus toxoid, redu james diphtheria toxoid, and acellular pertussis vaccine, adsorbed [facility] 11-06-2017 influenza, injectabl e, quadrivalent, preservative free Dr. Piter Andrew Work Phone: [facility] 11-06-2017 influenza, seasonal, injectable [facility] Work Phone: 11-24-2016 influenza, injectabl e, quadrivalent, preservative free Dr. Piter Andrew Work Phone: [facility] 11-24-2016 influenza, seasonal, injectable [facility] Work Phone: 11-08-2015 influenza, injectabl e, quadrivalent, preservative free Dr. Piter Andrew Work Phone: [facility] 11-08-2015 influenza, seasonal, injectable [facility] Work Phone: 12-25-2014 influenza, injectabl e, quadrivalent, preservative free Dr. Piter Andrew Work Phone: [facility] 12-25-2014 influenza, seasonal, injectable [facility] Work Phone: 11-16-2013 influenza, injectabl e, quadrivalent, preservative free Dr. Piter Andrew Work Phone: [facility] 11-16-2013 influenza, seasonal, injectable [facility] Work Phone: 01-03-2013 Influenza virus vaccine [facility] Payers Date Payer Category Payer Self-pay [id number] 2022 Private Health Insurance [id number] 2013 Unknown [id number] Private Health Insurance [id number] Unknown [facility] Unknown [id number] Unknown [id number] 64 Unknown [id number] 62 Unknown [id number] 64 Unknown [id number] 64 Unknown [id number] 64 Unknown [id number] 64 Social History Date Type Detail Facility Alcohol Use: Alcohol Use: [facility] Work Phone: Caffeine Use Caffeine Use [facility] Work Phone: Comment on above: 2 qd Exercise History: Exercise History: [facility] Work Phone: Living Situation: Living Situation: [facility] Work Phone: Comment on above: 2 CHILDREN UNDER 18 Pets/Animals: Pets/Animals: [facility] Work Phone: Tobacco use: Tobacco use: [facility] Work Phone: Comment on above: 1/2 ppd Alcohol Use: Alcohol Use: [facility] Work Phone: Exercise History: Exercise History: [facility]; [facility] Work Phone: Living Situation: Living Situation: [facility]; [facility] Work Phone: Comment on above: 2 CHILDREN UNDER 18 Pets/Animals: Pets/Animals: [facility]; [facility] Work Phone: Tobacco use: Tobacco use: [facility] Work Phone: Comment on above: 02/10 ppd Start: 02-20-2021 End: 12-10-2022 Tobacco smoking status NHIS Unknown if ever smoked [facility] Start: 08-01-2019 Spouse/ Signif icant Other;With Family [facility] Start: 1980 Sex Assigned At Female [facility] Goals Date Patient Goal Desired Activity /State Discharge summary 11-19-2022 Note Date & Type Note Facility 11-19-2022 Discharge summary Note Date/Time November 19, 2022 10:32am [facility] Physical [facility] [address] [place] [address] / REHABILITATION SERVICES DISCHARGE SUMMARY MR#: [id number] Acct: [id number] Name: ELVIA ARZOLA Rep #: [id number] : 1980 42 From: Elli Recinos PT, Cert. DIAZT Referring Dr.: Dr. Navin Joseph MD Status: REG RCR Insurance: [facility] SELF PAY INSURANCE Discharge Summary D/C summary: It has been my pleasure to treat ELVIA ARZOLA referred by Dr. Navin Joseph MD, with the diagnosis of , SI DYSFUNCTION, AND SACROILITIS for a total of 7 visit(s). Discharge Date: Please see the following information for a summary of their discharge status. Subjective Subjective: PATIENT STATES SHE GOT TRUDY SI JOINT INJECTIONS FROM DR. DIONNA CRUZ AND SHE STILL FEELS NUMBING. DIDN'T KNOW SHE WAS GOING TO HAVE INJECTIONS UNTIL YESTERDAY. PATIENT STATES SHE LOVES THE POOL AND IT FELT GOOD INI THE POOL BUT SHE THINKS HER SI AND LBP WAS WORSE OVER ALL ON [place] AFTER STARTING THE WATER THERAPY. SHEREPORTS HAVING SOME GOOD MUSCLE SORENESS AND WAS SURPRISED BY HOW CHALLENGING THE POOL EX'S COULD BE. SHE REPORTS SHE IS CHANGING JOBS AND ISN'T GOING TO HAVEINSURANCE FOR AWHILE. Pain LB: Pain Intensity (Out of 10): 4 Overall Improvement % Improvement: 0 Objective Objective/Function: Deferred physical examination today due to just having injections this morning. Discussed possible benefits of aquatic therapy in conjunction with injections and patient will consider. Goals Goal 1:: DECREASE C/O LOW BACK, SACRAL, PELVIC AND LE SX'S. Goal Progress: Not Progressing Goal 2:: IMPROVE PERSONAL CARE, LIFTING, WALKING, SITTING, STANDING, SOCIAL LIFE, TRAVEL AND WORK/HOMEMAKING FUNCTION. Goal Progress: Not Progressing Goal 3:: INSTRUCT IN PROPHYLAXIS Goal Progress: Not Progressing Plan Plan: D/C AT THIS TIME TO INDEP HEP. PATIENT AGREEABLE. D/C Information d/c sentence: If there are questions or concerns regarding this patient's physical therapy, please feel free to call me at [phone]. Thank you for the referral of thispatient. Sincerely, Elli Recinos, PT, Cert MDT Balance/Gait/Functional tests Balance/Special Test Scores Oswestry Low Back Score: 13 Improvement % Improvement: 0 <Electronically signed by Elli Recinos PT, Cert. MDT> 11/19/22 1031 CC: Dr. Navin Joseph MD; Dr. Piter Andrew, DO ~ RAVINDRA Signed [facility] Work Phone: Evaluation note Note Date & Type Note Facility Evaluation note No assessment information availa ble [facility] Work Phone: Evaluation note Note Date & Type Note Facility Evaluation note Diagnosis Onset Date Encounter for routine gyneco logical examination noneactive [facility] Work Phone: Evaluation note Note Date & Type Note Facility Evaluation note Diagnosis Onset Date Obesity (BMI 30.0-34.9) porter sample case mohsen CHANDAN (obstructive sleep apnea) chronic [facility] Work Phone: Instructions Note Date & Type Note Facility Instructions Name How to access health information online Indication:Annual physical exam Start: 5 Instruction Type:Patient Education How to access health information online - Detail Indication:Annual physical exam Start: 5 Instruction Type:Patient Education Patient Instructions Indication:Annual physical exam Start: 5 Instruction Type:Provider Instructions for Treatment How to access health information online Indication:Annual physical exam Start: 4 Instruction Type:Patient Education How to access health information online - Detail Indication:Annual physical exam Start: 4 Instruction Type:Patient Education obesity counseling Indication:Weight Gain Start: 3 Instruction Type:Provider Instructions for Treatment Patient Instructions Indication:Obesity (BMI 30-39.9) Start:14-Jul-2012 Instruction Type:Provider Instructions for Treatment Patient Instructions Indication:Obesity (BMI 30-39.9) Start:11-Jun-2012 Instruction Type:Provider Instructions for Treatment obesity counseling Indication:Obesity (BMI 30-39.9) Start: 3 Instruction Type:Provider Instructions for Treatment Patient Instructions Indication:Obesity (BMI 30-39.9) Start: 3 Instruction Type:Provider Instructions for Treatment Patient Instructions Indication:Abdominal pain, acute, generalized Start:13-May-2012 Instruction Type:Provider Instructions for Treatment Patient Instructions Indication:Hospital discharge follow-up Start: 3 Instruction Type:Provider Instructions for Treatment Patient Instructions: do diet and execise repeat chol panel in 4-6 months Indication:Encounter for routine adult medical examination Start: 2 Instruction Type:Provider Instructions for Treatment [facility]; [facility] Work Phone: Instructions Note Date & Type Note Facility Instructions Name How to access health information online Indication:Annual physical exam Start: 5 Instruction Type:Patient Education How to access health information online - Detail Indication:Annual physical exam Start: 5 Instruction Type:Patient Education Patient Instructions Indication:Annual physical exam Start: 5 Instruction Type:Provider Instructions for Treatment How to access health information online Indication:Annual physical exam Start: 4 Instruction Type:Patient Education How to access health information online - Detail Indication:Annual physical exam Start: 4 Instruction Type:Patient Education obesity counseling Indication:Weight Gain Start: 3 Instruction Type:Provider Instructions for Treatment Patient Instructions Indication:Obesity (BMI 30-39.9) Start:14-Jul-2012 Instruction Type:Provider Instructions for Treatment Patient Instructions Indication:Obesity (BMI 30-39.9) Start:11-Jun-2012 Instruction Type:Provider Instructions for Treatment obesity counseling Indication:Obesity (BMI 30-39.9) Start: 3 Instruction Type:Provider Instructions for Treatment Patient Instructions Indication:Obesity (BMI 30-39.9) Start: 3 Instruction Type:Provider Instructions for Treatment Patient Instructions Indication:Abdominal pain, acute, generalized Start:13-May-2012 Instruction Type:Provider Instructions for Treatment Patient Instructions Indication:Hospital discharge follow-up Start: 3 Instruction Type:Provider Instructions for Treatment Patient Instructions: do diet and execise repeat chol panel in 4-6 months Indication:Encounter for routine adult medical examination Start: 2 Instruction Type:Provider Instructions for Treatment [facility]; [facility] Work Phone: Summary Purpose Family History No Family History Records FoundUnknown Family Member Name Dates Details Alcohol Abuse [...] Status:Active Thyroid problems Comments:Maternal Grandmothe r. Status:Active Relationship Condition Age at Onset Recorded Date/T farhana father Hypertension Unknown mother Malignant neoplasm Unknown grandfather Malignant neoplasm of prostate Unknown grandmother Malignant neoplasm of breast Unknown Not Specified Malignant neoplasm of breast Unknown Unknown Family Member Name Dates Details Alcohol Abuse Comments:Father. Paternal Gr andfather. Status:Active Depression Comments:Father. Status:Active Diabetes Mellitus Comments:Paternal Aunt. Status:Active Hypertension Comments:Father. Status:Active Sudden Comments:Father. Status:Active Thyroid problems Comments:Maternal Grandmothe r. Status:Active Relationship Condition Age at Onset Recorded Date/T farhana father Hypertension Unknown mother Malignant neoplasm Unknown Malignant neoplasm of breast Unknown grandfather Malignant neoplasm of prostate Unknown grandmother Malignant neoplasm of breast Unknown Not Specified Malignant neoplasm of breast Unknown Advance Directives No Advanced Directives Records Found Advance Directive Response Recorded Date/ Time Living Will No September 01, 2019 4:02pm Power of Supervisor Order Takers No August 31 0 4:02pm Advance Directive Response Recorded Date/ Time Living Will No September 01, 2019 3:02pm Power of Supervisor Order Takers No August 31 0 3:02pm Advance Directive Response Recorded Date/ Time Advance Directives No November 25, 2013 10:13am Living Will No September 01, 2019 4:02pm Power of Supervisor Order Takers No August 31 0 4:02pm Advance Directive Response Recorded Date/ Time Advance Directives No November 25, 2013 9:13am Living Will No September 01, 2019 3:02pm Power of Supervisor Order Takers No August 31 0 3:02pm Instructions Name Dates Details How to access [...] examination Start:06-Oct-2011 Instruction Type:Provider Instructions for Treatment Chief Complaint and Reason for Visit Chief Complaint SCREENING Chief Complaint SCREENING ABD MAMM Chief Complaint SCREENING 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) Reason for Visit Encounter for routin e gynecological examination Chief Complaint XRAY SCREENING SI DYSFUNCTION RX HERE Chief Complaint XRAY SCREENING SI DYSFUNCTION RX HERE Needs sleep study Reason for Visit Obesity (BMI 30.0-34 .9) CHANDAN (obstructive sleep apnea) Chief Complaint Needs sleep study OBSTRUCTIVE SLEEP APNEA Reason for Visit Obesity (BMI 30.0-34 .9) CHANDAN (obstructive sleep apnea) Additional Source Comments INFORMATION SOURCE (unrecogn ized section and content) DATE CREATED AUTHOR 11/11/2019 [facility] DATE CREATED AUTHOR AUTHOR'S ORGANIZ ATION 12/15/2023 [facility] Care Teams (unrecognized sec tion and content) Team Status: Active Member Role Status Dates Dr. Piter Andrew DO Family Provider Active Dr. Piter Andrew DO Primary Care Provider Active Team Status: Inactive Member Role Status Dates Dr. Piter Andrew DO Primary Care Provider Active Dr. Scar Turner MD Attending Provider Active Team Status: Inactive Member Role Status Dates Dr. Piter Andrew DO Primary Care Provider Active Dr. Navin Joseph MD Attending Provider, Referring Provider Active Team Status: Inactive Member Role Status Dates Dr. Piter Andrew , DO Primary Care Provider Active Christy London NP-C Attending Provider, Referring Prov ider Active Team Status: Inactive Member Role Status Dates Dr. Piter Andrew , DO Primary Care Provider, Referrin g Provider Active Laurence Guerra ACID PURIFIER, ACID PURIFIER-C Attending Provider Active Team Status: Inactive Member Role Status Dates Dr. Piter Andrew , DO Primary Care Provider Active Laurence Guerra ACID PURIFIER, ACID PURIFIER-C Attending Provider, Referrin g Provider Active FOR RECORDS PERTAINING TO PATIENTS WHO ARE [...] BE BASED ON THE PRIMARY CLINICAL RECORDS. [employer] provides no warranty or guarantee of the accuracy or completeness of information in this document.
[2024-09-15 11:11] VITALS: BP 98/66; PULSE 82; RESP 18; TEMP 37.2; O2SAT 100
== END 2024-09-15 11:15 | disposition home or self-care (01) ==
PROVIDERS: Emergency Provider Emergency Medicine; PCP Family Medicine; Visit Provider Emergency Medicine
DX: R10.9 Unspecified abdominal pain (principal); E11.9 Type 2 diabetes mellitus without complications; R11.2 Nausea with vomiting, unspecified; Z87.891 Personal history of nicotine dependence
CPT/HCPCS: 74177; 80053; 81001; 83690; 85025; 96361; 96374; 99283; Q9967; A4216; J2405

== ENCOUNTER → 2024-12-06 | Outpatient (CLI) | payer OTHER, SELFPAY ==
--- NOTE | 2024-12-06 16:01 | BI_ITS ---
EXAM: SCRN MAMM (CAD)W/JASMYNE BILAT DATE: 12/06/2024 CLINICAL HISTORY: F, Age 44 y/o , SCREENING Mother with breast cancer. Grandmother with breast cancer. TECHNIQUE: Procedure Code: [id number] Modality: MG Procedure: SCRN MAMM (CAD)W/JASMYNE BILAT COMPARISON: Prior exam(s) dated November 20, 2023.. FINDINGS: TISSUE DENSITY: There are scattered areas of fibroglandular density. Bilateral Breast Mammographic Findings: There is a 7 mm x 8 mm nodular density in the anterior superior lateral retroareolar region of the left breast. Sonographic correlation recommended. BI/SCRN MAMM (CAD)W/JASMYNE BILAT IMPRESSION: 7 mm x 8 mm nodular density in the anterior superior lateral retro areolar tiffanie on of the left breast as described. Sonographic correlation recommended. OVERALL FINAL ASSESSMENT BI-RADS 0: INCOMPLETE - NEED ADDITIONAL IMAGING EVALUATION. RECOMMENDATION: Ultrasound Recommended Additional Recommendation none A letter with findings and recommendations will be mailed to the patient. Reading Location: [id number]
== END | disposition home or self-care (01) ==
LOC: OPBI 16:00
PROVIDERS: PCP Family Medicine; Referring Provider Family Medicine; Visit Provider Family Medicine
DX: Z12.31 Encounter for screening mammogram for malignant neoplasm of breast (principal); Z80.3 Family history of malignant neoplasm of breast
CPT/HCPCS: 77063; 77067

== ENCOUNTER → 2024-12-09 | Outpatient (CLI) | payer OTHER, SELFPAY ==
--- NOTE | 2024-12-09 14:20 | US_ITS ---
PROCEDURE: BREAST LIMITED UNILATERAL 12/09/2024 REASON FOR EXAM: F, Age 44 y/o , ABD MAMM COMPARISON: Mammogram 11/28/2024, 11/14/2022. Ultrasound 09/18/2021. TECHNIQUE: Procedure Code: [id number] Modality: US Procedure: BREAST LIMITED UNILATERAL FINDINGS: Follow-up examination performed for the left breast mass seen on examination of 11/28/2024. On the present examination, there is a cyst cluster in the left breast at 12:30 o'clock 3 cm from the nipple measuring 1.1 x 1.0 x 0.5 cm. This mass appears to wax and wane when compared to multiple prior mammograms. US/Breast Limited Unilateral IMPRESSION: Benign left breast cyst cluster. BI-RADS 2: BENIGN RECOMMENDATION: Routine annual follow-up in 1 Year Reading Location: [id number]
== END | disposition home or self-care (01) ==
LOC: OPUS 14:18
PROVIDERS: PCP Family Medicine; Referring Provider Family Medicine; Visit Provider Family Medicine
DX: R92.8 Other abnormal and inconclusive findings on diagnostic imaging of breast (principal)
CPT/HCPCS: 76642

== ENCOUNTER → 2024-12-26 | Outpatient (CLI) | payer OTHER, SELFPAY ==
--- OUTSIDE RECORDS SUMMARY | 2024-12-26 09:32 | XMS RPT_ITS | CCD ---
Author Organization [facility] Care Team Providers Care Shuttle Van Driver Name Role Phone Tara Del Valle Unavailable Josafat Vargas Unavailable Royal Huddleston Unavailable Starchmaker, System Unavailable Unavailable Lindsay Vaca Unavailable Unavailable Vanessa Meraz Unavailable Unavailable Unavailable Unavailable Dr. Piter Andrew Primary Care Provider [phone] Dr. Piter Andrew Referring Provider Dr. Mandy Hess Attending Provider Dr. Piter Andrew Primary Care Provider Dr. Scar Turnre Attending Provider Dr. Piter Andrew Primary Care Provider [phone] Dr. Scar Turner Attending Provider Dr. Piter Andrew Referring Provider Charlie ACUNA, KALPANA-Jose C Dang Attending Provider Dr. Piter Andrew Primary Care Provider Dr. Piter Andrew DO Primary Care Provider Dr. Kam Frey DO Emergency Provider Piter Andrew Primary Care Unavailable Piter Andrew Referring Unavailable Piter Andrew Attending Unavailable Piter Andrew Primary Care Unavailable Piter Andrew Referring Unavailable Piter Andrew Attending Unavailable Piter Andrew Primary Care Unavailable Kam Frey Attending Unavailable Allergies Allergy Classification Reported Allergen(s) Allergy Type Date of Onset Reaction(s) Facility (8 sources) Amoxicillin Drug Allergy 1 Abd cramps/diarrhea [facility] Comment on above: GI upset/Yeast infec tion (8 sources) Clavulanate Drug Allergy 1 Abd cramps/diarrhea [facility] Comment on above: GI upset/Yeast infec tion (1 source) Amoxicillin Drug Allergy 5 [facility] Repository (1 source) Clavulanate Drug Allergy 5 [facility] Medications Current Medications Medication Drug Class(es) Dates Sig (Normalized) Sig (Original) celecoxib 200 mg oral capsule (1 source) Nonsteroidal Anti-inflammatory Drug Start: 04-07-2023 take 1 capsule by mouth once daily Celecoxib 200 mg capsule Active 200 mg PO DAILY April 07, 2023 1:00am RA 1 ml ixekizumab 80 mg/ml auto-injector (5 sources) Interleukin-17A Antagonist Start: 10-23-2021 Ixekizumab (Taltz Autoinjector) 80 mg/mL auto-injector Active 80 mg SC every 4 weeks October 23, 2021 12:00am omeprazole 20 mg delayed release oral capsule (5 sources) Proton Pump Inhibitor Start: 10-23-2021 take 1 capsule by mouth once daily Omeprazole 20 mg capsule,delayed release(DR/EC) Active 20 mg PO DAILY October 23, 2021 12:00am ondansetron 4 mg disintegrating oral tablet (1 source) Serotonin-3 Receptor Antagonist Start: 09-15-2024 take 1 tablet by mouth every eight hours as needed for nausea Ondansetron 4 mg tablet,disintegra ting Active 4 mg PO EVERY 8 HOURS NEEDED as needed for Nausea 10 0 September 15, 2024 12:00am Tirzepatide (Mounjaro) 10 mg/0.5 mL pen injector (3 sources) Start: 12-10-2022 Tirzepatide (Mounjaro) 10 mg/0.5 mL pen injector Active 10 mg SC EVERY WEEK December 10, 2022 12:00am Start: 12-10-2022 Tirzepatide (M ounjaro) 10 mg/0.5 mL pen injector Active 10 MG SC EVERY WEEK December 09, 2022 11:00pm Completed/Discontinued Medications Medication Drug Class(es) Dates Sig (Normalized) Sig (Original) acetaminophen 325 mg / oxyCODONE hydrochloride 5 mg oral tablet (8 sources) Opioid Agonist Start: 12-02-2013 End: 12-27-2018 Oxycodone-Acetamino phen 1 TABLET tablet Discontinued 2 {tbl} PO EVERY 4 HOURS NEEDED as needed for Moderate-Severe pain 30 December 02, 2013 12:00am December 27, 2018 3:12pm Start: 12-02-2013 End: 12-27-2018 take 2 tablets by mouth every four hours as needed Oxycodone-Acetaminophen Discontinued 2 TABLET PO EVERY 4 HOURS NEEDED December 01, 2013 11:00pm December 27, 2018 2:12pm 0.8 ml adalimumab 50 mg/ml prefilled syringe (13 sources) Tumor Necrosis Factor Jackelyn Start: 11-25-2013 End: 12-27-2018 Adalimumab 40 MG/0.8 ML syringe kit Discontinued 40 mg SQ DIRECTED November 25, 2013 12:00am December 27, 2018 3:15pm Start: 09-08-2013 HUMIRA, 40MG/0 .8ML (Subcutaneous Kit) [...] mg / clavulanate 125 mg oral tablet (8 sources) Penicillin-class Antibacterial Start: 01-31-2018 End: 12-27-2018 take 1 tablet by mouth every twelve hours Amoxicillin-Pot Clavulanate 875 MG tablet Discontinued 875 mg PO Q12H 20 0 January 31, 2018 1:00am December 27, 2018 3:11pm cholecalciferol 1.25 mg oral capsule (5 sources) Vitamin D Start: 05-13-2012 take 1 capsule by mouth every week VITAMIN D3, [id number] (Oral Capsule) 1 Capsule 2 xweek for 0 days Quantity: 8 {Capsule} Refills: 6 Ordered: 13-May-2012 Sarah Mireles RN Start : 13-May-2012 Active ibuprofen 800 mg oral tablet (13 sources) Nonsteroidal Anti-inflammatory Drug Start: 10-06-2011 End: 12-27-2018 take 1 tablet by mouth three times daily as needed for pain Ibuprofen 800 MG tablet Discontinued 800 mg PO 3 TIMES DAILY NEEDED as needed for Pain 30 December 02, 2013 12:00am December 27, 2018 3:13pm lansoprazole 30 mg delayed release oral capsule (8 sources) Proton Pump Inhibitor Start: 12-27-2018 End: 10-23-2021 take 1 capsule by mouth once daily Lansoprazole (Prevacid) 30 mg capsule,delayed release(DR/EC) Discontinued 30 mg PO DAILY December 27, 2018 1:00am October 23, 2021 2:46pm meloxicam 15 mg oral tablet (5 sources) Nonsteroidal Anti-inflammatory Drug Start: 10-23-2021 End: 12-10-2022 take 1 tablet by mouth once daily Meloxicam 15 mg tablet Discontinued 15 mg PO DAILY October 23, 2021 12:00am December 10, 2022 9:51am metFORMIN hydrochloride 500 mg oral tablet (9 sources) Biguanide Start: 02-19-2022 End: 12-10-2022 take 1 tablet by mouth twice daily Metformin 500 mg tablet Discontinued 500 mg PO TWICE A DAY February 19, 2022 8:37am December 10, 2022 9:50am Start: 10-23-2021 End: 02-19-2022 take 1 tablet by mouth once daily Metformin 500 mg tablet Discontinued 500 mg PO DAILY October 23, 2021 12:00am February 19, 2022 8:38am nabumetone 500 mg oral tablet (8 sources) Nonsteroidal Anti-inflammatory Drug Start: 12-27-2018 End: 10-23-2021 take 1 tablet by mouth once daily Nabumetone 500 mg tablet Discontinued 1500 mg PO DAILY December 27, 2018 1:00am October 23, 2021 2:46pm Start: 12-27-2018 End: 10-23-2021 take 1500 mg [...] citrate 100 mg extended release oral tablet (8 sources) Muscle Relaxant Start: 12-12-2017 End: 12-27-2018 take 1 tablet by mouth twice daily Orphenadrine Citrate 100 mg tablet extended release Discontinued 100 mg PO TWICE A DAY 30 0 December 12, 2017 12:00am December 27, 2018 3:13pm phentermine hydrochloride 37.5 mg oral tablet (5 [...] Active promethazine hydrochloride 25 mg oral tablet (8 sources) Phenothiazine Start: 12-02-2013 End: 12-27-2018 take 1 tablet by mouth every four hours as needed for nausea Promethazine 25 MG tablet Discontinued 25 mg PO EVERY 4 HOURS NEEDED as needed for Nausea/Vomiting 28 02December 02, 2013 12:00am December 27, 2018 3:12pm 1 ml secukinumab 150 mg/ml prefilled syringe (8 sources) Interleukin-17A Antagonist Start: 12-27-2018 End: 10-23-2021 Secukinumab (Cosentyx) 150 mg/mL syringe Discontinued 150 mg SC MONTHLY December 27, 2018 1:00am October 23, 2021 2:47pm Semaglutide (4 sources) Start: 02-19-2022 End: 12-10-2022 Semaglutide (Ozempic) 1 mg/dose (4 mg/3 mL) pen injector Discontinued 1 mg SC EVERY WEEK February 19, 2022 1:00am December 10, 2022 9:51am Start: 02-19-2022 End: 12-10-2022 Semaglutide (Ozempic) 1 mg/d ose (4 mg/3 mL) pen injector Discontinued 1 MG SC EVERY WEEK February 19, 2022 12:00am December 10, 2022 8:51am Start: 02-19-2022 Semaglutide (O zempic) 1 mg/dose (4 mg/3 mL) pen injector Active 1 MG SC EVERY WEEK February 19, 2022 1:00am traZODone hydrochloride 50 mg oral tablet (8 sources) Serotonin Reuptake Inhibitor Start: 07-27-2018 End: 12-27-2018 take 1 tablet by mouth at bedtime Trazodone 50 MG tablet Discontinued 50 mg PO AT BEDTIME July 27, 2018 12:00am December 27, 2018 3:12pm Problems Active Problems Problem Classification Problem Date Documented Da te Episodic/Chronic Abdominal pain (11 sources) Generalized abdominal pain; Translations: [Abdominal pain, acute, generalized] Onset: 09-20-2024 Resolved: 05-13-2012 12-25-2014 Episodic Diabetes mellitus without complication (8 sources) Diabetes mellitus; Translations: [Type 2 diabetes [...] Chronic Disorders of lipid metabolism (9 sources) Hypercholesterolemia ; Translations: [Hypercholesteremia] 11-14-2014 Chronic Malaise and fatigue (15 sources) Fatigue; Translations: [FATIGUE] 10-30-2014 Episodic Nausea and vomiting (1 source) Nausea and vomiting; Translations: [Nausea with vomiting, unspecified] 09-15-2024 Episodic Nonmalignant breast conditions (7 sources) Cyst of breast; Translations: [Solitary cyst of left breast] 09-18-2021 Episodic Comment on above: Diagnostic mammogram , breast US- cluster of cysts left breast repeat mammogram in 1 year Nutritional deficiencies (10 sources) Vitamin D deficiency; Translations: [Vitamin d deficiency] 10-30-2014 Chronic Open wounds of head; neck; and trunk (8 sources) Labia - open wound; Translations: [Unspecified open wound of vagina and vulva, initial encounter] 08-02-2019 Episodic Other acquired deformities (8 sources) Scoliosis deformity of spine; Translations: [Scoliosis, unspecified] 08-30-2019 Chronic Other aftercare (6 sources) Post-discharge follow-up; Translations: [Hospital discharge follow-up] 10-30-2014 Episodic Other bone disease and musculoskeletal deformities (20 sources) Segmental and somatic dysfunction; Translations: [Segmental and somatic dysfunction of lumbar region] 08-02-2019 Episodic Other lower respiratory disease (8 sources) Dyspnea; Translations: [Shortness of breath] 08-01-2019 Episodic Other lower respiratory disease (1 source) Snoring; Translations: [Snoring] 04-07-2023 Episodic Other non-traumatic joint disorders (7 sources) Joint pain; Translations: [Arthralgia] 10-30-2014 Episodic Comment on above: seeing Dr Benitez and no definitive dx yet-- working on it Other nutritional; endocrine; and metabolic disorders (20 sources) Obesity; Translations: [Obesity, unspecified] Chronic Other nutritional; endocrine; and metabolic disorders (5 sources) Obesity, unspecified; Translations: [Obesity (BMI 30-39.9)] 10-30-2014 Chronic Other nutritional; endocrine; and metabolic disorders (8 sources) Obese class I; Translations: [Obesity, unspecified] 12-27-2018 Chronic Other nutritional; endocrine; and metabolic disorders (2 sources) Obesity, unspecified; Translations: [Obesity, unspecified] 12-10-2022 Chronic Other nutritional; endocrine; and metabolic disorders (11 sources) Weight gain; Translations: [Weight Gain] 10-30-2014 Episodic Other screening for suspected conditions (not mental disorders or infectious disease) (20 sources) Blood chemistry abnormal; Translations: [Abnormal blood chemistry] Onset: 12-06-2024 11-14-2014 Episodic Comment on above: theo positive -- saw may and she thinks may be related to chrons and wants a scope with bx Empower hereditary c ancer test negative Other upper respiratory disease (5 sources) Allergic rhinitis, cause unspecified; Translations: [Allergic Rhinitis] 10-30-2014 Chronic Residual codes; unclassified (8 sources) Obstructive sleep apnea syndrome; Translations: [Obstructive sleep apnea (adult) (pediatric)] 08-01-2019 Chronic Comment on above: AHI 14.6. BiPAP 14/1 0 centimeters of water Residual codes; unclassified (2 sources) Obstructive sleep apnea (adult) (pediatric); Translations: [Obstructive sleep apnea (adult)(pediatric)] 12-10-2022 Chronic Residual codes; unclassified (1 source) H/O: surgery; Translations: [Tonsillectomy] 10-30-2014 Episodic Comment on above: 2003 Residual codes; unclassified (7 sources) FH: Diabetes mellitus; Translations: [Family history of diabetes mellitus] 10-30-2014 Episodic Residual codes; unclassified (3 sources) Family history of diabetes mellitus Episodic Rheumatoid arthritis and related disease (16 sources) Rheumatoid arthritis; Translations: [Rheumatoid arthritis, unspecified] 12-27-2018 Chronic Spondylosis; intervertebral disc disorders; other back problems (8 sources) Disseminated idiopathic skeletal hyperostosis; Translations: [Ankylosing hyperostosis [[place]], site unspecified] 08-01-2019 Chronic Spondylosis; intervertebral disc disorders; other back problems (8 sources) Backache; Translations: [Dorsalgia, unspecified] 09-19-2019 Episodic Sprains and strains (8 sources) Chondrocostal joint sprain; Translations: [Sprain of ribs, initial encounter] 05-31-2020 Episodic Past or Other Problems Problem Classification [...] Test Name Value Interpretation Reference Range Facility Breast Limited Unilateralon 12-09-2024 Breast Limited Unilateral [facility] [address] [place], [place] [address] Breast Limited Unilateral MR#: [id number] Acct: [id number] Name: ELVIA ARZOLA Rep #: [id number] : 1980 F 44 From: Grisel Alvarez MD PCP: Dr. Piter Andrew DO Status: REG CLI Study: Breast Limited Unilateral Date of Exam: Exam# [id number] Ordering Dr: Piter Andrew DO PROCEDURE: BREAST LIMITED UNILATERAL 12/09/2024 REASON FOR EXAM: F, Age 44 y/o , ABD MAMM COMPARISON: Mammogram 11/28/2024, 11/14/2022. Ultrasound 09/18/2021. TECHNIQUE: Procedure Code: USBRSTLIMIT Modality: US Procedure: BREAST LIMITED UNILATERAL FINDINGS: Follow-up examination performed for the left breast mass seen on examination of 11/28/2024. On the present examination, there is a cyst cluster in the left breast at 12:30 o'clock 3 cm from the nipple measuring 1.1 x 1.0 x 0.5 cm. This mass appears to wax and wane when compared to multiple prior mammograms. US/Breast Limited Unilateral IMPRESSION: Benign left breast cyst cluster. BI-RADS 2: BENIGN RECOMMENDATION: Routine annual follow-up in 1 Year Reading Location: [facility] CC: Dr. Piter Andrew DO Market Researcher: Signed Normal [facility] SCRN MAMM (CAD)W/JASMYNE BILATo n 12-06-2024 SCRN MAMM (CAD)W/JASMYNE BILAT [facility] [address] [facility], [place] [address] SCRN MAMM (CAD)W/JASMYNE BILAT MR#: [id number] Acct: [id number] Name: ELVIA ARZOLA Rep #: [id number] : 1980 F 44 From: Maximus vides MD PCP: Dr. Piter Andrew DO Status: REG CLI Study: SCRN MAMM (CAD)W/JASMYNE BILAT Date of Exam: 11/10 10/03 Exam# [id number] Ordering Dr: Piter Andrew DO EXAM: SCRN MAMM (CAD)W/JASMYNE BILAT DATE: 12/06/2024 CLINICAL HISTORY: F, Age 44 y/o , SCREENING Mother with breast cancer. Grandmother with breast cancer. TECHNIQUE: Procedure Code: BISMWCADBTOM Modality: MG Procedure: SCRN MAMM (CAD)W/JASMYNE BILAT COMPARISON: Prior exam(s) dated November 20, 2023.. FINDINGS: TISSUE DENSITY: There are scattered areas of fibroglandular density. Bilateral Breast Mammographic Findings: There is a 7 mm x 8 mm nodular density in the anterior superior lateral retroareolar region of the left breast. Sonographic correlation recommended. BI/SCRN MAMM (CAD)W/JASMYNE BILAT IMPRESSION: 7 mm x 8 mm nodular density in the anterior superior lateral retro areolar region of the left breast as described. Sonographic correlation recommended. OVERALL FINAL ASSESSMENT BI-RADS 0: INCOMPLETE - NEED ADDITIONAL IMAGING EVALUATION. RECOMMENDATION: Ultrasound Recommended Additional Recommendation none A letter with findings and recommendations will be mailed to the patient. Reading Location: [id number] CC: Dr. Piter Andrew DO Market Researcher: Signed Normal [facility] Abdomen/Pelvis W IV Cont ONL Yon 09-15-2024 Abdomen/Pelvis W IV Cont ONLY [facility] [address] [facility] [place], [place] [id number] Abdomen/Pelvis W IV Cont ONLY MR#: [id number] Acct: [id number] Name: ELVIA ARZOLA Rep #: [id number] : 1980 F 44 From: Maximus vides MD PCP: Dr. Piter Andrew DO Status: REG ER Study: Abdomen/Pelvis W IV Cont ONLY Date of Exam: Exam# [id number] Ordering Dr: Kam Frey DO PROCEDURE: ABDOMEN/PELVIS W IV CONT ONLY 09/15/2024 REASON FOR EXAM: ABDOMINAL PAIN Nausea and vomiting. TECHNIQUE: ABDOMEN/PELVIS W IV CONT ONLY Coronal and Sagittal reconstruction series were provided. CONTRAST: Isovue 370 VOLUME: 100 mL One or more dose reduction techniques were used (e.g., Automated exposure control, adjustment of the mA and/or kV according to patient size, use of iterative reconstruction technique. RADIATION DOSE SUMMARY: CTDlvol: 11 mGy DLP: 616.94 mGycm COMPARISON: None FINDINGS: Lung bases: Lung bases are clear. No coronary artery calcification is seen. Liver: Normal size. No mass. Gallbladder: Unremarkable Spleen: Normal size. Pancreas: Normal size without evidence of mass surrounding inflammation or ductal dilation. Adrenals: Unremarkable Kidneys: Normal renal sizes. No hydronephrosis. Bladder: Unremarkable Reproductive Organs: Small bilateral ovarian follicles. Bowel: Nonspecific bowel gas pattern. Scattered sigmoid diverticula. Appendix: Unremarkable Lymph nodes: Unremarkable. Vasculature: The abdominal aorta and IVC are normal. Peritoneum / Retroperitoneum: Unremarkable. Bones: Dextroscoliosis. CT/Abdomen/Pelvis W IV Cont ONLY IMPRESSION: Small bilateral ovarian follicles. Reading Location: [id number] CC: Dr. Kam Frey DO; Dr. Piter Andrew DO Market Researcher: Signed Normal [facility] Absolute lymphocyte countOrd ered By: Kam Frey on 09-15-2024 Lymphocytes Auto (Unsp spec) [#/Vol] 2.33 10*3/uL 0.83-4.51 [facility] Absolute neutrophil countOrd ered By: Kam Frey on 09-15-2024 Neutrophils (Bld) [#/Vol] 4.6 10*3/uL 2.0-7.7 [facility] Anion gap in Serum or Plasma Ordered By: Kam Frey on 09-15-2024 Anion gap [Moles/Vol] 10 mmol/L 5-15 [facility] Automated lymphocyte count a s percentage of total leukocytesOrdered By: Kam Frey on 09-15-2024 Lymphocytes/100 WBC Auto (Unsp spec) 31.4 % 19-41 [facility] BUN/creatinine ratioOrdered By: Kam Frey on 09-15-2024 Urea nitrogen/Creatinine [Mass ratio] 16.4 mg/mg 10-20 [facility] Basophil percentageOrdered B y: Kam Frey on 09-15-2024 Basophils/100 WBC (Bld) 0.4 % 0-1 [facility] Bilirubin Test strip Ql (U)O rdered By: Kam Frey on 09-15-2024 Bilirubin Ql (U) Negative Negative [facility] Bilirubin, totalOrdered By: Kam Frey on 09-15-2024 Bilirubin [Mass/Vol] 0.39 mg/dL 0.00-1.30 [facility] CBC W/Diff, Automatedon 08 Absolute Lymph 2.33 X10 3/uL Normal 0.83-4.51 [facility] Comment on above: Performed By: #### L 100.0100, L501.2450, L500.4050 #### [facility] [address] [place], [address] Absolute Neut 4.6 X10 3/uL Normal 2.0-7.7 [facility] Comment on above: Performed By: #### L 100.0100, L501.2450, L500.4050 #### [facility] [address] [place], [address] Basophils/100 WBC (Bld) 0.4 % Normal 0-1 [facility] Comment on above: Performed By: #### L 100.0100, L501.2450, L500.4050 #### [facility] [address] [place], [address] Eosinophils/100 WBC (Bld) 1.1 % Normal 0-5 [facility] Comment on above: Performed By: #### L 100.0100, L501.2450, L500.4050 #### [facility] [address] [place], [address] Erythrocyte distribution width (RBC) [Ratio] 11.9 % Normal 11.6-14.6 [facility] Comment on above: Performed By: #### L 100.0100, L501.2450, L500.4050 #### [facility] [address] [place], [address] Hematocrit (Bld) [Volume fraction] 37.5 % Normal 37-47 [facility] Comment on above: Performed By: #### L 100.0100, L501.2450, L500.4050 #### [facility] [address] [place], [address] Hemoglobin (Bld) [Mass/Vol] 13.1 g/dL Normal 12.0-15.0 [facility] Comment on above: Performed By: #### L 100.0100, L501.2450, L500.4050 #### [facility] [address] [place], [address] IG% 0.300 Normal 0.0-0.9 [facility] Comment on above: Result Comment: IG% - Immature Granulocytes (promyelocytes, myelocytes and metamyelocytes) > 1% indicates that a LEFT SHIFT is Present. Performed By: #### L 100.0100, L501.2450, L500.4050 #### [facility] [address] [place], [address] Lymphocytes/100 WBC (Bld) 31.4 % Normal 19-41 [facility] Comment on above: Performed By: #### L 100.0100, L501.2450, L500.4050 #### [facility] [address] [place], [address] MCH (RBC) [Entitic mass] 30.9 pg Normal 27.0-32.0 [facility] Comment on above: Performed By: #### L 100.0100, L501.2450, L500.4050 #### [facility] [address] [place], [address] MCHC (RBC) [Mass/Vol] 34.9 g/dL Normal 32-36 [facility] Comment on above: Performed By: #### L 100.0100, L501.2450, L500.4050 #### [facility] [address] [place], [address] MCV (RBC) [Entitic vol] 88.4 fL Normal 81-99 [facility] Comment on above: Performed By: #### L 100.0100, L501.2450, L500.4050 #### [facility] [address] [place], [address] Monocytes/100 WBC (Bld) 5.1 % Normal 0-10 [facility] Comment on above: Performed By: #### L 100.0100, L501.2450, L500.4050 #### [facility] [address] [place], [address] Neutrophils/100 WBC (Bld) 61.7 % Normal 47-70 [facility] Comment on above: Performed By: #### L 100.0100, L501.2450, L500.4050 #### [facility] [address] [place], [address] Nucleated RBC (Bld) [#/Vol] 0 10*3/uL Normal 0-5 [facility] Comment on above: Performed By: #### L 100.0100, L501.2450, L500.4050 #### [facility] [address] [place], [address] Platelet mean volume (Bld) [Entitic vol] 9.8 fL Normal 6.2-12.0 [facility] Comment on above: Performed By: #### L 100.0100, L501.2450, L500.4050 #### [facility] [address] [place], [address] Platelets (Bld) [#/Vol] 277 10*3/uL Normal 150-450 [facility] Comment on above: Performed By: #### L 100.0100, L501.2450, L500.4050 #### [facility] [address] [place], [address] RBC (Bld) [#/Vol] 4.24 10*6/uL Normal 4.2-5.4 [facility] Comment on above: Performed By: #### L 100.0100, L501.2450, L500.4050 #### [facility] [address] [place], [address] RDW SD 38.5 fl Normal 35.1-43.9 [facility] Comment on above: Performed By: #### L 100.0100, L501.2450, L500.4050 #### [facility] [address] [place], [address] WBC (Bld) [#/Vol] 7.4 10*3/uL Normal 4.4-11.0 [facility] Comment on above: Performed By: #### L 100.0100, L501.2450, L500.4050 #### [facility] [address] [place], [address] Carbon dioxide, total [Moles /volume] in Central venous bloodOrdered By: Kam Frey on 09-15-2024 CO2 [Moles/Vol] 26.8 mmol/L 21.0-32.0 [facility] Chloride assayOrdered By: Juan Carlos Frey on 09-15-2024 Chloride [Moles/Vol] 103 mmol/L 98-108 [facility] Comprehensive Metabolic Prof ilon 09-15-2024 Albumin [Mass/Vol] 4.3 g/dL Normal 3.5-5.0 [facility] Comment on above: Performed By: #### L 100.0100, L501.2450, L500.4050 #### [facility] [address] [place], [address] Albumin/Globulin [Mass ratio] 1.5 {ratio} Normal 0.9-2.4 [facility] Comment on above: Performed By: #### L 100.0100, L501.2450, L500.4050 #### [facility] [address] [place], [address] ALK PHOS 46 U/L Normal 35-104 [facility] Comment on above: Performed By: #### L 100.0100, L501.2450, L500.4050 #### [facility] [address] [place], [address] ALT [Catalytic activity/Vol] 8 U/L Normal <=34 [facility] Comment on above: Performed By: #### L 100.0100, L501.2450, L500.4050 #### [facility] [address] [place], [address] AST [Catalytic activity/Vol] 12 U/L Normal <=31 [facility] Comment on above: Performed By: #### L 100.0100, L501.2450, L500.4050 #### [facility] [address] [place], [address] Bilirubin [Mass/Vol] 0.39 mg/dL Normal 0.00-1.30 [facility] Comment on above: Performed By: #### L 100.0100, L501.2450, L500.4050 #### [facility] [address] [place], [address] BUN/CRE 16.4 RATIO Normal 10-20 [facility] Comment on above: Performed By: #### L 100.0100, L501.2450, [id number] #### [facility] [address] [place], [address] Calcium [Mass/Vol] 9.5 mg/dL Normal 7.6-11.0 [facility] Comment on above: Performed By: #### L 100.0100, L501.2450, L500.4050 #### [facility] [address] [place], [address] Chloride [Moles/Vol] 103 mmol/L Normal 98-108 [facility] Comment on above: Performed By: #### L 100.0100, L501.2450, L500.4050 #### [facility] [address] [place], [address] CO2 [Moles/Vol] 26.8 mmol/L Normal 21.0-32.0 [facility] Comment on above: Performed By: #### L 100.0100, L501.2450, L500.4050 #### [facility] [address] [place], [address] Creatinine [Mass/Vol] 0.87 mg/dL Normal 0.70-1.20 [facility] Comment on above: Performed By: #### L 100.0100, L501.2450, L500.4050 #### [facility] [address] [place], [address] ECRCL 72.74 ml/min Normal 50-250 [facility] Comment on above: Performed By: #### L 100.0100, L501.2450, L500.4050 #### [facility] [address] [place], [address] GAP 10 Normal 5-15 [facility] Comment on above: Performed By: #### L 100.0100, L501.2450, L500.4050 #### [facility] [address] [place], [address] GFR/1.73 sq M.predicted among non-blacks MDRD (S/P/Bld) [Vol rate/Area] 85 mL/min/{1.73_m2} Normal >60 [facility] Comment on above: Result Comment: mL/m in/1.73m2 CKD-EPI Creatinine Equation (2020) Performed By: #### L 100.0100, L501.2450, L500.4050 #### [facility] [address] [place], [address] Globulin (S) [Mass/Vol] 2.8 g/dL Normal 2.2-4.2 [facility] Comment on above: Performed By: #### L 100.0100, L501.2450, L500.4050 #### [facility] [address] [place], [address] Glucose [Mass/Vol] 99 mg/dL Normal 70-99 [facility] Comment on above: Performed By: #### L 100.0100, L501.2450, L500.4050 #### [facility] [address] [place], [address] Potassium [Moles/Vol] 3.9 mmol/L Normal 3.3-5.1 [facility] Comment on above: Performed By: #### L 100.0100, L501.2450, L500.4050 #### [facility] [address] [place], [address] Sodium [Moles/Vol] 140 mmol/L Normal 133-145 [facility] Comment on above: Performed By: #### L 100.0100, L501.2450, L500.4050 #### [facility] [address] [place], [address] T PROT 7.2 g/dL Normal 5.9-8.4 [facility] Comment on above: Performed By: #### L 100.0100, L501.2450, L500.4050 #### [facility] [address] [place], [address] Urea nitrogen [Mass/Vol] 14 mg/dL Normal 4-19 [facility] Comment on above: Performed By: #### L 100.0100, L501.2450, L500.4050 #### [facility] [address] [place], [address] Emergency Department Summary on 09-15-2024 Emergency Department Summary [facility] Medical Records Department [address] [place] [address] Emergency Department Summary 09/15/24 MR#: [id number] Acct: [id number] Name: ELVIA ARZOLA Rep #: [id number] : 1980 44 From: Kam Frey DO PCP: Dr. Piter Andrew DO Status:DEP ER Location: ED HPI HPI - GI History of Present Illness Chief Complaint: Abd Pain Informant: patient Abdominal Pain/Flank Pain Onset: Today Context: Sudden Onset Timing: Waxes and wanes Quality: Sharp and Stabbing Location: RUQ and RLQ Worsened by: Nothing Relieved by: Nothing Nausea/Vomiting/Emesi s GI Symptom: Positive for Nausea and Vomiting Quality: Positive for Nonbilious; Negative for Blood streaks, Coffee ground or Hematemesis Diarrhea/Melena/Hemat ochezia GI Symptom: Negative for Diarrhea, Melena or Hematochezia Associated Symptoms Associated Symptoms: Negative for Dysuria, Frequency or Hematuria Narrative Narrative: Patient presents with abdominal pain that began this morning. Patient states she woke up with pain in her right side of her abdomen. Patient describes it as sharp and stabbing. Patient states it started over the right mid abdomen and right upper quadrant. Patient states it feels like it started to radiate into the right lower abdomen. Patient admits to some nausea and vomiting. Patient denies any hematemesis or coffee-ground emesis. Patient does admit to a decreased appetite. Patient denies any diarrhea, melena, hematochezia. Patient denies any dysuria, frequency, or hematuria. Patient denies any fevers or chills. PFSH [facility] Medical History Genetic testing of female IBS (irritable bowel syndrome) Environmental allergies Diabetes CHANDAN (obstructive sleep apnea) Ankylosing hyperostosis Home Medications ???Medication ???Instructions ???Recorded ???Last Taken ???Type ixekizumab 80 mg/mL subcutaneous 80 mg subcut Q4W 10/23/21 Unknown History auto-injector (Taltz Autoinjector) omeprazole 20 mg capsule,delayed 20 mg PO DAILY 10/23/21 Unknown Hi story release tirzepatide 10 mg/0.5 mL 10 mg subcut QWEEK 12/10/22 Unknow n History subcutaneous pen injector (Mounjaro) celecoxib 200 mg capsule 200 mg PO DAILY RA 04/07/23 Unknow n History ondansetron 4 mg disintegrating 4 mg PO Q8H PRN PRN Nausea #10 tab s 09/15/24 Unknown Rx tablet Allergy/AdvReac Type Severity Reaction Status Date / Time amoxicillin (From Augmentin) AdvReac Mild Abd Verified 09/15/24 08:09 cramps/diarrhea clavulanic acid (From AdvReac Mild Abd Verified 09/15/24 08:09 Augmentin) cramps/diarrhea Family History (Reviewed 04/07/23 @ 07:54 by Laurence Guerra PUBLIC SAFETY DIRECTOR, PUBLIC SAFETY DIRECTOR-C) Father Hypertension Mother Cancer skin Breast cancer Grandfather Prostate cancer Grandmother Breast cancer Unknown Breast cancer Cousin Surgical History History of tonsillectomy History of hysterectomy Social History Smoking Status: Former smoker Tobacco: How many years used: 15 how long ago did patient quit smokin, 0.5ppd second hand exposure: Yes alcohol intake: never substance use type: does not use caffeine: Yes what type of physical activity do you participate in: walking frequency: 3-4 times per week seatbelt use: always additional social history: -Darío 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 ROS ED Constitutional Constitutional ED: Denies chills or fever(s) Eyes Eyes: Denies blurry vision or change in vision ENT ENT ED: Denies rhinorrhea or sore throat Cardiovascular Cardiovascular: Denies chest pain or palpitations Respiratory/Chest Respiratory/Chest: Denies cough or dyspnea Gastrointestinal Gastrointestinal: Reports abdominal pain, nausea and vomiting; Denies diarrhea or melena Genitourinary Genitourinary ED: Denies dysuria or hematuria Musculoskeletal Musculoskeletal: Denies back pain or neck pain Integumentary Denies abscess or rash Neurologic Neurologic: Denies headache(s) or weakness Allergic/Immunologic Allergic/Immunologic ED: Denies mouth swelling or urticaria EXAM Physical Exam Const Vital Signs: 09/15/24 08:08 Temperature 97.1 F L Temperature Source Temporal Pulse Rate 87 Respiratory Rate 14 Blood Pressure 107/73 Blood Pressure Mean 84 Pulse Ox 98 Oxygen Delivery Method Room Air Positive well nourished and well developed Constitutional Narrative: BMI is 24.7. General Appearance ED: well developed and NAD HEENT Reports moist mucous membranes Neck supple and no JVD Resp normal respiratory effort and clear to auscultation bilaterally Cardio regular rate and regular rhythm GI non-distended (more content not included)... Normal [facility] Eosinophil percentageOrdered By: Kam Frey on 09-15-2024 Eosinophils/100 WBC (Bld) 1.1 % 0-5 [facility] Erythrocyte distribution wid th ratioOrdered By: Kam Frey on 09-15-2024 Erythrocyte distribution width (RBC) [Ratio] 11.9 % 11.6-14.6 [facility] Erythrocyte distribution wid th standard deviationOrdered By: Kam Frey on 09-15-2024 Erythrocyte distribution width (RBC) [Ratio] 38.5 fl 35.1-43.9 [facility] Glomerular filtration rate ( GFR) estimation/1.73 sq m using serum, plasma, or whole bOrdered By: Kam Frey on 09-15-2024 GFR/1.73 sq M.predicted among non-blacks MDRD (S/P/Bld) [Vol rate/Area] 85 mL/min/{1.73_m2} >60 [facility] Comment on above: mL/min/1.73m2 CKD-EP I Creatinine Equation (2021) Hematocrit Auto (Bld) [Volum e fraction]Ordered By: Kam Frey on 09-15-2024 Hematocrit (Bld) [Volume fraction] 37.5 % 37-47 [facility] Hemoglobin measurementOrdere d By: Kam Frey on 09-15-2024 Hemoglobin (Bld) [Mass/Vol] 13.1 g/dL 12.0-15.0 [facility] Immature granulocytes/100 WB C Auto (Bld)Ordered By: Kam Frey on 09-15-2024 Immature granulocytes/100 WBC (Bld) 0.300 % 0.0-0.9 [facility] Comment on above: IG% - Immature Granu locytes (promyelocytes, myelocytes and metamyelocytes) > 1% indicates that a LEFT SHIFT is Present. Ketones Test strip Ql (U)Ord ered By: Kam Frey on 09-15-2024 Ketones Ql (U) Negative Negative [facility] - Chemistry and C hemistry - challengeOrdered By: Kam Frey on 09-15-2024 AST [Catalytic activity/Vol] 12 U/L <32 [facility] Lipaseon 09-15-2024 Lipase [Catalytic activity/Vol] 57 U/L Normal 13-75 [facility] Comment on above: Result Comment: [place] [employer] note: LIPASE revised reference range effective 22. New Lipase methodology. Expected to produce lower values than the previous assay method. NEW Reference Range: 13 - 75 U/L Performed By: #### L 100.0100, L501.2450, L500.4050 #### [facility] [address] [place] [address], [id number] Lipase measurementOrdered By : Kam Frey on 09-15-2024 Lipase [Catalytic activity/Vol] 57 U/L 13-75 [facility] Comment on above: Please note:LIPASE r evised reference range effective 22. New Lipase methodology. Expected to produce lower values than the previous assay method. NEW Reference Range: 13 - 75 U/L MCV (mean corpuscular volume ) determinationOrdered By: Kam Frey on 09-15-2024 MCV (RBC) [Entitic vol] 88.4 fL 81-99 [facility] Mean corpuscular hemoglobin (MCH) determinationOrdered By: Kam Frey on 09-15-2024 MCH (RBC) [Entitic mass] 30.9 pg 27.0-32.0 [facility] Mean corpuscular hemoglobin concentration (MCHC) determinationOrdered By: Kam Frey on 09-15-2024 MCHC (RBC) [Mass/Vol] 34.9 g/dL 32-36 [facility] Mean platelet volume determi nationOrdered By: Kam Frey on 09-15-2024 Platelet mean volume (Bld) [Entitic vol] 9.8 fL 6.2-12.0 [facility] Microscopic analysis of urin e for red blood cells (RBC)Ordered By: Kam Frey on 09-15-2024 Microscopic analysis of urine for red blood cells (RBC) 0 SEEN /hpf 0-5 [facility] Monocyte percentageOrdered B y: Kam Frey on 09-15-2024 Monocytes/100 WBC (Bld) 5.1 % 0-10 [facility] Mucus LM Ql (Urine sed)Order ed By: Kam Frey on 09-15-2024 Mucus Ql (Urine sed) 0 SEEN /hpf [facility] Neutrophil percentageOrdered By: Kam Frey on 09-15-2024 Neutrophils/100 WBC (Bld) 61.7 % 47-70 [facility] Nitrite Test strip Ql (U)Ord ered By: Kam Frey on 09-15-2024 Nitrite Ql (U) Negative Negative [facility] Nucleated red blood cell per centageOrdered By: Kam Frey on 09-15-2024 Nucleated RBC/100 WBC (Bld) [Ratio] 0 % 0-5 [facility] Platelet countOrdered By: Juan Carlos Frey on 09-15-2024 Platelets (Bld) [#/Vol] 277 10*3/uL 150-450 [facility] Potassium measurement (mass/ volume)Ordered By: Kam Frey on 09-15-2024 Potassium (Unsp spec) [Mass/Vol] 3.9 mmol/L 3.3-5.1 [facility] Protein Test strip Ql (U)Ord ered By: Kam Frey on 09-15-2024 Protein Ql (U) Negative Negative [facility] RBC Auto (Bld) [#/Vol]Ordere d By: Kam Frey on 09-15-2024 RBC (Bld) [#/Vol] 4.24 10*6/uL 4.2-5.4 [facility] Serum creatinine measurement (mass/volume)Ordered By: Kam Frey on 09-15-2024 Creatinine [Mass/Vol] 0.87 mg/dL 0.70-1.20 [facility] Serum globulin measurementOr dered By: Kam Frey on 09-15-2024 Globulin (S) [Mass/Vol] 2.8 g/dL 2.2-4.2 [facility] Serum glucose measurement (m ass/volume)Ordered By: Kam Frey on 09-15-2024 Glucose [Mass/Vol] 99 mg/dL 70-99 [facility] Serum or plasma alanine [place] otransferase (ALT) measurementOrdered By: Kam Frey on 09-15-2024 ALT [Catalytic activity/Vol] 8 U/L <35 [facility] Serum or plasma albumin adelina urement (mass/volume)Ordered By: Kam Frey on 09-15-2024 Albumin [Mass/Vol] 4.3 g/dL 3.5-5.0 [facility] Serum or plasma albumin/glob ulin mass ratioOrdered By: Kam Frey on 09-15-2024 Albumin/Globulin [Mass ratio] 1.5 {ratio} 0.9-2.4 [facility] Serum or plasma alkaline bina sphatase measurementOrdered By: Kam Frey on 09-15-2024 ALP [Catalytic activity/Vol] 46 U/L 35-104 [facility] Serum or plasma calcium adelina urement (mass/volume)Ordered By: Kam Frey on 09-15-2024 Calcium [Mass/Vol] 9.5 mg/dL 7.6-11.0 [facility] Serum or plasma urea nitroge n measurement (mass/volume)Ordered By: Kam Frey on 09-15-2024 Urea nitrogen [Mass/Vol] 14 mg/dL 4-19 [facility] Sodium levelOrdered By: Kam Frey on 09-15-2024 Sodium [Moles/Vol] 140 mmol/L 133-145 [facility] Squamous epithelial cells de tection in urine sediment by light microscopyOrdered By: Kam Frey on 09-15-2024 Epithelial cells.squamous LM Ql (Urine sed) 0-5 SEEN /hpf 5-10 [facility] Total proteinOrdered By: Catherine Frey on 09-15-2024 Protein [Mass/Vol] 7.2 g/dL 5.9-8.4 [facility] Urinalysis, Completeon 09-15 EPI,SQUAMOUS 0-5 SEEN Normal 5-10 [facility] Comment on above: Order Comment: LIZABETH CTOR TO SPECIFY Performed By: #### L 400.0001 #### [facility] [address] [place], [address] BACTERIA 0 SEEN Normal None Seen [facility] Comment on above: Order Comment: LIZABETH CTOR TO SPECIFY Performed By: #### L 400.0001 #### [facility] [address] [place], [address] Mucus Ql (Urine sed) 0 SEEN Normal [facility] Comment on above: Order Comment: LIZABETH CTOR TO SPECIFY Performed By: #### L 400.0001 #### [facility] [address] [place], [address] RBC 0 SEEN Normal 0-5 [facility] Comment on above: Order Comment: LIZABETH CTOR TO SPECIFY Performed By: #### L 400.0001 #### [facility] [address] [place], [address] WBC 0 SEEN Normal 0-5 [facility] Comment on above: Order Comment: LIZABETH CTOR TO SPECIFY Performed By: #### L 400.0001 #### [facility] [address] [facility] [address] Urine clarityOrdered By: Catherine Frey on 09-15-2024 Clarity (U) Clear Clear [facility] Urine color determinationOrd ered By: Kam Frey on 09-15-2024 Color (U) Yellow Yellow [facility] Urine glucose detectionOrder ed By: Kam Frey on 09-15-2024 Glucose Ql (U) Normal mg/dl Normal [facility] Urine leukocyte esterase det ection by dipstickOrdered By: Kam Frey on 09-15-2024 Leukocyte esterase Test strip Ql (U) Negative Negative [facility] Urine pHOrdered By: Kam hodges on 09-15-2024 pH (U) 8.0 [pH] 5.0 - 8.0 [facility] Urine sediment bacteria coun t by microscopy (number/high power field)Ordered By: Kam Frey on 09-15-2024 Bacteria LM.HPF (Urine sed) [#/Area] 0 /[HPF] None Seen [facility] Urine specific gravity measu rementOrdered By: Kam Frey on 09-15-2024 Specific gravity (U) [Rel density] 1.010 1.002-1.030 [facility] Urine urobilinogen measureme ntOrdered By: Kam Frey on 09-15-2024 Urobilinogen Ql (U) Normal mg/dl Normal [facility] White blood cell (WBC) count Ordered By: Kam Frey on 09-15-2024 WBC (Bld) [#/Vol] 7.4 10*3/uL 4.4-11.0 [facility] White blood cell countOrdere d By: Kam Frey on 09-15-2024 White blood cell count 0 SEEN /hpf 0-5 [facility] Absolute lymphocyte countOrd ered By: Christy London on 02-06-2023 Lymphocytes Auto (Unsp spec) [#/Vol] 3.59 10*3/uL 0.83-4.51 [facility] Basophil percentageOrdered B y: Christy London on 02-06-2023 Basophils/100 WBC (Bld) 0.6 % 0-1 [facility] Bilirubin [Mass/Vol] 0.50 mg/dL 0.20-1.00 [facility] Comment on above: For patients on eltr ombopag therapy, use of [place] TBIL is not recommended. Chloride [Moles/Vol] 107 mmol/L 98-107 [facility] Cholesterol [Mass/Vol] 205 mg/dL <200 [facility] Comment on above: <200 mg/dL Desirable 200-240 mg/dL Borderline >240 mg/dL High Risk Eosinophils/100 WBC (Bld) 1.7 % 0-5 [facility] Glucose [Mass/Vol] 94 mg/dL 74-106 [facility] Neutrophils (Bld) [#/Vol] 4.9 10*3/uL 2.0-7.7 [facility] Neutrophils/100 WBC (Bld) 53.8 % 47-70 [facility] Potassium [Moles/Vol] 3.7 mmol/L 3.5-5.1 [facility] Protein [Mass/Vol] 7.0 g/dL 6.4-8.2 [facility] Sodium [Moles/Vol] 141 mmol/L 136-145 [facility] Triglyceride [Mass/Vol] 112 mg/dL <199 [facility] Comment on above: The drugs N-Acetylcy steine and Metamizole may falsely depress this assay.Serum Triglycerides Reference Interval Normal <150 mg/dL Borderline high 150 - 199 mg/dL High 200 - 499 mg/dL Very High > or = 500 mg/dL WBC (Bld) [#/Vol] 9.1 10*3/uL 4.4-11.0 [facility] Blood erythrocytes count (nu mber/volume)Ordered By: Christy London on 02-06-2023 RBC (Bld) [#/Vol] 4.25 10*6/uL 4.2-5.4 [facility] Blood hemoglobin measurement (mass/volume)Ordered By: Christy London on 02-06-2023 Hemoglobin (Bld) [Mass/Vol] 12.9 g/dL 12.0-15.0 [facility] Blood lymphocytes/100 leukoc ytesOrdered By: Christy London on 02-06-2023 Lymphocytes/100 WBC (Bld) 39.5 % 19-41 [facility] Blood monocytes/100 leukocyt esOrdered By: Christy London on 02-06-2023 Monocytes/100 WBC (Bld) 4.2 % 0-10 [facility] Blood platelet mean volumeOr dered By: Christy London on 02-06-2023 Platelet mean volume (Bld) [Entitic vol] 10.6 fL 6.2-12.0 [facility] Determination of erythrocyte mean corpuscular volume (MCV)Ordered By: Christy London on 02-06-2023 MCV (RBC) [Entitic vol] 91.5 fL 81-99 [facility] Hematocrit Auto (Bld) [Volum e fraction]Ordered By: Christy London on 02-06-2023 Hematocrit (Bld) [Volume fraction] 38.9 % 37-47 [facility] - Chemistry and C hemistry - challengeOrdered By: Dalzell Surya on 02-06-2023 ALP [Catalytic activity/Vol] 41 U/L 45-117 [facility] ALT [Catalytic activity/Vol] 12 U/L 13-56 [facility] CO2 [Moles/Vol] 27.0 mmol/L 21.0-32.0 [facility] Globulin (S) [Mass/Vol] 3.6 g/dL 2.2-4.2 [facility] Urea nitrogen/Creatinine [Mass ratio] 11.1 mg/mg 10-20 [facility] - Hematology and Cell countsOrdered By: Dalzell Surya on 02-06-2023 Erythrocyte distribution width (RBC) [Entitic vol] 41.5 fL 35.1-43.9 [facility] Erythrocyte distribution width (RBC) [Ratio] 12.6 % 11.6-14.6 [facility] Immature granulocytes/100 WBC (Bld) 0.200 % 0.0-0.9 [facility] Comment on above: IG% - Immature Granu locytes (promyelocytes, myelocytes and metamyelocytes) > 1% indicates that a LEFT SHIFT is Present. MCH (RBC) [Entitic mass] 30.4 pg 27.0-32.0 [facility] Nucleated RBC/100 WBC (Bld) [Ratio] 0 % 0-5 [facility] MCHC Auto (RBC) [Mass/Vol]Or dered By: Christy London on 02-06-2023 MCHC (RBC) [Mass/Vol] 33.2 g/dL 32-36 [facility] No Panel InformationOrdered By: Christy London on 02-06-2023 Estimated GFR (MDRD) Amer 115 mL/min >60 [facility] Comment on above: GFR Calc Estimated GFR (MDRD) Non-Af Amer 95 mL/min >60 [facility] Comment on above: Non- GFR Calc Vitamin D 25-Hydroxy 63.7 ng/mL [facility] Comment on above: Vitamin D 25(OH) Sta tus Range Deficiency <20 ng/mL (50nmol/L) Insufficiency 20 - 30 ng/mL (50 - 75 nmol/L) Sufficiency 30 - 100 ng/mL (75 - 250 nmol/L) Toxicity >100 ng/mL (>250 nmol/L) Platelets bldOrdered By: Shan London on 02-06-2023 Platelets (Bld) [#/Vol] 332 10*3/uL 150-450 [facility] Serum or plasma albumin adelina urement (mass/volume)Ordered By: Christy London on 02-06-2023 Albumin [Mass/Vol] 3.4 g/dL 3.2-5.0 [facility] Serum or plasma albumin/glob ulin mass ratioOrdered By: Christy London on 02-06-2023 Albumin/Globulin [Mass ratio] 0.9 {ratio} 0.9-2.4 [facility] Serum or plasma calcium adelina urement (mass/volume)Ordered By: Christy London on 02-06-2023 Calcium [Mass/Vol] 8.6 mg/dL 8.5-10.1 [facility] Serum or plasma cholesterol in HDL measurement (mass/volume)Ordered By: Christy London on 02-06-2023 Cholesterol in HDL [Mass/Vol] 41 mg/dL >40 [facility] Comment on above: The drugs N-Acetylcy steine and Metamizole may falsely depress this assay. Reference Range HDL <40 mg/dL Low HDL Cholesterol HDL >or= 60 mg/dL High HDL Cholesterol Serum or plasma cholesterol in VLDL measurement (mass/volume)Ordered By: Christy London on 02-06-2023 Cholesterol in VLDL [Mass/Vol] 22 mg/dL 5-40 [facility] Serum or plasma creatinine m easurement (mass/volume)Ordered By: Christy London on 02-06-2023 Creatinine [Mass/Vol] 0.72 mg/dL 0.55-1.02 [facility] Comment on above: The validity of the calculated GFR & GFRAA in patients over 70 years has not been determined. Clinical correlation is essential. Serum or plasma low density lipoprotein (LDL) cholesterol measurement (mass/volume)Ordered By: Dalzell Surya on 02-06-2023 Cholesterol in LDL [Mass/Vol] 142 mg/dL 0-130 [facility] Serum or plasma urea nitroge n measurement (mass/volume)Ordered By: Christycindy London on 02-06-2023 Urea nitrogen [Mass/Vol] 8 mg/dL 7-18 [facility] [facility] Thin prep Papanicolaou smear with manual screeningOrdered By: [facility] on 02-[facility]23 Thin prep Papanicolaou smear with manual screening 13 U/L 15-37 [facility] Thin prep Papanicolaou smear with manual screening 7 5-15 [facility] Absolute lymphocyte counton 10-09-2021 Lymphocytes Auto (Unsp spec) [#/Vol] 3.12 10*3/uL 0.83-4.51 [facility] Work Phone: Basophil percentageon 2021 Basophils/100 WBC (Bld) 0.6 % 0-1 [facility] Work Phone: Bilirubin [Mass/Vol] 0.40 mg/dL 0.20-1.00 [facility] Work Phone: Comment on above: For patients on eltr ombopag therapy, use of [place] TBIL is not recommended. Chloride [Moles/Vol] 102 mmol/L 98-107 [facility] Work Phone: Cholesterol [Mass/Vol] 243 mg/dL <200 [facility] Work Phone: Comment on above: <200 mg/dL Desirable 200-240 mg/dL Borderline >240 mg/dL High Risk Eosinophils/100 WBC (Bld) 2.7 % 0-5 [facility] Work Phone: Glucose [Mass/Vol] 227 mg/dL 74-106 [facility] Work Phone: Comment on above: Glucose result great er than or equal to 200 mg/dLsuggests DIABETES MELLITUS per A.D.A. criteria. Neutrophils (Bld) [#/Vol] 4.8 10*3/uL 2.0-7.7 [facility] Work Phone: Neutrophils/100 WBC (Bld) 55.4 % 47-70 [facility] Work Phone: Potassium [Moles/Vol] 4.0 mmol/L 3.5-5.1 [facility] Work Phone: Protein [Mass/Vol] 7.3 g/dL 6.4-8.2 [facility] Work Phone: Sodium [Moles/Vol] 136 mmol/L 136-145 [facility] Work Phone: Triglyceride [Mass/Vol] 230 mg/dL <199 [facility] Work Phone: Comment on above: The drugs N-Acetylcy steine and Metamizole may falsely depress this assay.Serum Triglycerides Reference Interval Normal <150 mg/dL Borderline high 150 - 199 mg/dL High 200 - 499 mg/dL Very High > or = 500 mg/dL WBC (Bld) [#/Vol] 8.7 10*3/uL 4.4-11.0 [facility] Work Phone: Blood erythrocytes count (nu mber/volume)on 10-09-2021 RBC (Bld) [#/Vol] 4.33 10*6/uL 4.2-5.4 [facility] Work Phone: Blood hemoglobin measurement (mass/volume)on 10-09-2021 Hemoglobin (Bld) [Mass/Vol] 13.5 g/dL 12.0-15.0 [facility] Work Phone: Blood lymphocytes/100 leukoc yteson 10-09-2021 Lymphocytes/100 WBC (Bld) 36.0 % 19-41 [facility] Work Phone: Blood monocytes/100 leukocyt eson 10-09-2021 Monocytes/100 WBC (Bld) 5.0 % 0-10 [facility] Work Phone: Blood platelet mean volumeon 10-09-2021 Platelet mean volume (Bld) [Entitic vol] 10.4 fL 6.2-12.0 [facility] Work Phone: Determination of erythrocyte mean corpuscular volume (MCV)on 10-09-2021 MCV (RBC) [Entitic vol] 90.3 fL 81-99 [facility] Work Phone: Hematocrit Auto (Bld) [Volum e fraction]on 10-09-2021 Hematocrit (Bld) [Volume fraction] 39.1 % 37-47 [facility] Work Phone: Laboratory - Chemistry and C hemistry - challengeon 10-09-2021 ALP [Catalytic activity/Vol] 51 U/L 45-117 [facility] Work Phone: ALT [Catalytic activity/Vol] 18 U/L 13-56 [facility] Work Phone: CO2 [Moles/Vol] 24.0 mmol/L 21.0-32.0 [facility] Work Phone: Globulin (S) [Mass/Vol] 3.9 g/dL 2.2-4.2 [facility] Work Phone: Urea nitrogen/Creatinine [Mass ratio] 17.5 mg/mg 10-20 [facility] Work Phone: Laboratory - Hematology and Cell countson 10-09-2021 Erythrocyte distribution width (RBC) [Entitic vol] 40.6 fL 35.1-43.9 [facility] Work Phone: Erythrocyte distribution width (RBC) [Ratio] 12.3 % 11.6-14.6 [facility] Work Phone: Immature granulocytes/100 WBC (Bld) 0.300 % 0.0-0.9 [facility] Work Phone: Comment on above: IG% - Immature Granu locytes (promyelocytes, myelocytes and metamyelocytes) > 1% indicates that a LEFT SHIFT is Present. MCH (RBC) [Entitic mass] 31.2 pg 27.0-32.0 [facility] Work Phone: Nucleated RBC/100 WBC (Bld) [Ratio] 0 % 0-5 [facility] Work Phone: MCHC Auto (RBC) [Mass/Vol]on 10-09-2021 MCHC (RBC) [Mass/Vol] 34.5 g/dL 32-36 [facility] Work [facility]: No Panel Informationon 10-09 Estimated GFR (MDRD) Amer 102 mL/min >60 [facility] Work Phone: Comment on above: GFR Calc Estimated GFR (MDRD) Non-Af Amer 85 mL/min >60 [facility] Work Phone: Comment on above: Non- GFR Calc Insulin Level 19.9 mU/L 2.6-37.6 [facility] Work Phone: Thyroid Stimulating Hormone (TSH) 2.51 uIU/mL 0.358-3.74 [facility] Work Phone: Platelets bldon 10-09-2021 Platelets (Bld) [#/Vol] 296 10*3/uL 150-450 [facility] Work Phone: Serum or plasma albumin adelina urement (mass/volume)on 10-09-2021 Albumin [Mass/Vol] 3.4 g/dL 3.2-5.0 [facility] Work Phone: Serum or plasma albumin/glob ulin mass ratioon 10-09-2021 Albumin/Globulin [Mass ratio] 0.9 {ratio} 0.9-2.4 [facility] Work Phone: Serum or plasma calcium adelina urement (mass/volume)on 10-09-2021 Calcium [Mass/Vol] 8.8 mg/dL 8.5-10.1 [facility] Work Phone: Serum or plasma cholesterol in HDL measurement (mass/volume)on 10-09-2021 Cholesterol in HDL [Mass/Vol] 42 mg/dL >40 [facility] Work Phone: Comment on above: The drugs N-Acetylcy steine and Metamizole may falsely depress this assay. Reference Range HDL <40 mg/dL Low HDL Cholesterol HDL >or= 60 mg/dL High HDL Cholesterol Serum or plasma cholesterol in VLDL measurement (mass/volume)on 10-09-2021 Cholesterol in VLDL [Mass/Vol] 46 mg/dL 5-40 [facility] Work Phone: Serum or plasma creatinine m easurement (mass/volume)on 10-09-2021 Creatinine [Mass/Vol] 0.80 mg/dL 0.55-1.02 [facility] Work Phone: Comment on above: The validity of the calculated GFR & GFRAA in patients over 70 years has not been determined. Clinical correlation is essential. Serum or plasma low density lipoprotein (LDL) cholesterol measurement (mass/volume)on 10-09-2021 Cholesterol in LDL [Mass/Vol] 155 mg/dL 0-130 [facility] Work Phone: Serum or plasma urea nitroge n measurement (mass/volume)on 10-09-2021 Urea nitrogen [Mass/Vol] 14 mg/dL 7-18 [facility] Work Phone: Thin prep Papanicolaou smear with manual screeningon 10-09-2021 Thin prep Papanicolaou smear with manual screening 8 U/L 15-37 [facility] Work Phone: Thin prep Papanicolaou smear with manual screening 10 5-15 [facility] Work Phone: Whole blood hemoglobin A1c/t otal hemoglobin ratio (mass fraction)on 10-09-2021 HbA1c (Bld) [Mass fraction] 7.7 % 3.8-5.6 [facility] Work Phone: Comment on above: Normal < 5.7 % Predi abetic 5.7 - 6.4 % Diabetic >or= 6.5 % Please note range changes. NOVEL CORONAVIRUS NASOPHARYN GEAL - [facility] SPECIMEN ONLYon 11-09-2019 SARS-COV-2 NOT DETECTED Normal NOT DETECTED [facility] Comment on above: Order Comment: Viral transport [...] or clinically deteriorating. Performed By: #### L [id number] #### [facility] (DEFAULT) [address] [place] [address] NOVEL CORONAVIRUS NASOPHARYN GEAL - [facility] SPECIMEN ONLYon 11-02-2019 SARS-COV-2 NOT DETECTED Normal NOT DETECTED [facility] Comment on above: Order Comment: Viral transport [...] or clinically deteriorating. Performed By: #### L [id number] #### [facility] (DEFAULT) [address] [address] NOVEL CORONAVIRUS NASOPHARYN GEAL - [facility] SPECIMEN ONLYon 10-26-2019 SARS-COV-2 NOT DETECTED Normal NOT DETECTED [facility] Comment on above: Order Comment: Viral transport [...] or clinically deteriorating. Performed By: #### L [id number] #### [facility] (DEFAULT) [address] [address] A1C , Office ([id number])Ordere d By: Vanessa Meraz on 09-08-2013 HbA1c (Bld) [Mass fraction] 6.3 % Normal 4.6 - 7.1 [facility] Work Phone: THEO (ANTINUCLEAR ANTIBODY) ( [phone])Ordered By: Mottler Machine Feeder on 05-05-2012 Nuclear Ab Ql (S) Positive Abnormal [facility] Work Phone: Comment on above: PATIENT NOT FASTINGP ERFORMED BY: [facility] Bcisjk24[address] [id number] Nuclear Ab Ql (S) Positive Abnormal Compreh ensive [facility]; [facility] Work Phone: Comment on above: PATIENT NOT FASTINGP ERFORMED BY: [facility] [employer] Yicpoa[address] [id number] C-REACTIVE PROTEIN ([id number])Or dered By: Mottler Machine Feeder on 05-05-2012 CRP [Mass/Vol] 6.9 mg/L Abnormal 0.0-4.9 [facility] Work Phone: Comment on above: PATIENT NOT FASTINGP ERFORMED BY: [facility] Mxyubm5824 [address] [place] [id number] CALCIFIDIOL (94996) VIT D 25 Ordered By: Mottler Machine Feeder on 05-05-2012 25-Hydroxyvitamin D2+25-Hydroxyvitamin D3 [Mass/Vol] 25.0 ng/mL Abnormal 30.0-100.0 [facility] Work Phone: Comment on above: Vitamin D deficiency has been defined by the [place] [facility] and an Endocrine Society practice guideline as alevel of serum 25-OH vitamin D less than 20 ng/mL (1,2).The Endocrine Society went on to further define vitamin Dinsufficiency as a level between 21 and 29 ng/mL (2).1. IOM ([place] of Medicine). 2010. Dietary reference intakes for calcium and D. [place]: The National Academies Press.2. Tony MF, Angelique ANDRE, Van SOSA, et al. Evaluation, treatment, and prevention of vitamin D deficiency: an Endocrine Society clinical practice guideline. JCEM. 2010; 96(7):1911-30. PATIENT NOT FASTINGP ERFORMED BY: [facility] Hflzmu9216 [address] [facility] [place] [id number] CBC WITH MANUAL DIFF ([id number]) Ordered By: Mottler Machine Feeder on 05-05-2012 Basophils (Bld) [#/Vol] 0.0 {x10E3/uL} Normal 0.0-0.2 [facility] Work Phone: Comment on above: PATIENT NOT FASTINGP ERFORMED BY: DODIE AmayaKessler Institute for RehabilitationHvqxvj4204 [facility] [id number] Information: [id number] Basophils (Bld) [#/Vol] 0.0 10*3/uL Normal 0.0-0.2 [facility]; [facility] Work Phone: Comment on above: PATIENT NOT FASTINGP ERFORMED BY: DODIE Amaya[address] [id number] Information: [id number] Basophils/100 WBC (Bld) 0 % Normal 0-3 C [facility] Work Phone: Comment on above: PATIENT NOT FASTINGP ERFORMED BY: DODIE Amaya Lhnmkj1286 [facility] [id number] Information: [id number] Eosinophils (Bld) [#/Vol] 0.1 {x10E3/uL} Normal 0.0-0.4 [facility] Work Phone: Comment on above: PATIENT NOT FASTINGP ERFORMED BY: DODIE Murrell[address] [id number] Information: [id number] Eosinophils (Bld) [#/Vol] 0.1 10*3/uL Normal 0.0-0.4 [facility]; [facility] Work Phone: Comment on above: PATIENT NOT FASTINGP ERFORMED BY: DODIE AmayaRobert [place] [address] [facility] [id number] Information: [id number] Eosinophils/100 WBC (Bld) 1 % Normal 0-7 [facility] Work Phone: Comment on above: PATIENT NOT FASTINGP ERFORMED BY: DODIE AmayaRobert [place] [address]70 [facility] [id number] Information: [id number] Erythrocyte distribution width (RBC) [Ratio] 13.0 % Normal 12.3-15.4 [facility] Work Phone: Comment on above: PATIENT NOT FASTINGP ERFORMED BY: DODIE Amaya Keoegn7223 [facility] [id number] Information: [id number] Hematocrit (Bld) [Volume fraction] 41.8 % Normal 34.0-46.6 [facility] Work Phone: Comment on above: PATIENT NOT FASTINGP ERFORMED BY: DODIE Murrell[address] [id number] Information: [id number] Hemoglobin (Bld) [Mass/Vol] 14.1 g/dL Normal 11.1-15.9 [facility] Work Phone: Comment on above: PATIENT NOT FASTINGP ERFORMED BY: DODIE Amaya Mpfcih[address] [id number] Information: [id number] Immature granulocytes (Bld) [#/Vol] 0.0 {x10E3/uL} Normal 0.0-0.1 [facility] Work Phone: Comment on above: PATIENT NOT FASTINGP ERFORMED BY: DODIE MurrellAndrew [place] [address] [facility] [id number] Information: [id number] Immature granulocytes (Bld) [#/Vol] 0.0 10*3/uL Normal 0.0-0.1 [facility]; [facility] Work Phone: Comment on above: PATIENT NOT FASTINGP ERFORMED BY: DODIE MurrellAndrew [place] [address] [facility] [id number] Information: [id number] Immature granulocytes/100 WBC (Bld) 0 % Normal 0-2 [facility] Work Phone: Comment on above: PATIENT NOT FASTINGP ERFORMED BY: DODIE AmayaRobert [place] [address] [facility] [id number] Information: [id number] Lymphocytes (Bld) [#/Vol] 4.1 {x10E3/uL} Normal 0.7-4.5 [facility] Work Phone: Comment on above: PATIENT NOT FASTINGP ERFORMED BY: DODIE Amaya Vgzqbw9217 [facility] [id number] Information: [id number] Lymphocytes (Bld) [#/Vol] 4.1 10*3/uL Normal 0.7-4.5 [facility]; [facility] Work Phone: Comment on above: PATIENT NOT FASTINGP ERFORMED BY: DODIE Murrell[address] [id number] Information: [id number] Lymphocytes/100 WBC (Bld) 36 % Normal 14-46 [facility] Work Phone: Comment on above: PATIENT NOT FASTINGP ERFORMED BY: DODIE [address] [id number] Information: [id number] MCH (RBC) [Entitic mass] 31.3 pg Normal 26.6-33.0 [facility] Work Phone: Comment on above: PATIENT NOT FASTINGP ERFORMED BY: DODIE Murrell[address] [id number] Information: [id number] MCHC (RBC) [Mass/Vol] 33.7 g/dL Normal 31.5-35.7 [facility] Work Phone: Comment on above: PATIENT NOT FASTINGP ERFORMED BY: DODIE [place] [address] [facility] [id number] Information: [id number] MCV (RBC) [Entitic vol] 93 fL Normal 79-97 [facility] Work Phone: Comment on above: PATIENT NOT FASTINGP ERFORMED BY: DODIE [place] [address] [facility] [id number] Information: [id number] Monocytes (Bld) [#/Vol] 0.5 {x10E3/uL} Normal 0.1-1.0 [facility] Work Phone: Comment on above: PATIENT NOT FASTINGP ERFORMED BY: DODIE Rubio6370 [facility] [id number] Information: [id number] Monocytes (Bld) [#/Vol] 0.5 10*3/uL Normal 0.1-1.0 [facility]; [facility] Work Phone: Comment on above: PATIENT NOT FASTINGP ERFORMED BY: DODIE LabCowanda ClarkLbgrey5211 [facility] [id number] Information: [id number] Monocytes/100 WBC (Bld) 5 % Normal 4-13 C [facility]pship[facility] Work Phone: Comment on above: PATIENT NOT FASTINGP ERFORMED BY: DODIE Clarklin6370 [facility] [id number] Information: [id number] Neutrophils (Bld) [#/Vol] 6.4 {x10E3/uL} Normal 1.8-7.8 [facility] Work Phone: Comment on above: PATIENT NOT FASTINGP ERFORMED BY: DODIE Rubio6370 [facility] [id number] Information: [id number] Neutrophils (Bld) [#/Vol] 6.4 10*3/uL Normal 1.8-7.8 [facility]; [facility] Work Phone: Comment on above: PATIENT NOT FASTINGP ERFORMED BY: DODIE [facility] Yisvaw3730 [facility] [id number] Information: [id number] Neutrophils/100 WBC (Bld) 58 % Normal 40-74 [facility] Work Phone: Comment on above: PATIENT NOT FASTINGP ERFORMED BY: DODIE [facility] Bxkxsg6401 [facility] [id number] Information: [id number] Platelets (Bld) [#/Vol] 268 {x10E3/uL} Normal 140-415 [facility] Work Phone: Comment on above: PATIENT NOT FASTINGP ERFORMED BY: DODIE Ruth70 [facility] [id number] Information: [id number] Platelets (Bld) [#/Vol] 268 10*3/uL Normal 140-415 [facility]; [facility] Work Phone: Comment on above: PATIENT NOT FASTINGP ERFORMED BY: DODIE Ruth70 [facility] [id number] Information: [id number] RBC (Bld) [#/Vol] 4.51 {x10E6/uL} Normal 3.77-5.28 [facility] Work Phone: Comment on above: PATIENT NOT FASTINGP ERFORMED BY: DODIE Rubio6370 [facility] [id number] Information: [id number] RBC (Bld) [#/Vol] 4.51 10*6/uL Normal 3.77-5.28 [facility]; [facility] Work Phone: Comment on above: PATIENT NOT FASTINGP ERFORMED BY: DODIE Rubio6370 [facility] [id number] Information: [id number] WBC (Bld) [#/Vol] 11.2 {x10E3/uL} Abnormal 4.0-10.5 [facility] Work Phone: Comment on above: PATIENT NOT FASTINGP ERFORMED BY: DODIE Clarklin6370 [facility] [id number] Information: [id number] WBC (Bld) [#/Vol] 11.2 10*3/uL Abnormal 4.0-10.5 [facility]; [facility] Work Phone: Comment on above: PATIENT NOT FASTINGP ERFORMED BY: DODIE Clarklin6370 Garcia RoadDublin [place] [id number] Information: [id number] Folate (86367)Ordered By: Sy stem Starchmaker on 05-05-2012 Folate [Mass/Vol] 14.0 ng/mL Normal Compreh ensive [facility] Work Phone: Comment on above: A serum folate monroe ntration of less than 3.1 ng/mL isconsidered to represent clinical deficiency. PATIENT NOT FASTINGP ERFORMED BY: DODIE [facility] Cdkvws7878 Garcia RoadDublin [place] [id number] METABOLIC PANEL, COMPREHENSI VE ([id number])Ordered By: Mottler Machine Feeder on 05-05-2012 Albumin [Mass/Vol] 4.2 g/dL Normal 3.5-5.5 [facility] Work Phone: Comment on above: PATIENT NOT FASTINGP ERFORMED BY: DODIE [facility] Qqmejd8423 Garcia RoadDublin [place] [id number] Albumin/Globulin [Mass ratio] 1.7 {ratio} Normal 1.1-2.5 [facility] Work Phone: Comment on above: PATIENT NOT FASTINGP ERFORMED BY: DODIE [facility] Tzwiar7673 Garcia RoadDublin [place] [id number] ALP [Catalytic activity/Vol] 52 [iU]/L Normal 25-150 [facility] Work Phone: Comment on above: PATIENT NOT FASTINGP ERFORMED BY: CB [facility] Urmhsn3518 [address] RoadDublin [place] [id number] ALP [Catalytic activity/Vol] 52 U/L Normal 25-150 [facility]; [facility] Work Phone: Comment on above: PATIENT NOT FASTINGP ERFORMED BY: CB [facility] Rsrdmp7743 [address] RoadDublin [place] [id number] ALT [Catalytic activity/Vol] 14 [iU]/L Normal 0-32 [facility] Work Phone: Comment on above: PATIENT NOT FASTINGP ERFORMED BY: CB [facility] Kpogtm0013 [address] RoadDublin [place] [id number] ALT [Catalytic activity/Vol] 14 U/L Normal 0-32 [facility]; [facility] Work Phone: Comment on above: PATIENT NOT FASTINGP ERFORMED BY: CB [facility] Ltupjr8498 [address] RoadDublin [place] [id number] AST [Catalytic activity/Vol] 10 [iU]/L Normal 0-40 [facility] Work Phone: Comment on above: PATIENT NOT FASTINGP ERFORMED BY: CB [facility] Dzdeaq3006 [address] RoadDublin [place] [id number] AST [Catalytic activity/Vol] 10 U/L Normal 0-40 [facility]; [facility] Work Phone: Comment on above: PATIENT NOT FASTINGP ERFORMED BY: CB [facility] Omvtqf1044 [address] RoadDublin [place] [id number] Bilirubin [Mass/Vol] 0.2 mg/dL Normal 0.0-1.2 [facility] Work Phone: Comment on above: PATIENT NOT FASTINGP ERFORMED BY: CB [facility] Arkgxj6331 [address] RoadDublin [place] [id number] Calcium [Mass/Vol] 10.2 mg/dL Normal 8.7-10.2 [facility] Work Phone: Comment on above: PATIENT NOT FASTINGP ERFORMED BY: CB [facility] Eqbsmh4203 [address] RoadDublin [place] [id number] Chloride [Moles/Vol] 99 mmol/L Normal 97-108 [facility]erens[facility] Work Phone: Comment on above: PATIENT NOT FASTINGP ERFORMED BY: CB [facility] Aabqrx9046 [address] RoadDublin [place] [id number] CO2 [Moles/Vol] 23 mmol/L Normal 20-32 [facility] Work Phone: Comment on above: PATIENT NOT FASTINGP ERFORMED BY: CB [facility] Zplmen3505 [address] RoadDublin [place] [id number] Creatinine [Mass/Vol] 0.77 mg/dL Normal 0.57-1.00 Com prehensive [facility] Work Phone: Comment on above: PATIENT NOT FASTINGP ERFORMED BY: CB [facility] Jqnfei2260 [address] RoadDublin [place] [id number] GFR/1.73 sq M predicted among blacks CKD-EPI (S/P/Bld) [Vol rate/Area] 121 mL/min/1.73 Normal [facility] Work Phone: Comment on above: PATIENT NOT FASTINGP ERFORMED BY: CB [facility] Gdubdh8690 [address] RoadDublin [place] [id number] GFR/1.73 sq M predicted among non-blacks CKD-EPI (S/P/Bld) [Vol rate/Area] 105 mL/min/1.73 Normal [facility] Work Phone: Comment on above: PATIENT NOT FASTINGP ERFORMED BY: DODIE [facility] Cmthfw0523 [address] RoadDublin [place] [id number] Globulin (S) [Mass/Vol] 2.5 g/dL Normal 1.5-4.5 [facility] Work Phone: Comment on above: PATIENT NOT FASTINGP ERFORMED BY: CB [facility] Fkzfec7727 [address] RoadDublin [place] [id number] Glucose [Mass/Vol] 200 mg/dL Abnormal 65-99 [facility] Work Phone: Comment on above: PATIENT NOT FASTINGP ERFORMED BY: CB [facility] Kjzkhb3914 [address] [facility]in [place] [id number] Potassium [Moles/Vol] 3.8 mmol/L Normal 3.5-5.2 [facility] prehensive Internal Medicine Work Phone: Comment on above: PATIENT NOT FASTINGP ERFORMED BY: CB [facility] Gsblpe7323 [address] RoadDublin [place] [id number] Protein [Mass/Vol] 6.7 g/dL Normal 6.0-8.5 [facility] Work Phone: Comment on above: PATIENT NOT FASTINGP ERFORMED BY: CB [facility] Yxsykv5562 [address] RoadDublin [place] [id number] Sodium [Moles/Vol] 137 mmol/L Normal 134-144 [facility] Work Phone: Comment on above: PATIENT NOT FASTINGP ERFORMED BY: DODIE NyasiaCox Br[facility] Dybxjc3079 [facility] [id number] Urea nitrogen [Mass/Vol] 13 mg/dL Normal 6-20 [facility] Work Phone: Comment on above: PATIENT NOT FASTINGP ERFORMED BY: [facility]370 [facility] [id number] Urea nitrogen/Creatinine [Mass ratio] 17 mg/mg Normal 8-20 [facility] Work Phone: Comment on above: PATIENT NOT FASTINGP ERFORMED BY: [facility]6370 [facility] [id number] SED RATE ERYTHROCYTE ([id number]) Ordered By: Mottler Machine Feeder on 05-05-2012 ESR (Bld) [Velocity] 5 mm/h Normal 0-32 [facility] Internal [facility] Work Phone: Comment on above: PATIENT NOT FASTINGP ERFORMED BY: [facility] [facility] [id number] T3, FREE (TRIDOTHYRONINE) (7 [id number])Ordered By: Mottler Machine Feeder on 05-05-2012 Free T3 [Mass/Vol] 2.8 pg/mL Normal 2.0-4.4 [facility] Work Phone: Comment on above: PATIENT NOT FASTINGP ERFORMED BY: [facility] [facility] [id number] T4, FREE (THYROXINE) (12010) Ordered By: Mottler Machine Feeder on 05-05-2012 Free T4 [Mass/Vol] 1.09 ng/dL Normal 0.82-1.77 [facility] Work Phone: Comment on above: PATIENT NOT FASTINGP ERFORMED BY: [facility] [facility] [id number] TSH (64343)Ordered By: Systlori m Starchmaker on 05-05-2012 TSH Qn 1.480 {uIU/mL} Normal 0.450-4.500 [facility] Internal [facility] Work Phone: Comment on above: PATIENT NOT FASTINGP ERFORMED BY: [facility] [facility] [id number] VITAMIN B-12 (CYANOCOBALAMIN ) (05701)Ordered By: Mottler Machine Feeder on 05-05-2012 Cobalamin (Vitamin B12) [Mass/Vol] 592 pg/mL Normal 211-946 [facility] Work Phone: Comment on above: PATIENT NOT FASTINGP ERFORMED BY: [facility] [id number] [facility] [id number] Vital Signs Date Time Vital Sign Value Performing Clinician Facility 09-15-2024 11:11-0400 Body temperature 98.9 [degF] Dr. Piter Andrew DO Work Phone: [facility] 09-15-2024 11:11-0400 Diastolic blood pressure 66 mm[Hg] Dr. Piter Andrew DO Work Phone: [facility] 09-15-2024 11:11-0400 Heart rate 82 /min Dr. Piter Andrew DO Work Phone: [facility] 09-15-2024 11:11-0400 Respiratory rate 18 /min Dr. Piter Andrew DO Work Phone: [facility] 09-15-2024 11:11-0400 SaO2% (BldA) [Mass fraction] 100 % Dr. Piter Andrew DO Work Phone: [facility] 09-15-2024 11:11-0400 Systolic blood pressure 98 mm[Hg] Dr. Piter Andrew DO Work Phone: [facility] 09-15-2024 08:08-0400 Body height 162.[address] Piter Andrew DO Work Phone: [facility] 09-15-2024 08:08-0400 Body mass index (BMI) [Ratio] 24.7 kg/m2 Dr. Piter Andrew DO Work Phone: [facility] 09-15-2024 08:08-0400 Body weight 65.[address] Piter Andrew DO Work Phone: [facility] 12-10-2022 07:46-0400 Body height 162.[address] Piter Andrew Work Phone: [facility] 12-10-2022 07:46-0400 Body mass index (BMI) [Ratio] 26.4 kg/m2 Dr. Piter Andrew Work Phone: [facility] 12-10-2022 07:46-0400 Body temperature 96.9 [degF] Dr. Piter Andrew Work Phone: [facility] 12-10-2022 07:46-0400 Body weight 69.[address] Piter Andrew Work Phone: [facility] 12-10-2022 07:46-0400 Diastolic blood pressure 71 mm[Hg] Dr. Piter Andrew Work Phone: [facility] 12-10-2022 07:46-0400 Heart rate 65 /min Dr. Piter Andrew Work Phone: [facility] 12-10-2022 07:46-0400 Respiratory rate 18 /min Dr. Piter Adnrew Work Phone: [facility] 12-10-2022 07:46-0400 SaO2% (BldA) [Mass fraction] 99 % Dr. Piter Andrew Work Phone: [facility] 12-10-2022 07:46-0400 Systolic blood pressure 104 mm[Hg] Dr. Piter Andrew Work Phone: [facility] 10-23-2021 14:40-0400 Body height 162.[address] Piter Andrew Work Phone: [facility] Work Phone: 10-23-2021 14:40-0400 Body mass index (BMI) [Ratio] 34.7 kg/m2 Dr. Piter Andrew Work Phone: [facility] Work Phone: 10-23-2021 14:40-0400 Body weight 91.[address] Piter Andrew Work Phone: [facility] Work Phone: 10-23-2021 14:40-0400 Diastolic blood pressure 71 mm[Hg] Dr. Piter Andrew Work Phone: [facility] Work Phone: 10-23-2021 14:40-0400 Systolic blood pressure 107 mm[Hg] Dr. Piter Andrew Work Phone: [facility] Work Phone: 10-30-2014 10:09-0400 BMI (Body Mass Index) 32.62 kg/m2 Vanessa Meraz RN [facility] Work Phone: 10-30-2014 10:090400 Body Temperature 97.6 [degF] Vanessa Meraz RN [facility] Work Phone: Comment on above: Method: Temporal 10-30-2014 10:090400 Body weight 88.91 kg Vanessa Meraz RN [facility] Work Phone: 10-30-2014 10:090400 BP Diastolic 80 mm[Hg] Vanessa Meraz RN [facility] Work Phone: Comment on above: Patient Position: Sitting; Cuff Location : Left Arm; Cuff Size: Standard 10-30-2014 10:09-0400 BP Systolic 126 mm[Hg] Vanessa Meraz RN [facility] Work Phone: Comment on above: Patient Position: Sitting; Cuff Location : Left Arm; Cuff Size: Standard 10-30-2014 10:09-0400 BSA (Body Surface Area) 1.96 m2 Vanessa Meraz RN [facility] Work Phone: 10-30-2014 10:090400 Height 165.1 cm Vanessa Meraz RN [facility] Work Phone: 10-30-2014 10:0400 Pulse (Heart Rate) 72 /min Vanessa Meraz RN [facility] Work Phone: Comment on above: Pattern: Regular 10-30-2014 10:0400 Pulse Oximetry 96 % Tara Del Valle [...] Body Temperature 97.4 [degF] Sarah Mireles RN [facility] [...] 07-14-2012 08:34-0400 Pulse Oximetry 98 % Tara Eligio [facility] Work Phone: Comment on [...] [facility] Work Phone: 06-25-2012 10:09-0400 Height 165.1 cm Sarah Mireles RN [facility] Work Phone: 06-25-2012 10:09-0400 Pulse (Heart Rate) 64 /min Sarah Mireles RN [facility] Work Phone: Comment on above: Pattern: Regular 06-25-2012 10:09-0400 Respiratory Rate 18 /min Sarah Mrieles RN [facility] Work Phone: [...] Phone: Comment on above: Method: Oral 05-28-2012 10:11-0400 Body weight 84.03 kg Sarah Mireles RN [...] : Left Arm; Cuff Size: Large 05-28-2012 10:110400 BSA (Body Surface Area) 1.91 m2 Sarah Mireles RN [facility] Work Phone: 05-28-2012 10:110400 Height 165.1 cm Sarah Mireles RN [facility] Work Phone: 05-28-2012 10:11-0400 Pulse (Heart Rate) 60 /min Sarah Mireles RN [facility] Work Phone: Comment on above: Pattern: Regular 05-28-2012 10:11-0400 Respiratory Rate 20 /min Sarah Mireles RN [facility] Work Phone: Comment on above: Pattern: Unlabored 05-13-2012 09:27-0400 BMI (Body Mass Index) 31.95 kg/m2 Jalyn Neilmelvi [facility] Work Phone: 05-13-2012 09:27-0400 Body Temperature 98.4 [degF] Jalynshaquille Fernandezronda [facility] Work Phone: Comment on above: Method: Oral 05-13-2012 09:27-0400 Body weight 87.09 kg Jalyn Fernandezronda [facility] Work Phone: 05-13-2012 09:27-0400 BP Diastolic 78 mm[Hg] Jalyn Manmelvi [facility] Work Phone: Comment on above: Patient Position: Sitting; Cuff Location : Left Arm; Cuff Size: Standard 05-13-2012 09:27-0400 BP Systolic 116 mm[Hg] Jalyn Diaz [facility] Work Phone: Comment on above: Patient Position: Sitting; Cuff Location : Left Arm; Cuff Size: Standard 05-13-2012 09:27-0400 BSA (Body Surface Area) 1.94 m2 Jalyn Fernandezronda [facility] Work Phone: 05-13-2012 09:27-0400 Height 165.1 cm Jalyn Diaz [facility] Work Phone: 05-13-2012 09:27-0400 Pulse (Heart Rate) 78 /min Jalyn Diaz [facility] Work Phone: Comment on above: Pattern: Regular 05-13-2012 09:27-0400 Respiratory Rate 16 /min Jalyn Diaz [facility] Work Phone: Comment on above: Pattern: Unlabored 05-05-2012 10:11-0400 Body Temperature 98.3 [degF] Jalyn Diaz [facility] Work Phone: Comment on above: Method: Oral 05-05-2012 10:110400 Body weight 87.09 kg Jalyn Diaz [facility] Work Phone: 05-05-2012 10:11-0400 BP Diastolic 70 mm[Hg] Jalyn Diaz [facility] Work Phone: Comment on above: Patient Position: Sitting; Cuff Location : Left Arm; Cuff Size: Standard 05-05-2012 10:11-0400 BP Systolic 118 mm[Hg] Jalyn Diaz [facility] Work Phone: Comment on above: Patient Position: Sitting; Cuff Location : Left Arm; Cuff Size: Standard 05-05-2012 10:11-0400 Pulse (Heart Rate) 92 /min Jalyn Diaz [facility] Work Phone: Comment on [...] Date Encounter Type Care Provider Facility Start: 12-09-2024 ambulatory Piter Andrew Facility: [facility] Start: 12-06-2024 ambulatory Piter Lorrie Facility: [facility] Start: 09-15-2024 End: 09-15-2024 Emergency department patient visit Dr. Piter Andrew DO Work Phone: -Emergency Department Work Phone: Start: 03-12-2023 End: 03-12-[address] Piter Andrew Work Phone: [facility] Work Phone: Start: 03-12-2023 End: 03-12-[address] Piter Andrew Work Phone: [facility] Lab Work Phone: Start: 02-06-2023 End: 02-06-[address] Piter Andrew Work Phone: [facility] Work Phone: Start: 02-06-2023 End: 02-06-[address] Piter Andrew Work Phone: [facility] Work Phone: Start: 12-10-2022 End: 12-10-[address] Piter Andrew Work Phone: [facility] Work Phone: Start: 11-14-2022 End: 11-14-[address] Piter Andrew Work Phone: [facility] Work Phone: Start: 11-14-2022 End: 11-14-[address] Pitre Andrew Work Phone: [facility]-Physical Therapy Work Phone: Start: 11-14-2022 End: 11-14-[address] Piter Andrew Work Phone: [facility]-Outpatient Breast Imaging Work Phone: Start: 10-20-2022 End: 10-20-[address] Piter Andrew Work Phone: [facility] Start: 10-23-2021 End: 10-23-[address] Piter Andrew Work Phone: [facility] Start: 10-09-2021 End: 10-09-2021 ambulatory [facility] Work Phone: Start: 10-09-2021 End: 10-09-2021 Patient encounter procedure [facility] Start: 09-17-2021 End: 09-17-2021 Patient encounter procedure [facility] Start: 09-11-2021 End: 09-11-2021 Patient encounter procedure [facility] Start: 10-30-2014 End: 10-30-2014 Patient [...] Start: 10-06-2011 End: 10-06-2011 Patient encounter procedure Traa Del Valle [facility] Start: 10-06-2011 End: 10-06-2011 Patient encounter status Tara Del Valle DO Work Phone: [facility] Patient encounter procedure Tara Del Valle DO Work Phone: [facility]; [facility] Work Phone: Patient encounter status Lindsay Lio [facility]; [facility] Work Phone: Procedures Date Procedure Procedure Detail Performing Clinician Start: 09-15-2024 Urnls dip stick/tablet reagent auto microscopy Dr. Piter Andrew DO Work Phone: Start: 09-15-2024 Computed tomography of abdomen and pelvis with intravenous contrast Dr. Piter Andrew DO Work Phone: Start: 09-15-[address] iPter Andrew DO Work Phone: Start: 11-14-[address] Piter Andrew [...] Breast Limited Unilateral Comments: See Note; NOTES: [facility] Imaging Services [address] [place] [address] Verdana 4d Breast Limited Unilateral MR#: [id number] Acct: [id number] Name: ELVIA ARZOLA Rep #: [id number] : 1980 F 34 From: Maximus Majano MD PCP: Tara Del Valle DO Status: REG CLI Study: Breast Limited Unilateral Date of Exam: 03/29/15 Exam# [id number] Ordering Dr: Josafat Muñoz MD STUDY: ULTRASOUND [...] Maximus Majano MD at 10:47 EST Tel [phone], Service support [phone], STUDY: ULTRASOUND BREAST - LEFT REASON FOR [...] Maximus Majano MD at 10:48 EST Tel [phone], Service support [phone], CC: Josafat Muñoz MD; Tara Del Valle DO Market Researcher: Signed Tara Del Valle Start: 03-29-2015 End: 03-29-2015 Bilat Diag Digital AND CAD Comments: See Note; NOTES: [facility] Imaging Services [address] [place] [address] Verdana 4d Bilat Diag Digital AND CAD MR#: [id number] Acct: [id number] Name: ELVIA ARZOLA Rep #: [id number] : 1980 F 34 From: Maximus Majano MD PCP: Tara Del Valle DO Status: [facility] Study: Bilat Diag Digital AND CAD Date of Exam: 03/29/15 Exam# [id number] Ordering Dr: Josafat Muñoz MD MAMMOGRAPHY - [...] Maximus Majano MD at 10:30 EST Tel [phone], Service support [phone], CC: Josafat Muñoz MD; Tara Del Valle DO Market Researcher: Signed Tara Del Valle Start: 09-22-2014 End: 09-22-2014 Pelvis (Routine) Comments: See Note; NOTES: [facility] Imaging Services [address] [place] [address] MRI Report MR#: [id number] Acct: [id number] Name: ELVIA ARZOLA Rep #: [id number] : 1980 F 34 From: Dung Joseph MD PCP: Tara Del Valle DO Status: REG CLI Study: Pelvis (Routine) Date of Exam: 09/22/14 Exam# [id number] Ordering Dr: Jennifer Benitez STUDY: MRI BILATERAL [...] FACR at 13:55 EDT , Service support [phone], CC: JENNIFER BENITEZ; Tara Del Valle DO Market Researcher: Signed Tara Eligio Start: 09-14-2014 End: 09-14-2014 Chest PA and Lateral Comments: See Note; NOTES: [facility] Imaging Services [address] [place] [address] Radiology Report MR#: [id number] Acct: [id number] Name: ELVIA ARZOLA Rep #: [id number] : 1980 F 34 From: Clarence Clement DO PCP: Tara Del Valle DO Status: REG CLI Study: Chest PA and Lateral Date of Exam: 09/14/14 Exam# [id number] Ordering Dr: Jennifer Benitez STUDY: X-RAY CHEST [...] Clarence Clement DO at 16:38 EDT Tel [phone], Service support [phone], RAD/Chest PA and Lateral IMPRESSION: 1. No acute cardiopulmonary disease. 2. Stable scoliosis when compared with January 05, 2013. Electronically Signed: Clarence Clement DO at 16:38 EDT Tel [phone], Service support [phone], CC: JENNIFER BENITEZ; Tara Del Valle DO Market Researcher: Signed Tara Del Valle Start: 02-09-2002 End: 02-09-2002 Tonsillectomy Vanessa Linwood Meraz H/O: hysterectomy History of hysterectomy H/O: surgery Tonsillectomy Vanessa L Kt R N Comment on above: 2003 History of tonsillectomy History of tonsi llectomy Plan of Treatment Date Care Activity Detail Author Start: 09-15-2024 [facility] Start: 02-22-2016 HbA1c (Bld) [Mass fraction] Hemoglobin Glyclated (HGB A1C) (65566) [facility] Work Phone: Start: 02-22-2016 Hemoglobin glycosylated a1c Hemoglobin Glyclated (HGB A1C) (85524) [facility]; [facility] Work Phone: Start: 10-25-2015 HbA1c (Bld) [Mass fraction] Hemoglobin Glyclated (HGB A1C) (66934) [facility] Work Phone: Start: 10-25-2015 Hemoglobin glycosylated a1c Hemoglobin Glyclated (HGB A1C) (37774) [facility]; [facility] Work Phone: Start: 06-27-2015 HbA1c (Bld) [Mass fraction] Hemoglobin Glyclated (HGB A1C) (12663) [facility] Work Phone: Start: 06-27-2015 Hemoglobin glycosylated a1c Hemoglobin Glyclated (HGB A1C) (49281) [facility]; [facility] Work Phone: Start: 02-27-2015 HbA1c (Bld) [Mass fraction] Hemoglobin Glyclated (HGB A1C) (67692) [facility] Work Phone: Start: 02-27-2015 Hemoglobin glycosylated a1c Hemoglobin Glyclated (HGB A1C) (21410) [facility]; [facility] Work Phone: Start: 10-30-2014 Procedure Education Eprescribe d prescriptions (G8553) [facility] Work Phone: Start: 10-30-2014 Provider Instruction s for Treatment Follow up in 4 months [facility] Work Phone: Start: 10-30-2014 HbA1c (Bld) [Mass fraction] Hemoglobin Glyclated (HGB A1C) (51982) [facility] Work Phone: Start: 10-30-2014 Hemoglobin glycosylated a1c Hemoglobin Glyclated (HGB A1C) (64123) [facility]; [facility] Work Phone: Start: 10-30-2014 Hepatic function panel HEPATIC FUNCTION PANEL (56114) [facility] Work Phone: Start: 10-30-2014 Lipid panel LIPID PANEL (72337) [facility] Work Phone: Start: 09-08-2013 Provider Instruction s for Treatment [facility] Work Phone: Start: 09-08-2013 Lipid panel LIPID PANEL (78303) [facility] Work Phone: Comment on above: do in december Start: 09-09-2012 25 hydroxy includes fractions if performed Vitamin D Hydroxy (13808) [facility] Work Phone: Start: 07-14-2012 [...] Start: 05-13-2012 Rheumatoid factor quantitative RHEUMATOID FACTOR-QUANT (93915) test code 787120 [facility] Work Phone: Start: 05-13-2012 Extractable nuclear antigen antibody any method [facility] Work Phone: Start: 05-13-2012 Protein [Mass/Vol] ANTI-INVESTMENT SPECIALIST (A NTI RIBONUCLEAR PROTEIN ANTIBODY) (34599) test code 184871 [facility] Work Phone: Start: 05-13-2012 Dna antibody cahto/double stranded DNA ANTIBODY-NATV/DBL ST (09531) test code 440187 [facility] Work Phone: Start: 05-13-2012 HbA1c (Bld) [Mass fraction] Hemoglobin Glyclated (HGB A1C) (35708) [facility] Work Phone: Start: 05-13-2012 Hemoglobin glycosylated a1c Hemoglobin Glyclated (HGB A1C) (81428) [facility]; [facility] Work Phone: Start: 05-05-2012 Patient Education Abdominal Pa in: abdominal pain [facility] Work Phone: Start: 05-05-2012 Provider Instruction s for Treatment [facility] Work Phone: Start: 10-06-2011 Provider Instruction s for Treatment Reviewed Lab [facility] Work Phone: Start: 10-06-2011 Lipid panel LIPID PANEL (68282) [facility] Work Phone: Comment on above: do in 5-6 months Start: 10-06-2011 HbA1c (Bld) [Mass fraction] Hemoglobin Glyclated (HGB A1C) (49404) [facility] Work Phone: Start: 10-06-2011 Hemoglobin glycosylated a1c Hemoglobin Glyclated (HGB A1C) (97017) [facility]; [facility] Work Phone: MG Breast - bilatera l Screening [facility] Work Phone: Patient Education ED Abdominal P ain Unkn Cause Fem [facility] Work Phone: [facility] Work Phone: [facility] Work Phone: [facility] Work Phone: [facility] Work Phone: Immunizations Immunization Date Immunization Notes Care Provider Fa cility 03-12-2020 Covid (Moderna) [facility] 02-13-2020 Covid (Moderna) [facility] 12-13-2018 influenza, injectabl e, quadrivalent, preservative free Dr. Piter Andrew Work Phone: [facility] 12-13-2018 influenza, seasonal, injectable [facility] Work Phone: 11-23-2017 tetanus toxoid, redu james diphtheria toxoid, and acellular pertussis vaccine, adsorbed [facility] 11-06-2017 influenza, injectabl e, quadrivalent, preservative free Dr. Piter Andrew Work Phone: [facility] 11-06-2017 influenza, seasonal, injectable [facility] Work Phone: 11-24-2016 influenza, injectabl e, quadrivalent, preservative free Dr. Piter Andrew Work Phone: [facility] 11-24-2016 influenza, seasonal, injectable [facility] Work Phone: 11-08-2015 influenza, injectabl e, quadrivalent, preservative free Dr. Piter Andrew Work Phone: [facility] 11-08-2015 influenza, seasonal, injectable [facility] Work Phone: 12-25-2014 influenza, injectabl e, quadrivalent, preservative free Dr. Piter Andrew Work Phone: [facility] 12-25-2014 influenza, seasonal, injectable [facility] Work Phone: 11-16-2013 influenza, injectabl e, quadrivalent, preservative free Dr. Piter Andrew Work Phone: [facility] 11-16-2013 influenza, seasonal, injectable [facility] Work Phone: 01-03-2013 Influenza virus vaccine [facility] Payers Date Payer Category Payer Private Health Insurance [id number] 2024 Self-pay [id number] 2013 Unknown [id number] Private Health Insurance [id number] Unknown [facility] Unknown [id number] Unknown [id number] Unknown [id number] Unknown [id number] Social History Date Type Detail Facility [...] Medicine Work Phone: [facility] Work Phone: Comment on above: 2 CHILDREN UNDER 18 Pets/Animals: Pets/Animals: [facility]; [facility] Work Phone: Tobacco use: Tobacco use: [facility]; [facility] Work Phone: Comment on above: 02/10 ppd Start: 02-20-2021 End: 12-10-2022 Tobacco smoking status NHIS Unknown if ever smoked [facility] Start: 08-01-2019 Spouse/ Signif icant Other;With Family [facility] Start: 1980 Sex Assigned At Female [facility] Start: 09-15-2024 Tobacco smoking status NHIS Ex-smoker (finding) [facility] Goals Date Patient Goal Desired Activity /State Radiology Diagnostic study note 09-15-2024 Note Date & Type Note Facility 09-15-2024 Radiology Diagnostic study note [facility] Imaging Services [address], [place] [address] Abdomen/Pelvis W IV Cont ONLY MR#: [id number] Acct: [id number] Name: ELVIA ARZOLA Rep #: [id number] : 1980 F 44 From: Juan Jose Majano MD PCP: Dr. Piter Andrew DO Status: REG ER Study:Abdomen/Pelvis W IV Cont ONLY Date of E xam: 09/15/24 Exam# [id number] Ordering Dr: Kam Frey DO PROCEDURE: ABDOMEN/PELVIS W IV CONT ONLY 09/15/2024 REASON FOR EXAM: ABDOMINAL PAIN Nausea and vomiting. TECHNIQUE: ABDOMEN/PELVIS W IV CONT ONLY Coronal and Sagittal reconstruction series were provided. CONTRAST: Isovue 370 VOLUME: 100 mL One or more dose reduction techniques were used (e.g., Automated exposure control, adjustment of the mA and/or kV according to patient size, use of iterative reconstruction technique. RADIATION DOSE SUMMARY: CTDlvol: 11 mGy DLP: 616.94 mGycm COMPARISON: None FINDINGS: Lung bases: Lung bases are clear. No coronary artery calcification is seen. Liver: Normal size. No mass. Gallbladder: Unremarkable Spleen: Normal size. Pancreas: Normal size without evidence of mass surrounding inflammation or ductal dilation. Adrenals: Unremarkable Kidneys: Normal renal sizes. No hydronephrosis. Bladder: Unremarkable Reproductive Organs: Small bilateral ovarian follicles. Bowel: Nonspecific bowel gas pattern. Scattered sigmoid diverticula. Appendix: Unremarkable Lymph nodes: Unremarkable. Vasculature: The abdominal aorta and IVC are normal. Peritoneum / Retroperitoneum: Unremarkable. Bones: Dextroscoliosis. CT/Abdomen/Pelvis W IV Cont ONLY IMPRESSION: Small bilateral ovarian follicles. Reading Location: [id number] CC: Dr. Kam Frey DO; Dr. Piter Andrew DO ~ Market Researcher: Signed [facility] Discharge summary 11-19-2022 Note Date & Type Note Facility 11-19-2022 Discharge summary Note Date/Time November 19, 2022 10:32am [facility] [address] [place] [address]. [address] [place] [address] / REHABILITATION SERVICES DISCHARGE SUMMARY MR#: [id number] Acct: [id number] Name: ELVIA ARZOLA Rep #: [id number] : 1980 42 From: Elli Recinos PT, Cert. MDT Referring Dr.: Dr. Navin Joseph MD Status: REG R Insurance: [facility] [employer]EL[employer]Y [employer]URANCE Discharge Summary D/C summary: [...] please feel free to call me at [phone]. Thank you for the referral of thispatient. Sincerely, Elli Recinos, PT, Cert MDT Balance/Gait/Functional tests Balance/Special Test Scores Oswestry Low Back Score: 13 Improvement % Improvement: 0 <Electronically signed by Elli Recinos PT, Cert. MDT> 11/19/22 1031 CC: Dr. Navin Joseph MD; Dr. 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 CHANDAN (obstructive sleep apnea) chronic [facility] Work Phone: Instructions Note Date & Type Note Facility Instructions Name How to access health information online Indication:Annual physical exam Start: Instruction Type:Patient Education How to access health [...] Internal Medicine; [facility] Work Phone: Reason for referral (narrative) Note Date & Type Note Facility Reason for referral (narrative) No reason for referral information available [facility] Work Phone: Summary Purpose Family History No [...] Not Specified Malignant neoplasm of breast Unknown Relationship Condition Age at Onset Recorded Date/T farhana father Hypertension Unknown mother Malignant neoplasm Unknown Malignant neoplasm of breast Unknown grandfather Malignant neoplasm of prostate Unknown grandmother Malignant neoplasm of breast Unknown unrelated friend Malignant neoplasm of breast Unknown Advance Directives No Advanced Directives Records Found Advance Directive Response Recorded Date/ Time Living Will No September 01, 2019 4:02pm Power of Embedded Software Engineer No August 31 0 4:02pm Advance Directive Response Recorded Date/ Time Living Will No September 01, 2019 3:02pm Power of Embedded Software Engineer No August 31 0 3:02pm Advance Directive Response Recorded Date/ Time Advance Directives No November 25, 2013 10:13am Living Will No September 01, 2019 4:02pm Power of Embedded Software Engineer No August 31 0 4:02pm Advance Directive Response Recorded Date/ Time Advance Directives No November 25, 2013 9:13am Living Will No September 01, 2019 3:02pm Power of Embedded Software Engineer No August 31 0 3:02pm Advance Directive Response Recorded Date/ Time Do you have a Healthcare Power of Embedded Software Engineer? 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) Reason for Visit Encounter for routin e gynecological examination Chief Complaint XRAY SCREENING SI DYSFUNCTION RX HERE Chief Complaint XRAY SCREENING SI DYSFUNCTION RX HERE Needs sleep study Reason for Visit Obesity (BMI 30.0-34 .9) CHANDAN (obstructive sleep apnea) Chief Complaint Needs sleep study OBSTRUCTIVE SLEEP APNEA Reason for Visit Obesity (BMI 30.0-34 .9) CHANDAN (obstructive sleep apnea) Chief Complaint Admit Date N/V September 15, 2024 8:0 8am Additional Source Comments INFORMATION SOURCE (unrecogn ized section and content) DATE CREATED AUTHOR 11/11/2019 [facility] DATE CREATED AUTHOR AUTHOR'S ORGANIZ ATION 12/09/2024 [facility] Care Teams (unrecognized sec tion [...] Piter Andrew DO Primary Care Provider Active GABRIELLA McmahonC Attending Provider, Referring Prov ider Active Team Status: Inactive Member Role Status Dates Dr. Piter Andrew DO Primary Care Provider, Referrin g Provider Active Laurence Guerra NP, PUBLIC SAFETY DIRECTOR-C Attending Provider Active Team Status: Inactive Member Role Status Dates Dr. Piter Andrew DO Primary Care Provider Active Laurence Guerra PUBLIC SAFETY DIRECTOR, PUBLIC SAFETY DIRECTOR-C Attending Provider, Vangie joiner Provider Active Team Status: Active Member Role/Relationship Status Dates Dr. Piter Andrew DO Primary Care Provider Active Team Status: Inactive Member Role/Relationship Status Dates Dr. Piter Andrew DO Primary Care Provider Active Start: September 15, 2024 End: September 15, 2024 Dr. Kam Frey , Emergency Provider Active Start: September 15, 2024 End: September 15, 2024 FOR RECORDS PERTAINING TO PATIENTS WHO ARE [...] BE BASED ON THE PRIMARY CLINICAL RECORDS. [employer] provides no warranty or guarantee of the accuracy or completeness of information in this document.
[2024-12-26 11:02] LABS: Microalbumin,Random Urine 31.9 mg/L (<20 mg/L)
[2024-12-26 11:17] LABS: AST(SGOT) 13 U/L (<=31); Alanine Aminotransfer ALT/SGPT 10 U/L (<=34); Albumin, Serum 4.3 g/dL (3.5-5.0); Alkaline Phosphatase 37 U/L (35-104); Bilirubin, Direct 0.16 mg/dL (0.00-0.30); Cholesterol 252 mg/dL (<=200); Globulin 2.8 g/dL (2.2-4.2); Low Density Lipoprotein Calc. 179 mg/dL; Triglycerides 153 mg/dL; Very Low Density Lipoprotein 31 mg/dL (5-40); cholesterol:hdl ratio screen 5.61
== END | disposition home or self-care (01) ==
LOC: MTLAB 08:47
PROVIDERS: PCP Family Medicine; Referring Provider Family Medicine; Visit Provider Family Medicine
DX: Z00.00 Encounter for general adult medical examination without abnormal findings (principal); E11.9 Type 2 diabetes mellitus without complications
CPT/HCPCS: 36415; 80061; 80076; 82043; 82570; 83036; 84443